=== PATIENT | male | born 1960 | race Caucasian/White ===

== ENCOUNTER 2016-10-22 14:15 | Observation (INO) | payer MEDICARE, MEDICAID ==
--- NOTE | 2016-10-22 14:48 | ER Document Report ---
ED Medical Screen (RME) - General Stated Complaint: CHEST PAIN Notes: 56 yo male, c/o acute onset left sided chest pain while on dialysis. pt dialyzed 1 1/2 h today. + shortness of breath, + nausea. + hx/o CHF, stents x 3. TRAVEL OUTSIDE OF THE [place] IN LAST 30 DAYS: No - Related Data Allergies/Adverse Reactions: cayenne pepper fruits Allergy (Intermediate, Verified 02/13/16 00:11) Past Medical History - Past Medical History Cardiac Medical History: Reports: Hx Atrial Fibrillation, Hx Congestive Heart Failure, Hx Coronary Artery Disease, Hx Hypertension Denies: Hx Heart Attack Pulmonary Medical History: Reports: Hx Pneumonia Denies: Hx Asthma, Hx Bronchitis, Hx COPD Neurological Medical History: Denies: Hx Cerebrovascular Accident, Hx Seizures Endocrine Medical History: Reports: Hx Diabetes Mellitus Type 2 Renal/ Medical History: Reports: Hx End Stage Renal Disease Musculoskeltal Medical History: Denies Hx Arthritis Past Surgical History: Reports: Hx Cardiac Surgery - stent x3, Hx Vascular Surgery - fistula left arm - Immunizations Hx Diphtheria, Pertussis, Tetanus Vaccination: Yes
[2016-10-22 15:17] LABS: ABSOLUTE BASOPHILS # (AUTO) 0.1 10^3/uL (0.0-0.2); ABSOLUTE EOSINOPHILS # (AUTO) 0.1 10^3/uL (0.0-0.6); ABSOLUTE LYMPHOCYTES (AUTO) 1.9 10^3/uL (0.5-4.7); ABSOLUTE MONOCYTES (AUTO) 0.6 10^3/uL (0.1-1.4); ABSOLUTE NEUT (AUTO) 6.3 10^3/uL (1.7-8.2); BASOPHILS % (AUTO) 0.7 % (0-2); HEMATOCRIT 34.2 % (37.9-51.0); HEMOGLOBIN 11.9 g/dL (13.5-17.0); HGB HCT DIFFERENCE 1.5; LYMPHOCYTES % (AUTO) 20.8 % (13-45); MEAN CORPUSCULAR HEMOGLOBIN 31.6 pg (27.0-33.4); MEAN CORPUSCULAR HGB CONC 34.8 g/dL (32.0-36.0); MEAN CORPUSCULAR VOLUME 91 fl (80-97); MONOCYTES % (AUTO) 7.1 % (3-13); RED BLOOD COUNT 3.76 10^6/uL (4.35-5.55); SEGMENTED NEUTROPHILS % (AUTO) 70.4 % (42-78)
[2016-10-22 15:38] LABS: ALANINE AMINOTRANSFERASE 21 U/L (21-72); ALKALINE PHOSPHATASE 89 U/L (38-126); ANION GAP 12 (5-19); ASPARTATE AMINO TRANSFERASE 15 U/L (17-59); BILIRUBIN,TOTAL 0.8 mg/dL (0.2-1.3); BLOOD UREA NITROGEN 33 mg/dL (7-20); CALCIUM 8.5 mg/dL (8.4-10.2); CARBON DIOXIDE 28 mmol/L (22-30); CHLORIDE 96 mmol/L (98-107); CREATINE KINASE 58 U/L (55-170); CREATININE RESULT 3.58 mg/dL (0.52-1.25); GLUCOSE 301 mg/dL (75-110); POTASSIUM 4.3 mmol/L (3.6-5.0); SODIUM 135.5 mmol/L (137-145); TOTAL PROTEIN 6.7 g/dL (6.3-8.2)
[2016-10-22 15:47] LABS: CREATINE KINASE MB 1.47 ng/mL (<4.55); TROPONIN I 0.02 ng/mL
[2016-10-22] MEDS ORDERED: METOCLOPRAMIDE HCL ORAL SOLN 10 MG/10 ML UDCUP PO ONE (17:05)
[2016-10-22] MEDS ORDERED: LIDOCAINE 2% VISCOUS SOLN 20 ML UDCUP PO ONE (17:05)
[2016-10-22] MEDS ORDERED: MAG HYDROX/AL HYDROX/SIMETH SUSP 30 ML UDCUP PO ONE (17:05)
[2016-10-22] MEDS ORDERED: ONDANSETRON HCL INJ/PF 4 MG/2 ML SDV IV PRN (17:49)
[2016-10-22] MEDS ORDERED: IPRATROPIUM/ALBUTEROL 0.5-2.5 MG/3 ML AMPUL NEB PRN (17:49)
[2016-10-22] MEDS ORDERED: ACETAMINOPHEN 325 MG TABLET PO PRN (17:49)
--- NOTE | 2016-10-22 18:23 | ER Document Report ---
ED General - General Chief Complaint: Chest Pain > 30 Stated Complaint: CHEST PAIN TRAVEL OUTSIDE OF THE [place] IN LAST 30 DAYS: No - HPI Patient complains to provider of: chest pain Notes: Patient coming in for evaluation of chest pain. Patient has history coronary artery disease states he has 6 stents placed in. Patient also has end-stage renal disease. Patient states while in dialysis he was sleeping woke up having central chest pain radiating to his back. Patient denies any nausea vomiting diarrhea. Patient was transported to the ER further evaluation. Patient denies any recent fevers chills antibiotics recent travel. Patient denies history of PE. Upon evaluation patient is resting comfortably easily arousable has he was sleeping upon my initial evaluation states he still having chest pain 6 out of 10. Patient states chest pain is worse when he moves around and when the chest is touched. Patient states he is concerned is that this is similar to when he had his heart attack in the past. - Related Data Allergies/Adverse Reactions: cayenne pepper fruits Allergy (Intermediate, Verified 10/22/16 14:45) Past Medical History - Social History Smoking Status: Never Smoker Chew tobacco use (# tins/day): No Frequency of alcohol use: None Drug Abuse: None Family History: Reviewed & Not Pertinent Patient has suicidal ideation: No Patient has homicidal ideation: No - Past Medical History Cardiac Medical History: Reports: Hx Atrial Fibrillation, Hx Congestive Heart Failure, Hx Coronary Artery Disease, Hx Hypertension Denies: Hx Heart Attack Pulmonary Medical History: Reports: Hx Pneumonia Denies: Hx Asthma, Hx Bronchitis, Hx COPD Neurological Medical History: Denies: Hx Cerebrovascular Accident, Hx Seizures Endocrine Medical History: Reports: Hx Diabetes Mellitus Type 2 Renal/ Medical History: Reports: Hx End Stage Renal Disease. Denies: Hx Peritoneal Dialysis Musculoskeltal Medical History: Denies Hx Arthritis Past Surgical History: Reports: Hx Cardiac Catheterization, Hx Cardiac Surgery - stent x3, Hx Vascular Surgery - fistula left arm - Immunizations Hx Diphtheria, Pertussis, Tetanus Vaccination: Yes Hx Pneumococcal Vaccination: 09/14/14 Review of Systems - Review of Systems Constitutional: No symptoms reported EENT: No symptoms reported Cardiovascular: Chest pain Respiratory: No symptoms reported Gastrointestinal: No symptoms reported Genitourinary: No symptoms reported Male Genitourinary: No symptoms reported Musculoskeletal: No symptoms reported Skin: No symptoms reported Hematologic/Lymphatic: No symptoms reported Neurological/Psychological: No symptoms reported -: Yes All other systems reviewed and negative Physical Exam - Vital signs Vitals: Temp Pulse Resp BP Pulse Ox 98.0 F 64 18 101/48 L 98 10/22/16 14:48 10/22/16 14:48 10/22/16 14:48 10/22/16 14:48 10/22/16 14:48 Interpretation: Normal - General General appearance: Appears well, Alert - HEENT Head: Normocephalic, Atraumatic Eyes: Normal Pupils: PERRL - Respiratory Respiratory status: No respiratory distress Chest status: Tender - Reproducible chest wall tenderness Breath sounds: Normal Chest palpation: Normal - Cardiovascular Rhythm: Regular Heart sounds: Normal auscultation Murmur: No - Abdominal Inspection: Normal Distension: No distension Bowel sounds: Normal Tenderness: Nontender Organomegaly: No organomegaly - Back Back: Normal, Nontender - Extremities General upper extremity: Normal inspection, Nontender, Normal color, Normal ROM , Normal temperature General lower extremity: Normal inspection, Nontender, Normal color, Normal ROM , Normal temperature, Normal weight bearing. No: Gabby's sign - Neurological Neuro grossly intact: Yes Cognition: Normal Orientation: AAOx4 [place] Coma Scale Eye Opening: Spontaneous [place] Coma Scale Verbal: Oriented [place] Coma Scale Motor: Obeys Commands [place] Coma Scale Total: 15 Speech: Normal Motor strength normal: LUE, RUE, LLE, RLE Sensory: Normal - Psychological Associated symptoms: Normal affect, Normal mood - Skin Skin Temperature: Warm Skin Moisture: Dry Skin Color: Normal Course - Re-evaluation Re-evalutation: 10/22/16 19:25 Patient is troponin EKG does not show any acute pathology. Discussed with patient's PCP. Initially requesting a CTA be performed to rule out PE however because patient is a dialysis patient after discussing with his internal medicine doctor Dr. Hanley and lucas the patient will have an receiving his next dialysis per internal medicine doctor's recommendation will not undergo CTa scan at this time Requesting second troponin and a VQ scan to be performed. At this time patient otherwise really stable. CT of the chest without contrast does show a mass that has no change from previous images. - Vital Signs Vital signs: Temp Pulse Resp BP Pulse Ox 98.0 F 64 11 L 114/63 99 10/22/16 14:48 10/22/16 14:48 10/22/16 19:00 10/22/16 18:01 10/22/16 19:00 - Laboratory Result Diagrams: 10/22/16 14:55 10/22/16 14:55 Laboratory results interpreted by me: 10/22/16 10/22/16 14:55 14:55 RBC 3.76 L Hgb 11.9 L Hct 34.2 L Sodium 135.5 L Chloride 96 L BUN 33 H Creatinine 3.58 H Est GFR ( Amer) 21 L Est GFR (Non-Af Amer) 18 L Glucose 301 H AST 15 L Discharge - Discharge Clinical Impression: CKD (chronic kidney disease) stage 5, GFR less than 15 ml/min Chest pain Qualifiers: Chest pain type: unspecified Qualified Code(s): R07.9 - Chest pain, unspecified CAD (coronary artery disease) Qualifiers: Coronary Disease-Associated Artery/Lesion type: unspecified vessel or lesion type [place] vs. transplanted heart: unspecified whether [place] or transplanted heart Associated angina: without angina Qualified Code(s): I25.10 - Atherosclerotic heart disease of [place] coronary artery without angina pectoris Condition: Fair Disposition: ADMITTED INPATIENT Admitting Provider: [facility] Admitted: [facility]
[2016-10-22] MEDS: DOCUSATE SODIUM 100 MG CAPSULE PO SCH (19:08)
--- NOTE | 2016-10-22 20:22 | PDOC CONSULTATION ---
Consultation Consult Date: 10/22/16 Attending physician:: PADMINI BOND Consult reason:: Chest pain and shortness of breath History of Present Illness Admission Date/PCP: 10/22/16 17:49 PADMINI BOND MD Patient complains of: Chest pain History of Present Illness: RITA GAFFNEY is a 56 year old male, well-known to me from previous office visits. He presents with chest pain worse the end of dialysis. This is described as sharp, getting worse on taking a deep breath. Patient describes radiation to the left arm and also describes radiation to the left leg. Patient describes the discomfort as rather constant and also gets worse on movement. There is no relation to exertion. There are no significant other associated symptoms. Patient did have a nuclear stress test I believe in May 2016 which was negative. Patient has history of chronic kidney disease on dialysis. Patient denied any recent fever or chills. Patient has history of sleep apnea and has been on CPAP therapy. Past Medical History Cardiac Medical History: Reports: Atrial Fibrillation, Congestive Heart Failure , Coronary Artery Disease, Hypertension Denies: Myocardial Infarction Pulmonary Medical History: Reports: Pneumonia Denies: Asthma, Bronchitis, Chronic Obstructive Pulmonary Disease (COPD) Neurological Medical History: Denies: Seizures Endocrine Medical History: Reports: Diabetes Mellitus Type 2 Renal/ Medical History: Reports: End Stage Renal Disease Musculoskeltal Medical History: Denies: Arthritis Hematology: Reports: Anemia Past Surgical History Past Surgical History: Reports: Cardiac Catheterization, Vascular Surgery - fistula left arm Social History Information Source: Patient Smoking Status: Never Smoker Frequency of Alcohol Use: Rare Hx Recreational Drug Use: No Drugs: None Hx Prescription Drug Abuse: No Family History Family History: Reviewed & Not Pertinent Parental Family History Reviewed: Yes Children Family History Reviewed: Yes Sibling(s) Family History Reviewed.: Yes - Negative for premature coronary artery disease or sudden cardiac in the family amongst first degree relatives. Patient does have family history of CAD but not premature. Medication/Allergy Home Medications: Furosemide [Lasix 80 mg Tablet] 80 mg PO QAM 08/14/15 Insulin Glargine,Hum.rec.anlog [Lantus Insulin 100 Unit/1 ml 10 ml] 55 units SQ BID 10/22/16 Ketoconazole [Nizoral] 1 applic TOP DAILY 10/22/16 Lorazepam [Ativan 0.5 mg Tablet] 0.5 mg PO Q12HP PRN 10/22/16 Pregabalin [Lyrica] 200 mg PO QHS 10/22/16 Tramadol HCl [Ultram 50 mg Tablet] 50 mg PO Q12HP PRN 10/22/16 Allergies/Adverse Reactions: cayenne pepper fruits Allergy (Intermediate, Verified 10/23/16 02:54) Review of Systems Review of Systems: Please see history of present illness and past medical history as wall. Constitutional: No fever or chills reported. Head : No recent chronic headaches, recent head injury. Eyes: No recent eye pain, diplopia, redness, discharge, acute visual changes. Ears: No recent chronic ear pain, acute hearing loss, ear discharge. Oral cavity: No recent ulcerations, bleeding, oral cavity discomfort. Neck: No recent acute neck pain reported. Hematologic: No recent easy bruising or bleeding or hematologic malignancy reported. Lymphatic: No recent lymphatic malignancy, chronic lymphadenopathy reported yet Cardiovascular system review: See history of present illness. Respiratory system review: No recent chronic cough, hemoptysis, blood clots in the lungs reported. Mild Shortness of breath on exertion Gastrointestinal system review: Negative for any recent acute or chronic abdominal pain, hematemesis, melena, recent change in bowel habits. Genitourinary system review: No recent acute or chronic hematuria, flank pain, UTI etc. reported. Patient with end-stage renal disease and on regular dialysis therapy. Skin system review: Negative for any recent abnormal bruising, no rash, no pruritus reported. Neurologic: No prior history of strokes, mini strokes, seizure disorder. Psychologic: No history of major psychosis or depression reported. Musculoskeletal: Minor aches and pains reported. No acute joint swelling reported. Endocrine: No recent polyuria, polydipsia, recent heat or cold intolerance. Physical Exam Vital Signs: Temp Pulse Resp BP Pulse Ox 98.0 F 64 11 L 114/63 99 10/22/16 14:48 10/22/16 14:48 10/22/16 19:00 10/22/16 18:01 10/22/16 19:00 Exam: GENERAL: well-nourished and in no acute distress. Alert and oriented x3 HEAD: Atraumatic, normocephalic. EYES: Pupils equal round and reactive to light, extraocular movements intact, sclera anicteric, conjunctiva are normal. ENT: TMs normal, nares patent, oropharynx clear without exudates. Moist mucous membranes. No oral ulcerations or bleeding gums noted NECK: supple without lymphadenopathy. Trachea is central. No cervical or axillary lymphadenopathy noted. Carotids are 2+, JVD WNL LUNGS: Respiration seems nonlabored, no significant accessory muscle action noted. Breath sounds clear to auscultation bilaterally and equal. No wheezes rales or rhonchi. No significant dullness noted on percussion. CHEST: Palpation of the chest wall shows elicitable chest wall tenderness but no other abnormalities. 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 ABDOMEN: Soft, no significant tenderness appreciated, normoactive bowel sounds. No guarding, no rebound. No rigidity noted . No masses appreciated. EXTREMITIES: Pedal pulses are 1-2+, no calf tenderness noted. No clubbing or cyanosis.trace to 1+ pedal edema noted NEUROLOGICAL: Focused neurological exam showed no significant neurologic deficit. Normal speech, no focal weakness appreciated. PSYCH: Normal mood, normal affect. Judgment and insight within normal limits. SKIN: No significant ecchymosis, rash, ulcerations or signs of pruritus noted. MUSCULOSKELETAL EXAM: No significant joint swelling noted. Results Laboratory Results: 10/22/16 18:40 Troponin I 0.021 EKG Comments: Sinus rhythm with nonspecific T-wave inversion inferior lead and V6. Impressions: Chest CT 10/22/16 00:00 IMPRESSION: The left lower lobe posterior mass and atelectasis appear unchanged compared with the January 2016 examination. Persistent basilar pleural thickening is present, also stable appearing. Minimal chronic appearing subsegmental atelectasis is present in the medial basilar segment of the right lower lobe. No acute consolidation or pleural effusion. Chest X-Ray 10/22/16 14:49 IMPRESSION: No significant interval change. No acute changes. Other findings as noted above Assessment & Plan - Diagnosis (1) CAD (coronary artery disease) Qualifiers: Coronary Disease-Associated Artery/Lesion type: unspecified vessel or lesion type [place] vs. transplanted heart: unspecified whether [place] or transplanted heart Associated angina: angina presence unspecified Qualified Code(s): I25.10 - Atherosclerotic heart disease of [place] coronary artery without angina pectoris Is this a current diagnosis for this admission?: YesPlan: Patient has known history of CAD. Currently patient presents with atypical chest pain which is felt to be noncardiac by exam. Patient does have some nonspecific T-wave changes which are probably related to LVH. Recent stress test results were reviewed. Will review previous heart catheterization result. At this point will continue with medical management and risk factor modification. Agree with obtaining VQ scan since patient at risk for pulmonary embolism and since patient has obesity. (2) CKD (chronic kidney disease) stage 5, GFR less than 15 ml/min Is this a current diagnosis for this admission?: YesPlan: Patient being followed by program director group work. Currently on dialysis on a regular basis. (3) Chest pain Qualifiers: Chest pain type: unspecified Qualified Code(s): R07.9 - Chest pain, unspecified Is this a current diagnosis for this admission?: Yes (4) Diabetes mellitus Qualifiers: Diabetes mellitus type: type 2 Chronic kidney disease stage: on chronic dialysis Is this a current diagnosis for this admission?: YesPlan: Recommend good control of blood sugar. However should avoid any hypoglycemia. Patient being expertly managed by primary care MSravanthi. (5) Obesity Qualifiers: Obesity severity: unspecified obesity severity Is this a current diagnosis for this admission?: YesPlan: Discussed obesity management with the patient. He was encouraged to try to lose weight. (6) Sleep apnea syndrome Qualifiers: Sleep apnea type: unspecified type Qualified Code(s): G47.30 - Sleep apnea, unspecified Is this a current diagnosis for this admission?: YesPlan: Patient has known history of sleep apnea syndrome. Patient will benefit from compliance with CPAP therapy. (7) Dyspnea Qualifiers: Dyspnea type: unspecified Qualified Code(s): R06.00 - Dyspnea, unspecified Is this a current diagnosis for this admission?: YesPlan: This is multifactorial. Could be related to obesity, diastolic dysfunction, ischemia equivalent etc. Have ordered a 2-D echo to evaluate for any pericardial effusion especially since patient has advanced renal failure and is on dialysis. - Notes Notes: CODE STATUS was discussed, patient remains full code. Surrogate decision-maker patient's . Multiple medical problems were addressed. - Time Time Spent: 30 to 50 Minutes - More than 50% of the time spent coordinating care , discussing management plans with involved caregivers. Management plans discussed with involved personnels. Medical decision making was of moderate complexity.
[2016-10-22] MEDS: OXYCODONE-ACETAMINOPHEN 5-325 MG TABLET PO PRN (20:38)
[2016-10-22 21:44] LABS: CREATINE KINASE MB 1.16 ng/mL (<4.55); TROPONIN I 0.018 ng/mL
[2016-10-23] MEDS ORDERED: INSULIN REG, HUMAN 100 UNIT/ML 3 ML VIAL (PYX) ONE (01:46)
[2016-10-23] MEDS ORDERED: DEXTROSE 40% GEL 15 GM TUBE X 2 PO PRN (02:02)
[2016-10-23] MEDS ORDERED: GLUCAGON,HUMAN RECOMB 1 MG INJ IM PRN ×2 (02:02→08:14)
[2016-10-23] MEDS ORDERED: DEXTROSE 50%-WATER SYRINGE 25 GM/50 ML DOSE IV PRN (02:02)
[2016-10-23] MEDS ORDERED: DEXTROSE 50%-WATER SYRINGE 12.5 GM/25 ML DOSE IV PRN (02:02)
[2016-10-23] MEDS ORDERED: DEXTROSE 40% GEL 15 GM TUBE PO PRN ×3 (02:02→08:14)
[2016-10-23 03:33] LABS: ANION GAP 9 (5-19); BLOOD UREA NITROGEN 42 mg/dL (7-20); CARBON DIOXIDE 30 mmol/L (22-30); CHLORIDE 97 mmol/L (98-107); CREATINE KINASE 39 U/L (55-170); CREATININE RESULT 4.84 mg/dL (0.52-1.25); GLUCOSE 393 mg/dL (75-110); MAGNESIUM 1.8 mg/dL (1.6-2.3); POTASSIUM 4.3 mmol/L (3.6-5.0); SODIUM 135.5 mmol/L (137-145)
[2016-10-23 03:44] LABS: CREATINE KINASE MB 0.91 ng/mL (<4.55); TROPONIN I 0.014 ng/mL
[2016-10-23] MEDS: LANSOPRAZOLE 30 MG TAB.RAP.DR PO SCH ×2 (05:56→17:04)
[2016-10-23] MEDS ORDERED: LANSOPRAZOLE 15 MG TAB.RAP.DR PO SCH (06:00)
[2016-10-23 08:11] LABS: APPEARANCE,URINE CLEAR; BILIRUBIN,URINE NEGATIVE (NEGATIVE); GLUCOSE, URINE >=500 mg/dL (NEGATIVE); KETONES,URINE NEGATIVE (NEGATIVE); LEUKOCYTE ESTERASE,URINE NEGATIVE (NEGATIVE); NITRITE,URINE NEGATIVE (NEGATIVE); PROTEIN,URINE 100 mg/dL (NEGATIVE); URINE SPECIFIC GRAVITY 1.017; UROBILINOGEN,URINE NEGATIVE mg/dL (<2.0)
[2016-10-23] MEDS ORDERED: LORAZEPAM 0.5 MG TABLET PO PRN (08:13)
[2016-10-23] MEDS ORDERED: TRAMADOL HCL 50 MG TABLET PO PRN ×2 (08:13→09:35)
--- NOTE | 2016-10-23 08:13 | PDOC PROGRESS REPORT ---
Subjective Progress Note for:: 10/23/16 Subjective:: Patient is doing fair denied any chest pain and no shortness of the breath recent CT chest is stable VQ scan is negative seen by the Dr. luna and suggest noncardiac atypical chest pain. Patient is also under a lot of stress due to his family situations. Physical Exam Vital Signs: Temp Pulse Resp BP Pulse Ox 97.4 F 56 L 16 109/57 L 100 10/23/16 07:22 10/23/16 07:22 10/23/16 07:22 10/23/16 07:22 10/23/16 07:22 Intake & Output 10/22/16 10/23/16 10/24/16 06:59 06:59 06:59 Intake Total 232 Output Total 0 Balance 232 Weight 142.3 kg General appearance: PRESENT: no acute distress, well-developed, well-nourished Head exam: PRESENT: atraumatic, normocephalic Eye exam: PRESENT: conjunctiva pink, EOMI, PERRLA. ABSENT: scleral icterus Ear exam: PRESENT: normal external ear exam Mouth exam: PRESENT: moist, tongue midline Neck exam: PRESENT: full ROM. ABSENT: carotid bruit, JVD, lymphadenopathy, thyromegaly Cardiovascular exam: PRESENT: RRR. ABSENT: diastolic murmur, rubs, systolic murmur Pulses: PRESENT: normal dorsalis pedis pul, +2 pedal pulses bilateral Vascular exam: PRESENT: normal capillary refill GI/Abdominal exam: PRESENT: normal bowel sounds, soft. ABSENT: distended, guarding, mass, organolmegaly, rebound, tenderness Rectal exam: PRESENT: deferred Neurological exam: PRESENT: alert, awake, oriented to person, oriented to place , oriented to time, oriented to situation, CN II-XII grossly intact. ABSENT: motor sensory deficit Psychiatric exam: PRESENT: appropriate affect, normal mood. ABSENT: homicidal ideation, suicidal ideation Skin exam: PRESENT: dry, intact, warm. ABSENT: cyanosis, rash Results Laboratory Results: 10/23/16 03:11 10/23/16 03:11 Sodium 135.5 L Potassium 4.3 Chloride 97 L Carbon Dioxide 30 Anion Gap 9 BUN 42 H Creatinine 4.84 H Est GFR ( Amer) 15 L Est GFR (Non-Af Amer) 12 L Glucose 393 H Calcium 8.0 L Magnesium 1.8 10/22/16 10/22/16 10/22/16 18:40 21:00 21:00 Creatine Kinase 45 L CK-MB (CK-2) 1.16 Troponin I 0.021 0.018 10/23/16 10/23/16 03:11 03:11 Creatine Kinase 39 L CK-MB (CK-2) 0.91 Troponin I 0.014 Impressions: Chest CT 10/22/16 00:00 IMPRESSION: The left lower lobe posterior mass and atelectasis appear unchanged compared with the January 2016 examination. Persistent basilar pleural thickening is present, also stable appearing. Minimal chronic appearing subsegmental atelectasis is present in the medial basilar segment of the right lower lobe. No acute consolidation or pleural effusion. Chest X-Ray 10/22/16 14:49 IMPRESSION: No significant interval change. No acute changes. Other findings as noted above Lung Scan-VQ NM 10/22/16 17:38 IMPRESSION: No ventilation-perfusion mismatches. Assessment & Plan - Diagnosis (1) Chest pain Qualifiers: Chest pain type: unspecified Qualified Code(s): R07.9 - Chest pain, unspecified Is this a current diagnosis for this admission?: YesPlan: So far all workup is negative and patient's denied any chest pain any more possibly may be acid reflux versus underlying stress and the chest wall pain (2) COPD (chronic obstructive pulmonary disease) Qualifiers: COPD type: unspecified COPD Qualified Code(s): J44.9 - Chronic obstructive pulmonary disease, unspecified Is this a current diagnosis for this admission?: YesPlan: order ct chest neb rx (3) Diabetes mellitus Qualifiers: Diabetes mellitus type: type 2 Chronic kidney disease stage: on chronic dialysis Is this a current diagnosis for this admission?: YesPlan: cont ss cont curr med (4) ESRD (end stage renal disease) on dialysis Is this a current diagnosis for this admission?: YesPlan: consult nephrology on hd (5) History of atrial fibrillation Is this a current diagnosis for this admission?: YesPlan: f/u with cardilogy (6) CAD (coronary artery disease) Qualifiers: Coronary Disease-Associated Artery/Lesion type: unspecified vessel or lesion type [place] vs. transplanted heart: unspecified whether [place] or transplanted heart Associated angina: angina presence unspecified Qualified Code(s): I25.10 - Atherosclerotic heart disease of [place] coronary artery without angina pectoris Is this a current diagnosis for this admission?: YesPlan: Recent stress test per cardiology is stable - Time Time Spent with patient: 15-24 minutes Medications reviewed and adjusted accordingly: Yes Anticipated discharge: Home Within: within 24 hours - Inpatient Certification Medical Necessity: Need Close Monitoring Due to Risk of Patient Decompensation Post Hospital Care: D/C [facility] Documentation - Plan Summary Plan Summary: Get the physical therapy evaluations and continues the current medications and if remained stable without any chest pain denied discharged next 24 hours
[2016-10-23] MEDS ORDERED: DEXTROSE 50%-WATER 25 GM/50 ML DISP.SYRIN IV PRN ×2 (08:14)
--- NOTE | 2016-10-23 08:31 | EKG REPORT ---
SEVERITY:- ABNORMAL ECG - SINUS RHYTHM LEFT VENTRICULAR HYPERTROPHY ABNORMAL T, CONSIDER ISCHEMIA, INFERIOR LEADS : Confirmed by: Adolfo Morse MD 23-Oct-2016 08:30:50
[2016-10-23] MEDS: ENOXAPARIN SODIUM INJ 30 MG/0.3 ML DISP.SYRIN SUBCUT SCH (08:35)
[2016-10-23] MEDS: INSULIN REG, HUMAN 100 UNIT/ML 3 ML VIAL (PYX) SUBCUT PRN ×4 (08:46→22:11)
[2016-10-23] MEDS ORDERED: ACETAMINOPHEN 325 MG TABLET PO PRN (09:36)
[2016-10-23 09:45] LABS: ABSOLUTE EOSINOPHILS # (AUTO) 0.1 10^3/uL (0.0-0.6); ABSOLUTE LYMPHOCYTES (AUTO) 2.2 10^3/uL (0.5-4.7); ABSOLUTE MONOCYTES (AUTO) 0.7 10^3/uL (0.1-1.4); ABSOLUTE NEUT (AUTO) 6.5 10^3/uL (1.7-8.2); BASOPHILS % (AUTO) 0.4 % (0-2); EOSINOPHILS % (AUTO) 1.3 % (0-6); HEMATOCRIT 33.1 % (37.9-51.0); HEMOGLOBIN 11.5 g/dL (13.5-17.0); HGB HCT DIFFERENCE 1.4; LYMPHOCYTES % (AUTO) 22.8 % (13-45); MEAN CORPUSCULAR HGB CONC 34.8 g/dL (32.0-36.0); MEAN CORPUSCULAR VOLUME 92 fl (80-97); RED BLOOD COUNT 3.61 10^6/uL (4.35-5.55); RED CELL DISTRIBUTION WIDTH 14.1 % (11.5-14.0); SEGMENTED NEUTROPHILS % (AUTO) 68.5 % (42-78); WHITE BLOOD COUNT 9.4 10^3/uL (4.0-10.5)
[2016-10-23] MEDS ORDERED: INSULIN GLARGINE,HUM.REC.ANLOG 1,000 UNIT/10 ML UNIT SUBCUT SCH (10:00)
[2016-10-23 10:14] LABS: CREATINE KINASE MB 1.04 ng/mL (<4.55); TROPONIN I 0.012 ng/mL
[2016-10-23] MEDS: DOCUSATE SODIUM 100 MG CAPSULE PO SCH ×2 (11:23→17:04)
--- NOTE | 2016-10-23 18:57 | XCELERA REPORT ---
[address] [address] Transthoracic Echocardiogram Report Name: RITA GAFFNEY Age: 56 yrs Gender: Male : 1960 Patient Status: Inpatient Patient Location: [id number]\S\328\S\A Study Date: 10/23/2016 09:41 AM Height: 71 in Weight: 305 lb BSA: 2.5 m2 Procedure: A complete two-dimensional transthoracic echocardiogram was performed (2D, M-mode, spectral and color flow Doppler). The study was technically difficult with many images being suboptimal in quality. Reason For Study: chest pain Ordering Physician: ELIZABETH JOSEPH Performed By: Marilu Guzman Interpretation Summary The Ejection Fraction estimate is 50-55% Left ventricular systolic function is borderline reduced. There is mild concentric left ventricular hypertrophy. The left ventricle is grossly normal size. Doppler measurements suggest pseudonormalized left ventricular relaxation, which is associated with grade II/IV or mild to moderate diastolic dysfunction Wall motion cannot be accurately commented on, but no definite regional wall motion abnormalities noted. The right ventricle is mildly dilated. The right ventricular systolic function is normal. The left atrium is moderately dilated. The right atrium is borderline dilated. There is a trace amount of mitral regurgitation There is no mitral valve stenosis. There is no aortic valve stenosis No aortic regurgitation is present. There is a trace to mild amount of tricuspid regurgitation There is mild pulmonary hypertension by echo Right ventricular systolic pressure is estimated to be elevated at 30- 40mmHg. There is no pericardial effusion. MMode/2D Measurements \T\ Calculations RVDd: 3.9 cm LVIDd: 5.6 cm FS: 25.4 % Ao root diam: 3.4 cm IVSd: 0.96 cm LVIDs: 4.2 cm EDV(Teich): 154.2 ml LVPWd: 0.98 cm ESV(Teich): 77.9 ml Ao root area: 8.9 cm2 EF(Teich): 49.5 % LA dimension: 4.9 cm Doppler Measurements \T\ Calculations MV E max esther: MV P1/2t max esther: Ao V2 max: LV V1 max P.4 cm/sec 104.4 cm/sec 154.4 cm/sec 5.1 mmHg MV A max esther: MV P1/2t: 74.1 msec Ao max PG: LV V1 max: 116.0 cm/sec 9.5 mmHg 113.0 cm/sec MV E/A: 0.90 MVA(P1/2t): 3.0 cm2 MV dec slope: 412.2 cm/sec2 MV dec time: 0.26 sec PA V2 max: TR max esther: 106.1 cm/sec 282.3 cm/sec PA max PG: TR max P.9 mmHg 4.5 mmHg Left Ventricle The left ventricle is grossly normal size. There is mild concentric left ventricular hypertrophy. Left ventricular systolic function is borderline reduced. The Ejection Fraction estimate is 50-55%. Doppler measurements suggest pseudonormalized left ventricular relaxation, which is associated with grade II/IV or mild to moderate diastolic dysfunction. Wall motion cannot be accurately commented on, but no definite regional wall motion abnormalities noted. Right Ventricle The right ventricle is mildly dilated. There is normal right ventricular wall thickness. The right ventricular systolic function is normal. Atria The right atrium is borderline dilated. The left atrium is moderately dilated. Interarterial septum not well visualized and not well dopplered. Cannot comment on ASD/PFO presence. Mitral Valve There is mild mitral annular calcification. There is no mitral valve stenosis. There is a trace amount of mitral regurgitation. Aortic Valve The aortic valve is grossly normal. There is no aortic valve stenosis. No aortic regurgitation is present. Tricuspid Valve The tricuspid valve is not well visualized, but is grossly normal. There is no tricuspid stenosis. There is a trace to mild amount of tricuspid regurgitation. There is mild pulmonary hypertension by echo. Right ventricular systolic pressure is estimated to be elevated at 30-40mmHg. Pulmonic Valve The pulmonic valve is not well visualized. Great Vessels The aortic root is not well visualized but is probably normal size. The inferior vena cava was not well visualized. Effusions There is no pericardial effusion. : ELIZABETH JOSEPH > Elizabeth Joseph
--- NOTE | 2016-10-23 20:39 | PDOC PROGRESS REPORT ---
Subjective Progress Note for:: 10/23/16 Subjective:: Patient seems to be doing better with significant improvement. Pt is denying any chest arm or neck discomfort. Patient denying any PND, orthopnea. Patient denied any sustained palpitations, dizziness, syncope, near syncope. Patient denying any fever chills. Patient denying any other significant discomfort. Patient is maintaining sinus rhythm. Review of systems: Rest review of systems negative. Medications: Medications have been reviewed. Physical Exam Vital Signs: Temp Pulse Resp BP Pulse Ox 98.3 F 73 18 96/41 L 95 10/23/16 15:52 10/23/16 19:00 10/23/16 15:52 10/23/16 15:52 10/23/16 15:52 Intake & Output 10/22/16 10/23/16 10/24/16 06:59 06:59 06:59 Intake Total 232 1098 Output Total 0 Balance 232 1098 Weight 142.3 kg Exam: GENERAL: well-nourished and in no acute distress. Alert and oriented x3 HEAD: Atraumatic, normocephalic. EYES: Pupils equal round and reactive to light, extraocular movements intact, sclera anicteric, conjunctiva are normal. ENT: TMs normal, nares patent, oropharynx clear without exudates. Moist mucous membranes. No oral ulcerations or bleeding gums noted NECK: supple without lymphadenopathy. Trachea is central. No cervical or axillary lymphadenopathy noted. Carotids are 2+, JVD WNL LUNGS: Respiration seems nonlabored, no significant accessory muscle action noted. Breath sounds clear to auscultation bilaterally and equal. No wheezes rales or rhonchi. No significant dullness noted on percussion. CHEST: Palpation of the chest wall shows no significant chest wall tenderness or abnormalities. HEART: [place] [employer]ELOPMENT, No PSH, 1/6 FRANKIE aortic area, 1/6 harris systolic murmur mitral area, no rubs, no gallops. ABDOMEN: Soft, no significant tenderness appreciated, normoactive bowel sounds. No guarding, no rebound. No rigidity noted . No masses appreciated. EXTREMITIES: Pedal pulses are 1-2+, no calf tenderness noted. No clubbing or cyanosis.trace to 1+ pedal edema noted NEUROLOGICAL: Focused neurological exam showed no significant neurologic deficit. Normal speech, no focal weakness appreciated. PSYCH: Normal mood, normal affect. Judgment and insight within normal limits. SKIN: No significant ecchymosis, rash, ulcerations or signs of pruritus noted. MUSCULOSKELETAL EXAM: No significant joint swelling noted. Results Laboratory Results: 10/23/16 09:14 10/23/16 03:11 10/23/16 10/23/16 10/23/16 03:11 07:32 09:14 WBC 9.4 RBC 3.61 L Hgb 11.5 L Hct 33.1 L MCV 92 MCH 32.0 MCHC 34.8 RDW 14.1 H Plt Count 191 Seg Neutrophils % 68.5 Lymphocytes % 22.8 Monocytes % 7.0 Eosinophils % 1.3 Basophils % 0.4 Absolute Neutrophils 6.5 Absolute Lymphocytes 2.2 Absolute Monocytes 0.7 Absolute Eosinophils 0.1 Absolute Basophils 0.0 Sodium 135.5 L Potassium 4.3 Chloride 97 L Carbon Dioxide 30 Anion Gap 9 BUN 42 H Creatinine 4.84 H Est GFR ( Amer) 15 L Est GFR (Non-Af Amer) 12 L Glucose 393 H Calcium 8.0 L Magnesium 1.8 Urine Color YELLOW Urine Appearance CLEAR Urine pH 6.0 Ur Specific [place] 1.017 Urine Protein 100 H Urine Glucose (UA) >=500 H Urine Ketones NEGATIVE Urine Blood NEGATIVE Urine Nitrite NEGATIVE Ur Leukocyte Esterase NEGATIVE Urine WBC (Auto) 1 Urine RBC (Auto) 0 10/22/16 10/22/16 10/22/16 18:40 21:00 21:00 Creatine Kinase 45 L CK-MB (CK-2) 1.16 Troponin I 0.021 0.018 NT-Pro-B Natriuret Pep 10/23/16 10/23/16 10/23/16 03:11 03:11 09:14 Creatine Kinase 39 L CK-MB (CK-2) 0.91 1.04 Troponin I 0.014 0.012 NT-Pro-B Natriuret Pep 2480 H Impressions: Chest CT 10/22/16 00:00 IMPRESSION: The left lower lobe posterior mass and atelectasis appear unchanged compared with the January 2016 examination. Persistent basilar pleural thickening is present, also stable appearing. Minimal chronic appearing subsegmental atelectasis is present in the medial basilar segment of the right lower lobe. No acute consolidation or pleural effusion. Chest X-Ray 10/22/16 14:49 IMPRESSION: No significant interval change. No acute changes. Other findings as noted above Lung Scan-VQ NM 10/22/16 17:38 IMPRESSION: No ventilation-perfusion mismatches. Assessment & Plan - Diagnosis (1) CAD (coronary artery disease) Qualifiers: Coronary Disease-Associated Artery/Lesion type: unspecified vessel or lesion type [place] vs. transplanted heart: unspecified whether [place] or transplanted heart Associated angina: angina presence unspecified Qualified Code(s): I25.10 - Atherosclerotic heart disease of [place] coronary artery without angina pectoris Is this a current diagnosis for this admission?: Yes (2) CKD (chronic kidney disease) stage 5, GFR less than 15 ml/min Is this a current diagnosis for this admission?: Yes (3) Chest pain Qualifiers: Chest pain type: unspecified Qualified Code(s): R07.9 - Chest pain, unspecified Is this a current diagnosis for this admission?: Yes (4) Diabetes mellitus Qualifiers: Diabetes mellitus type: type 2 Chronic kidney disease stage: on chronic dialysis Is this a current diagnosis for this admission?: Yes (5) Obesity Qualifiers: Obesity severity: unspecified obesity severity Is this a current diagnosis for this admission?: Yes (6) Sleep apnea syndrome Qualifiers: Sleep apnea type: unspecified type Qualified Code(s): G47.30 - Sleep apnea, unspecified Is this a current diagnosis for this admission?: Yes (7) Dyspnea Qualifiers: Dyspnea type: unspecified Qualified Code(s): R06.00 - Dyspnea, unspecified Is this a current diagnosis for this admission?: Yes - Notes Notes: CAD: Patient has history of stent placement many years ago. Recent stress test within the last 1 year was negative. So far cardiac enzymes are negative. Chest pain is felt to be atypical. Feel that patient stable from cardiac standpoint. Chronic kidney disease: Currently stable. Chest pain: Much improved resolved. Diabetes: Stable. Patient may have element of neuropathic pain. Obesity: Elevation to advised to lose weight. Sleep apnea syndrome: Patient claims compliance with CPAP therapy. Dyspnea: Stable. 2-D echocardiogram results showed no evidence of pericardial effusion or pericarditis. No other significant abnormalities were noted. - Time Time with patient: 15-25 minutes - CODE STATUS was discussed, patient remains full code. Surrogate decision-maker unchanged. Multiple medical problems were addressed.More than 50% of the time spent coordinating care, discussing management plans with involved caregivers. Management plans discussed with involved personnels. Medical decision making was of moderate complexity.
[2016-10-23] MEDS ORDERED: PREGABALIN 100 MG CAPSULE PO SCH (22:00)
[2016-10-23] MEDS ORDERED: (PENDING PHARMACY ID) (Pregabalin [Lyrica] 200 MG) PO SCH (22:00)
[2016-10-23] MEDS: INSULIN GLARGINE,HUM.REC.ANLOG 1,000 UNIT/10 ML UNIT SUBCUT SCH (22:11)
[2016-10-23] MEDS: OXYCODONE-ACETAMINOPHEN 5-325 MG TABLET PO PRN (22:19)
[2016-10-24] MEDS: LANSOPRAZOLE 30 MG TAB.RAP.DR PO SCH (05:09)
[2016-10-24 05:49] LABS: ABSOLUTE EOSINOPHILS # (AUTO) 0.1 10^3/uL (0.0-0.6); ABSOLUTE LYMPHOCYTES (AUTO) 2.5 10^3/uL (0.5-4.7); ABSOLUTE MONOCYTES (AUTO) 0.6 10^3/uL (0.1-1.4); ABSOLUTE NEUT (AUTO) 4.8 10^3/uL (1.7-8.2); BASOPHILS % (AUTO) 0.5 % (0-2); EOSINOPHILS % (AUTO) 1.2 % (0-6); HEMATOCRIT 30.7 % (37.9-51.0); HEMOGLOBIN 10.6 g/dL (13.5-17.0); HGB HCT DIFFERENCE 1.1; LYMPHOCYTES % (AUTO) 31.1 % (13-45); MEAN CORPUSCULAR HEMOGLOBIN 31.4 pg (27.0-33.4); MEAN CORPUSCULAR HGB CONC 34.4 g/dL (32.0-36.0); MEAN CORPUSCULAR VOLUME 91 fl (80-97); MONOCYTES % (AUTO) 7.4 % (3-13); RED BLOOD COUNT 3.37 10^6/uL (4.35-5.55); RED CELL DISTRIBUTION WIDTH 13.9 % (11.5-14.0); SEGMENTED NEUTROPHILS % (AUTO) 59.8 % (42-78)
[2016-10-24 06:07] LABS: ANION GAP 12 (5-19); BLOOD UREA NITROGEN 56 mg/dL (7-20); CALCIUM 8.2 mg/dL (8.4-10.2); CARBON DIOXIDE 26 mmol/L (22-30); CHLORIDE 97 mmol/L (98-107); CREATININE RESULT 6.13 mg/dL (0.52-1.25); GLUCOSE 181 mg/dL (75-110); POTASSIUM 4.1 mmol/L (3.6-5.0); SODIUM 135.1 mmol/L (137-145)
[2016-10-24] MEDS ORDERED: HEPARIN SOD (PORCINE) 1,000 UNIT/ML 10 ML VIAL IV PRN (10:19)
--- NOTE | 2016-10-24 11:33 | PDOC CONSULTATION ---
Consultation Consult Date: 10/24/16 Consult reason:: For hemodialysis. History of Present Illness Admission Date/PCP: 10/22/16 17:49 PADMINI BOND MD History of Present Illness: RITA GAFFNEY is a 56 year old male, with history of complicated diabetes mellitus, hypertension and ESRD on dialysis comes to the ER with history of chest pain which got worse at the end of dialysis. This is described as sharp, getting worse on taking a deep breath. Patient describes radiation to the left arm and also describes radiation to the left leg. Patient describes the discomfort as rather constant and also gets worse on movement. There is no relation to exertion. There are no significant other associated symptoms. Patient did have a nuclear stress test ? in May 2016 which was negative. Patient denied any recent fever or chills. Patient has history of sleep apnea and has been on CPAP therapy. Currently he is being seen on hemodialysis and undergoing dialysis without any issues. He is chest pain-free. Breathing is normal Past Medical History Cardiac Medical History: Reports: Atrial Fibrillation, Coronary Artery Disease, Hypertension-primary Denies: Myocardial Infarction Pulmonary Medical History: Reports: Pneumonia Denies: Asthma, Bronchitis, Chronic Obstructive Pulmonary Disease (COPD) Neurological Medical History: Denies: Seizures Endocrine Medical History: Reports: Diabetes Mellitus Type 2 Renal/ Medical History: Reports: End Stage Renal Disease Musculoskeltal Medical History: Denies: Arthritis Past Surgical History Past Surgical History: Reports: Cardiac Catheterization, Vascular Surgery - fistula left arm Social History Smoking Status: Never Smoker Frequency of Alcohol Use: Rare Hx Recreational Drug Use: No Drugs: None Hx Prescription Drug Abuse: No - Advance Directive Resuscitation Status: Full Code Family History Parental Family History Reviewed: Yes - Negative for ESRD Children Family History Reviewed: No Sibling(s) Family History Reviewed.: No Medication/Allergy Home Medications: Furosemide [Lasix 80 mg Tablet] 80 mg PO QAM 08/14/15 Insulin Glargine,Hum.rec.anlog [Lantus Insulin 100 Unit/1 ml 10 ml] 55 units SQ BID 10/22/16 Ketoconazole [Nizoral] 1 applic TOP DAILY 10/22/16 Lorazepam [Ativan 0.5 mg Tablet] 0.5 mg PO Q12HP PRN 10/22/16 Pregabalin [Lyrica] 200 mg PO QHS 10/22/16 Tramadol HCl [Ultram 50 mg Tablet] 50 mg PO Q12HP PRN 10/22/16 Oxycodone HCl 5 mg PO DAILY PRN #30 tablet 10/24/16 Allergies/Adverse Reactions: cayenne pepper fruits Allergy (Intermediate, Verified 10/23/16 02:54) Review of Systems Review of Systems: Constitutional: PRESENT: as per HPI. ABSENT: chills, fever(s), headache(s), weight gain, weight loss Eyes: ABSENT: visual disturbances Ears: ABSENT: hearing changes Cardiovascular: ABSENT: edema, orthropnea, palpitations Respiratory: ABSENT: cough, hemoptysis Gastrointestinal: ABSENT: abdominal pain, constipation, diarrhea, hematemesis, hematochezia, nausea, vomiting Genitourinary: ABSENT: dysuria, hematuria Musculoskeletal: ABSENT: joint swelling Integumentary: ABSENT: rash, wounds Neurological: ABSENT: abnormal gait, abnormal speech, confusion, dizziness, focal weakness, syncope Psychiatric: ABSENT: anxiety, depression, homicidal ideation, suicidal ideation Endocrine: ABSENT: cold intolerance, heat intolerance, menstrual abnormalities, polydipsia, polyuria Hematologic/Lymphatic: ABSENT: easy bleeding, easy bruising, lymphadenopathy Physical Exam Vital Signs: Temp Pulse Resp BP Pulse Ox 98.4 F 75 16 128/59 H 96 10/24/16 03:52 10/24/16 08:00 10/24/16 08:00 10/24/16 03:52 10/24/16 08:00 Intake & Output 10/23/16 10/24/16 10/25/16 06:59 06:59 06:59 Intake Total 232 1940 Output Total 0 Balance 232 1940 Weight 142.3 kg 143 kg General appearance: PRESENT: no acute distress Eye exam: PRESENT: EOMI, PERRLA. ABSENT: nystagmus, periorbital swelling Mouth exam: PRESENT: moist, neck supple Neck exam: ABSENT: lymphadenopathy, meningismus, tenderness, thyromegaly, tracheal deviation Respiratory exam: PRESENT: clear to auscultation nelson. ABSENT: crackles, rhonchi Cardiovascular exam: PRESENT: +S1, +S2 GI/Abdominal exam: PRESENT: normal bowel sounds, soft. ABSENT: ascites, firm, tenderness Extremities exam: PRESENT: +1 edema Neurological exam: PRESENT: alert, awake, oriented to person, oriented to place , oriented to time Skin exam: PRESENT: normal color, warm. ABSENT: cyanosis, dry, erythema, mottled, rash Results Laboratory Results: 10/24/16 05:08 10/24/16 05:08 10/24/16 10/24/16 05:08 05:08 WBC 8.0 RBC 3.37 L Hgb 10.6 L Hct 30.7 L MCV 91 MCH 31.4 MCHC 34.4 RDW 13.9 Plt Count 175 Seg Neutrophils % 59.8 Lymphocytes % 31.1 Monocytes % 7.4 Eosinophils % 1.2 Basophils % 0.5 Absolute Neutrophils 4.8 Absolute Lymphocytes 2.5 Absolute Monocytes 0.6 Absolute Eosinophils 0.1 Absolute Basophils 0.0 Sodium 135.1 L Potassium 4.1 Chloride 97 L Carbon Dioxide 26 Anion Gap 12 BUN 56 H Creatinine 6.13 H Est GFR ( Amer) 11 L Est GFR (Non-Af Amer) 10 L Glucose 181 H Calcium 8.2 L 10/22/16 10/22/16 10/22/16 18:40 21:00 21:00 Creatine Kinase 45 L CK-MB (CK-2) 1.16 Troponin I 0.021 0.018 NT-Pro-B Natriuret Pep 10/23/16 10/23/16 10/23/16 03:11 03:11 09:14 Creatine Kinase 39 L CK-MB (CK-2) 0.91 1.04 Troponin I 0.014 0.012 NT-Pro-B Natriuret Pep 2480 H Impressions: Chest CT 10/22/16 00:00 IMPRESSION: The left lower lobe posterior mass and atelectasis appear unchanged compared with the January 2016 examination. Persistent basilar pleural thickening is present, also stable appearing. Minimal chronic appearing subsegmental atelectasis is present in the medial basilar segment of the right lower lobe. No acute consolidation or pleural effusion. Chest X-Ray 10/22/16 14:49 IMPRESSION: No significant interval change. No acute changes. Other findings as noted above Lung Scan-VQ NM 10/22/16 17:38 IMPRESSION: No ventilation-perfusion mismatches. Assessment & Plan - Diagnosis (1) Chest pain Qualifiers: Chest pain type: unspecified Qualified Code(s): R07.9 - Chest pain, unspecified Is this a current diagnosis for this admission?: YesPlan: Currently chest pain-free. Evaluation and management as per Dr. Bond and Dr. Dial. (2) Obesity Qualifiers: Obesity severity: unspecified obesity severity Is this a current diagnosis for this admission?: YesPlan: Discussed weight losing measures. (3) Sleep apnea syndrome Qualifiers: Sleep apnea type: unspecified type Qualified Code(s): G47.30 - Sleep apnea, unspecified Is this a current diagnosis for this admission?: Yes (4) Diabetes mellitus Qualifiers: Diabetes mellitus type: type 2 Chronic kidney disease stage: on chronic dialysis Is this a current diagnosis for this admission?: YesPlan: Advised tight blood sugar control (5) ESRD (end stage renal disease) on dialysis Is this a current diagnosis for this admission?: YesPlan: Patient on dialysis now. He is undergoing dialysis without issues. Orders discussed with treating nurse. Is on a 2K bath and will extract between 2 and 3 L of fluid. Advised compliance with diet medications and dialysis.
[2016-10-24] MEDS: ENOXAPARIN SODIUM INJ 30 MG/0.3 ML DISP.SYRIN SUBCUT SCH (12:31)
[2016-10-24] MEDS: INSULIN GLARGINE,HUM.REC.ANLOG 1,000 UNIT/10 ML UNIT SUBCUT SCH (12:31)
[2016-10-24] MEDS: DOCUSATE SODIUM 100 MG CAPSULE PO SCH (12:32)
--- NOTE | 2016-10-24 12:40 | PDOC PROGRESS REPORT ---
Subjective Progress Note for:: 10/24/16 Subjective:: Patient seems to be doing better with significant improvement. Pt is denying any chest arm or neck discomfort. Patient denying any PND, orthopnea. Patient denied any sustained palpitations, dizziness, syncope, near syncope. Patient denying any fever chills. Patient denying any other significant discomfort. Patient is maintaining sinus rhythm. Review of systems: Rest review of systems negative. Medications: Medications have been reviewed. Physical Exam Vital Signs: Temp Pulse Resp BP Pulse Ox 98.4 F 75 16 128/59 H 96 10/24/16 03:52 10/24/16 08:00 10/24/16 08:00 10/24/16 03:52 10/24/16 08:00 Intake & Output 10/23/16 10/24/16 10/25/16 06:59 06:59 06:59 Intake Total 232 1940 Output Total 0 Balance 232 1940 Weight 142.3 kg 143 kg Exam: GENERAL: well-nourished and in no acute distress. Alert and oriented x3 HEAD: Atraumatic, normocephalic. EYES: Pupils equal round and reactive to light, extraocular movements intact, sclera anicteric, conjunctiva are normal. ENT: TMs normal, nares patent, oropharynx clear without exudates. Moist mucous membranes. No oral ulcerations or bleeding gums noted NECK: supple without lymphadenopathy. Trachea is central. No cervical or axillary lymphadenopathy noted. Carotids are 2+, JVD WNL LUNGS: Respiration seems nonlabored, no significant accessory muscle action noted. Breath sounds clear to auscultation bilaterally and equal. No wheezes rales or rhonchi. No significant dullness noted on percussion. CHEST: Palpation of the chest wall shows no significant chest wall tenderness or abnormalities. HEART: [place] [employer], No PSH, 1/6 FRANKIE aortic area, 1/6 harris systolic murmur mitral area, no rubs, no gallops. ABDOMEN: Soft, no significant tenderness appreciated, normoactive bowel sounds. No guarding, no rebound. No rigidity noted . No masses appreciated. EXTREMITIES: Pedal pulses are 1-2+, no calf tenderness noted. No clubbing or cyanosis.trace to 1+ pedal edema noted NEUROLOGICAL: Focused neurological exam showed no significant neurologic deficit. Normal speech, no focal weakness appreciated. PSYCH: Normal mood, normal affect. Judgment and insight within normal limits. SKIN: No significant ecchymosis, rash, ulcerations or signs of pruritus noted. MUSCULOSKELETAL EXAM: No significant joint swelling noted. Results Laboratory Results: 10/24/16 05:08 10/24/16 05:08 10/24/16 10/24/16 05:08 05:08 WBC 8.0 RBC 3.37 L Hgb 10.6 L Hct 30.7 L MCV 91 MCH 31.4 MCHC 34.4 RDW 13.9 Plt Count 175 Seg Neutrophils % 59.8 Lymphocytes % 31.1 Monocytes % 7.4 Eosinophils % 1.2 Basophils % 0.5 Absolute Neutrophils 4.8 Absolute Lymphocytes 2.5 Absolute Monocytes 0.6 Absolute Eosinophils 0.1 Absolute Basophils 0.0 Sodium 135.1 L Potassium 4.1 Chloride 97 L Carbon Dioxide 26 Anion Gap 12 BUN 56 H Creatinine 6.13 H Est GFR ( Amer) 11 L Est GFR (Non-Af Amer) 10 L Glucose 181 H Calcium 8.2 L 10/22/16 10/22/16 10/22/16 18:40 21:00 21:00 Creatine Kinase 45 L CK-MB (CK-2) 1.16 Troponin I 0.021 0.018 NT-Pro-B Natriuret Pep 10/23/16 10/23/16 10/23/16 03:11 03:11 09:14 Creatine Kinase 39 L CK-MB (CK-2) 0.91 1.04 Troponin I 0.014 0.012 NT-Pro-B Natriuret Pep 2480 H Impressions: Chest CT 10/22/16 00:00 IMPRESSION: The left lower lobe posterior mass and atelectasis appear unchanged compared with the January 2016 examination. Persistent basilar pleural thickening is present, also stable appearing. Minimal chronic appearing subsegmental atelectasis is present in the medial basilar segment of the right lower lobe. No acute consolidation or pleural effusion. Chest X-Ray 10/22/16 14:49 IMPRESSION: No significant interval change. No acute changes. Other findings as noted above Lung Scan-VQ NM 10/22/16 17:38 IMPRESSION: No ventilation-perfusion mismatches. Assessment & Plan - Diagnosis (1) CAD (coronary artery disease) Qualifiers: Coronary Disease-Associated Artery/Lesion type: unspecified vessel or lesion type [place] vs. transplanted heart: unspecified whether [place] or transplanted heart Associated angina: angina presence unspecified Qualified Code(s): I25.10 - Atherosclerotic heart disease of [place] coronary artery without angina pectoris Is this a current diagnosis for this admission?: Yes (2) CKD (chronic kidney disease) stage 5, GFR less than 15 ml/min Is this a current diagnosis for this admission?: Yes (3) Chest pain Qualifiers: Chest pain type: unspecified Qualified Code(s): R07.9 - Chest pain, unspecified Is this a current diagnosis for this admission?: Yes (4) Diabetes mellitus Qualifiers: Diabetes mellitus type: type 2 Chronic kidney disease stage: on chronic dialysis Is this a current diagnosis for this admission?: Yes (5) Obesity Qualifiers: Obesity severity: unspecified obesity severity Is this a current diagnosis for this admission?: Yes (6) Sleep apnea syndrome Qualifiers: Sleep apnea type: unspecified type Qualified Code(s): G47.30 - Sleep apnea, unspecified Is this a current diagnosis for this admission?: Yes (7) Dyspnea Qualifiers: Dyspnea type: unspecified Qualified Code(s): R06.00 - Dyspnea, unspecified Is this a current diagnosis for this admission?: Yes - Notes Notes: CAD: Patient has history of stent placement many years ago. Recent stress test within the last 1 year was negative. So far cardiac enzymes are negative. Chest pain is felt to be atypical. Feel that patient stable from cardiac standpoint. Chronic kidney disease: Currently stable. Patient had dialysis today in was seen on dialysis and tolerating dialysis well. Chest pain: resolved. Most likely musculoskeletal in etiology. Diabetes: Stable. Patient may have element of neuropathic pain. Obesity: Elevation to advised to lose weight. Sleep apnea syndrome: Patient claims compliance with CPAP therapy. Dyspnea: Stable. Patient encouraged in regular walking program and also in weight loss 2-D echocardiogram results showed no evidence of pericardial effusion or pericarditis. No other significant abnormalities were noted. - Time Time with patient: 15-25 minutes - CODE STATUS was discussed, patient remains full code. Surrogate decision-maker unchanged. Multiple medical problems were addressed.More than 50% of the time spent coordinating care, discussing management plans with involved caregivers. Management plans discussed with involved personnels. Medical decision making was of moderate complexity.
[2016-10-24 12:44] VITALS: BP 133/56
--- NOTE | 2016-10-24 13:22 | PDOC DISCHARGE SUMMARY ---
General - Admit/Disc Date/PCP Admission Date/Primary Care Provider: 10/22/16 17:49 PADMINI BOND MD Discharge Date: 10/24/16 - Discharge Diagnosis (1) Chest pain Is this a current diagnosis for this admission?: YesSummary: All cardiac workup is most likely atypical chest wall pain is relieved with the pain medications (2) COPD (chronic obstructive pulmonary disease) Is this a current diagnosis for this admission?: YesSummary: All stable (3) Diabetes mellitus Is this a current diagnosis for this admission?: YesSummary: Continues the current medications (4) ESRD (end stage renal disease) on dialysis Is this a current diagnosis for this admission?: YesSummary: Stable follow-up with Dr. Hanley on hemodialysis (5) History of atrial fibrillation Is this a current diagnosis for this admission?: YesSummary: Stable (6) CAD (coronary artery disease) Is this a current diagnosis for this admission?: YesSummary: Follow with the cardiology - Additional Information Resuscitation Status: Full Code Discharge Diet: As Tolerated Discharge Activity: Activity As Tolerated Home Medications: Furosemide [Lasix 80 mg Tablet] 80 mg PO QAM 08/14/15 Insulin Glargine,Hum.rec.anlog [Lantus Insulin 100 Unit/1 ml 10 ml] 55 units SQ BID 10/22/16 Ketoconazole [Nizoral] 1 applic TOP DAILY 10/22/16 Lorazepam [Ativan 0.5 mg Tablet] 0.5 mg PO Q12HP PRN 10/22/16 Pregabalin [Lyrica] 200 mg PO QHS 10/22/16 Tramadol HCl [Ultram 50 mg Tablet] 50 mg PO Q12HP PRN 10/22/16 Oxycodone HCl 5 mg PO DAILY PRN #30 tablet 10/24/16 History of Present Illness History of Present Illness: RITA GAFFNEY is a 56 year old male pt came to er with c/o chest pain end of hd today and brought in er and all ekg/ ce is neg pt still have chest pain and reproducable pain no sob no nausea/no vomiting no cough no fever when i saw pt doing fair and resting comfortable on bed and his is on bed site d/w er physical and order another set of ce and v/q scan and if neg admit in formerly [facility] Hospital Course Hospital Course: This is a 56-year-old male came from the dialysis with the complaining of chest pain and hypotension's. Patient initial workup was all negative in the ER. In the EKG and a cardiac and also the CT of the chest and a VQ scan. Patient also seen by cardiology and echocardiogram was also done and also stable to. And was given some Percocet and which relieved the pain is all reproducible chest wall pain. Also under a lot of stress from his family situations as per discussed with the patient and his . Otherwise doing very well without any chest pain no shortness of the breath patients walk on the hallway and patient' s p.o. intake is fair. Discussed with the patient and the all the test results and all coordinate care with other physicians and the patient is discharged home with the stable condition follow-up outpatient in 1 week Physical Exam Vital Signs: Temp Pulse Resp BP Pulse Ox 98.2 F 63 16 133/56 H 96 10/24/16 12:43 10/24/16 12:43 10/24/16 12:43 10/24/16 12:43 10/24/16 12:43 Intake & Output 10/23/16 10/24/16 10/25/16 06:59 06:59 06:59 Intake Total 232 1940 Output Total 0 Balance 232 1940 Weight 142.3 kg 143 kg General appearance: PRESENT: no acute distress Head exam: PRESENT: normocephalic Neck exam: ABSENT: carotid bruit, full ROM, JVD, lymphadenopathy, meningismus, tenderness, thyromegaly, tracheal deviation, tracheostomy, other Respiratory exam: ABSENT: accessory muscle use, chest wall tenderness, clear to auscultation nelson, crackles, decreased breath sounds, prolonged expiratory phas, rales, retraction, rhonchi, stridor, symmetrical, tachypnea, unlabored, wheezes , other Cardiovascular exam: PRESENT: RRR, +S1, +S2 GI/Abdominal exam: PRESENT: normal bowel sounds, soft. ABSENT: tenderness Extremities exam: PRESENT: pedal edema Musculoskeletal exam: PRESENT: ambulatory Neurological exam: PRESENT: alert, awake, oriented to person, oriented to place , oriented to time, oriented to situation Psychiatric exam: PRESENT: anxious Results Laboratory Results: 10/24/16 05:08 10/24/16 05:08 10/24/16 10/24/16 05:08 05:08 WBC 8.0 RBC 3.37 L Hgb 10.6 L Hct 30.7 L MCV 91 MCH 31.4 MCHC 34.4 RDW 13.9 Plt Count 175 Seg Neutrophils % 59.8 Lymphocytes % 31.1 Monocytes % 7.4 Eosinophils % 1.2 Basophils % 0.5 Absolute Neutrophils 4.8 Absolute Lymphocytes 2.5 Absolute Monocytes 0.6 Absolute Eosinophils 0.1 Absolute Basophils 0.0 Sodium 135.1 L Potassium 4.1 Chloride 97 L Carbon Dioxide 26 Anion Gap 12 BUN 56 H Creatinine 6.13 H Est GFR ( Amer) 11 L Est GFR (Non-Af Amer) 10 L Glucose 181 H Calcium 8.2 L 10/22/16 10/22/16 10/22/16 18:40 21:00 21:00 Creatine Kinase 45 L CK-MB (CK-2) 1.16 Troponin I 0.021 0.018 NT-Pro-B Natriuret Pep 10/23/16 10/23/16 10/23/16 03:11 03:11 09:14 Creatine Kinase 39 L CK-MB (CK-2) 0.91 1.04 Troponin I 0.014 0.012 NT-Pro-B Natriuret Pep 2480 H Impressions: Chest CT 10/22/16 00:00 IMPRESSION: The left lower lobe posterior mass and atelectasis appear unchanged compared with the January 2016 examination. Persistent basilar pleural thickening is present, also stable appearing. Minimal chronic appearing subsegmental atelectasis is present in the medial basilar segment of the right lower lobe. No acute consolidation or pleural effusion. Chest X-Ray 10/22/16 14:49 IMPRESSION: No significant interval change. No acute changes. Other findings as noted above Lung Scan-VQ NM 10/22/16 17:38 IMPRESSION: No ventilation-perfusion mismatches. Plan Time Spent: Greater than 30 Minutes - Discussed with the patient and the and follow outpatients in 1 week and follow with the cardiology and follow with the nephrology patient was also given some pain medication and use only as needed
== END 2016-10-24 13:00 | disposition home or self-care (01) ==
LOC: ER 14:15 → EH 17:49 → INTOOBSV 17:49 → 3S 10-23 02:21
PROVIDERS: ADMIT Family Medicine; ATTEND Family Medicine
DX: R07.9 Chest pain, unspecified (principal); R06.02 Shortness of breath; J44.9 Chronic obstructive pulmonary disease, unspecified; I13.2 Hypertensive heart and chronic kidney disease with heart failure and with stage 5 chronic kidney disease, or end stage renal disease; E11.22 Type 2 diabetes mellitus with diabetic chronic kidney disease; N18.6 End stage renal disease; I50.9 Heart failure, unspecified; D63.1 Anemia in chronic kidney disease; Z99.2 Dependence on renal dialysis; N25.81 Secondary hyperparathyroidism of renal origin; I48.91 Unspecified atrial fibrillation; I25.10 Atherosclerotic heart disease of native coronary artery without angina pectoris; G47.30 Sleep apnea, unspecified; E66.9 Obesity, unspecified; Z68.41 Body mass index [BMI] 40.0-44.9, adult; Z79.4 Long term (current) use of insulin; Z79.899 Other long term (current) drug therapy; Z88.8 Allergy status to other drugs, medicaments and biological substances
CPT/HCPCS: 93005; 99285; 36415 ×3; 87040; 87086; 82553 ×2; 82962 ×2; 82550 ×2; 83735; 85025 ×3; 80048 ×2; 80053; 81001; 84484 ×2; 83880; 93306; 71020; 78582; 71250; 93010; 97162; G0378 ×2; A9540; A9567; A9270 ×14; J1644; J3490; J1650 ×2; Q9969; G8978; G8979; G8980; J1815

== ENCOUNTER 2016-11-18 13:12 | Emergency (ER) | payer MEDICARE, MEDICAID ==
[2016-11-18 13:50] LABS: ABSOLUTE LYMPHOCYTES (AUTO) 1.3 10^3/uL (0.5-4.7); ABSOLUTE MONOCYTES (AUTO) 0.4 10^3/uL (0.1-1.4); ABSOLUTE NEUT (AUTO) 3.5 10^3/uL (1.7-8.2); BASOPHILS % (AUTO) 0.8 % (0-2); EOSINOPHILS % (AUTO) 0.8 % (0-6); HEMATOCRIT 30.6 % (37.9-51.0); HEMOGLOBIN 10.6 g/dL (13.5-17.0); HGB HCT DIFFERENCE 1.2; LYMPHOCYTES % (AUTO) 24.7 % (13-45); MEAN CORPUSCULAR HEMOGLOBIN 31.9 pg (27.0-33.4); MEAN CORPUSCULAR HGB CONC 34.6 g/dL (32.0-36.0); MEAN CORPUSCULAR VOLUME 92 fl (80-97); MONOCYTES % (AUTO) 7.9 % (3-13); RED BLOOD COUNT 3.33 10^6/uL (4.35-5.55); RED CELL DISTRIBUTION WIDTH 13.9 % (11.5-14.0); SEGMENTED NEUTROPHILS % (AUTO) 65.8 % (42-78); WHITE BLOOD COUNT 5.3 10^3/uL (4.0-10.5)
[2016-11-18] MEDS ORDERED: INSULIN REG, HUMAN 100 UNIT/ML 3 ML VIAL (PYX) IV ONE ×2 (14:21→15:37)
--- NOTE | 2016-11-18 14:21 | ER Document Report ---
ED General - General Chief Complaint: High Blood Sugar Stated Complaint: WEAKNESS Mode of Arrival: Medic Information source: Patient Notes: 56-year-old male dialysis patient history of A. fib diabetic who takes NovoLog and Lantus presents with complaints of high blood sugar. Patient notes this home health nurse checked his blood pressure noted to be 80s over 40s cold EMS. When EMS arrived the patient's blood pressure was actually fine but the blood sugar was elevated. Patient notes he did not take his insulin TRAVEL OUTSIDE OF THE [place] IN LAST 30 DAYS: No - HPI Onset: Just prior to arrival Onset/Duration: Sudden Quality of pain: No pain Severity: None Pain Level: Denies Associated symptoms: None Exacerbated by: Denies Relieved by: Denies Similar symptoms previously: Yes Recently seen / treated by doctor: Yes - Related Data Allergies/Adverse Reactions: cayenne pepper fruits Allergy (Intermediate, Verified 10/23/16 02:54) Past Medical History - Social History Smoking Status: Never Smoker Cigarette use (# per day): No Chew tobacco use (# tins/day): No Smoking Education Provided: No Family History: Reviewed & Not Pertinent - Past Medical History Cardiac Medical History: Reports: Hx Atrial Fibrillation, Hx Congestive Heart Failure, Hx Coronary Artery Disease, Hx Hypercholesterolemia, Hx Hypertension Denies: Hx Heart Attack Pulmonary Medical History: Reports: Hx Pneumonia Denies: Hx Asthma, Hx Bronchitis, Hx COPD Neurological Medical History: Denies: Hx Cerebrovascular Accident, Hx Seizures Endocrine Medical History: Reports: Hx Diabetes Mellitus Type 2 Renal/ Medical History: Reports: Hx End Stage Renal Disease. Denies: Hx Peritoneal Dialysis - HEMODIALYSIS Musculoskeltal Medical History: Denies Hx Arthritis Psychiatric Medical History: Reports: Hx Depression Past Surgical History: Reports: Hx Cardiac Catheterization, Hx Cardiac Surgery - STENTS, Hx Orthopedic Surgery - FEET, SHOULDER, Hx Vascular Surgery - fistula left arm - Immunizations Hx Diphtheria, Pertussis, Tetanus Vaccination: Yes Hx Pneumococcal Vaccination: 09/14/14 Review of Systems - Review of Systems Notes: REVIEW OF SYSTEMS: CONSTITUTIONAL : Denies fever, chills, or sweats. Denies recent illness. EENT: Denies eye, ear, throat, or mouth pain or symptoms. Denies nasal or sinus congestion or discharge. Denies throat, tongue, or mouth swelling or difficulty swallowing. CARDIOVASCULAR: Denies chest pain. Denies palpitations or racing or irregular heart beat. Denies ankle edema. RESPIRATORY: Denies cough, cold, or chest congestion. Denies shortness of breath, difficulty breathing, or wheezing. GASTROINTESTINAL: Denies abdominal pain or distention. Denies nausea, vomiting , or diarrhea. Denies blood in vomitus, stools, or per rectum. Denies black, tarry stools. Denies constipation. GENITOURINARY: Denies difficulty urinating, painful urination, burning, frequency, blood in urine, or discharge. MUSCULOSKELETAL: Denies back or neck pain or stiffness. Denies joint pain or swelling. SKIN: Denies rash, lesions or sores. HEMATOLOGIC : Denies easy bruising or bleeding. LYMPHATIC: Denies swollen, enlarged glands. NEUROLOGICAL: Denies confusion or altered mental status. Denies passing out or loss of consciousness. Denies dizziness or lightheadedness. Denies headache. Denies weakness or paralysis or loss of use of either side. Denies problems with gait or speech. Denies sensory loss, numbness, or tingling. Denies seizures. PSYCHIATRIC: Denies anxiety or stress. Denies depression, suicidal ideation, or homicidal ideation. ALL OTHER SYSTEMS REVIEWED AND NEGATIVE. Dictation was performed using [employer] voice recognition software PHYSICAL EXAMINATION: GENERAL: Well-appearing, well-nourished and in no acute distress. HEAD: Atraumatic, normocephalic. EYES: Pupils equal round and reactive to light, extraocular movements intact, sclera anicteric, conjunctiva are normal. ENT: Nares patent, oropharynx clear without exudates. Moist mucous membranes. NECK: Normal range of motion, supple without lymphadenopathy LUNGS: Breath sounds clear to auscultation bilaterally and equal. No wheezes rales or rhonchi. HEART: Regular rate and rhythm without murmurs ABDOMEN: Soft, nontender, nondistended abdomen. No guarding, no rebound. No masses appreciated. Musculoskeletal: Normal range of motion, no pitting or edema. No cyanosis. NEUROLOGICAL: Cranial nerves grossly intact. Normal speech, normal gait. Normal sensory, motor exams PSYCH: Normal mood, normal affect. SKIN: Analysis access noted Warm, Dry, normal turgor, no rashes or lesions noted. Physical Exam - Vital signs Vitals: Pulse Ox 96 11/18/16 13:29 Course - Re-evaluation Re-evalutation: 11/18/16 14:29 Patient is in no distress, he is noted to be hyperglycemic however I do not expect any diabetic ketoacidosis given how well he looks. He was already given 1 L of fluid total, I will not over hydrate him. Patient ordered insulin 11/18/16 16:50 Patient is alert oriented, his blood sugar is now to the mid 300s, he wishes to be discharged. At his request I will discharge the patient with understanding to return immediately if there are any other concerns After performing a Medical Screening Examination, I estimate there is LOW risk for ACUTE CORONARY SYNDROME, RESPIRATORY FAILURE, SEPSIS OR MENINGITIS, thus I consider the discharge disposition reasonable. The patient and I have discussed the diagnosis and risks, and we agree with discharging home with close follow- up. We also discussed returning to the Emergency Department immediately if new or worsening symptoms occur. We have discussed the symptoms which are most concerning (e.g., changing or worsening pain, trouble swallowing or breathing, neck stiffness, fever) that necessitate immediate return. - Vital Signs Vital signs: Temp Pulse Resp BP Pulse Ox 98.3 F 70 16 150/70 H 97 11/18/16 13:44 11/18/16 13:44 11/18/16 13:44 11/18/16 13:44 11/18/16 15:00 - Laboratory Result Diagrams: 11/18/16 13:32 11/18/16 14:30 Laboratory results interpreted by me: 11/18/16 11/18/16 11/18/16 13:32 14:30 15:36 RBC 3.33 L Hgb 10.6 L Hct 30.6 L Plt Count 139 L Sodium 133.0 L Chloride 97 L BUN 39 H Creatinine 4.09 H Est GFR ( Amer) 18 L Est GFR (Non-Af Amer) 15 L Glucose 570 H* POC Glucose 479 H* AST 15 L ALT 20 L Total Protein 5.9 L Albumin 3.4 L Critical Care Note - Critical Care Note Total time excluding time spent on procedures (mins): 31 Comments: 31 minutes of critical care time spent in direct contact evaluating and reevaluating the patient, treating symptoms, reviewing labs and studies and speaking with family and consultants excluding any procedures Discharge - Discharge Clinical Impression: Hyperglycemia Condition: Stable Disposition: HOME, SELF-CARE Instructions: Hyperglycemia ([facility]) Referrals: BOND,SWETANG, MD [Primary Care Provider] - Follow up tomorrow
[2016-11-18 14:43] LABS: VENOUS BLOOD BASE EXCESS -3.4 mmol/L; VENOUS BLOOD HCO3 22.1 mmol/L (20-32); VENOUS BLOOD PCO2 41.7 mmHg (35-63); VENOUS BLOOD PH 7.34 (7.30-7.42)
[2016-11-18 15:03] LABS: ALANINE AMINOTRANSFERASE 20 U/L (21-72); ALBUMIN 3.4 g/dL (3.5-5.0); ALKALINE PHOSPHATASE 88 U/L (38-126); ANION GAP 12 (5-19); ASPARTATE AMINO TRANSFERASE 15 U/L (17-59); BILIRUBIN,TOTAL 0.8 mg/dL (0.2-1.3); BLOOD UREA NITROGEN 39 mg/dL (7-20); CALCIUM 8.4 mg/dL (8.4-10.2); CARBON DIOXIDE 24 mmol/L (22-30); CHLORIDE 97 mmol/L (98-107); CREATININE RESULT 4.09 mg/dL (0.52-1.25); TOTAL PROTEIN 5.9 g/dL (6.3-8.2)
[2016-11-18 15:12] LABS: GLUCOSE 570 mg/dL (75-110)
[2016-11-18 18:09] VITALS: BP 134/57
== END 2016-11-18 17:36 | disposition home or self-care (01) ==
LOC: ER 13:12
DX: E11.65 Type 2 diabetes mellitus with hyperglycemia (principal); R73.9 Hyperglycemia, unspecified; I48.91 Unspecified atrial fibrillation; Z79.4 Long term (current) use of insulin
CPT/HCPCS: 99285; 36415; 82962; 85025; 80053; 82803; A9270; J1815

== ENCOUNTER → 2017-02-19 | Outpatient (CLI) | payer MEDICARE, MEDICAID ==
--- NOTE | 2017-02-19 18:28 | RADIOLOGY REPORT (SQ) ---
EXAM DESCRIPTION: CERV SP 4 OR 5 VIEWS COMPLETED DATE/TIME: 02/19/2017 6:11 pm REASON FOR STUDY: Cervicalgia, Headache M54.2 CERVICALGIA R51 HEADACHE COMPARISON: None. NUMBER OF VIEWS: Five views. TECHNIQUE: AP, lateral, obliques and odontoid radiographic images acquired of the cervical spine. LIMITATIONS: None. FINDINGS: MINERALIZATION: Normal. ALIGNMENT: Anatomic. VERTEBRAE: Vertebral bodies of normal height. DISCS: No significant osteophytes or sclerosis. Disc height maintained. FORAMINA: No osteophytes or foraminal narrowing. LATERAL AND POSTERIOR ELEMENTS: Facets, lateral masses and spinous processes without significant find ings. HARDWARE: None in the spine. SOFT TISSUES: No masses or calcifications. Lung apices clear. OTHER: No other significant finding. IMPRESSION: NO SIGNIFICANT RADIOGRAPHIC FINDING IN THE CERVICAL SPINE. TECHNICAL DOCUMENTATION: JOB ID: [id number] [employer]- All Rights Reserved
--- NOTE | 2017-02-19 18:30 | RADIOLOGY REPORT (SQ) ---
EXAM DESCRIPTION: CT HEAD WITHOUT COMPLETED DATE/TIME: 02/19/2017 6:15 pm REASON FOR STUDY: Cervicalgia, Headache M54.2 CERVICALGIA R51 HEADACHE COMPARISON: None. TECHNIQUE: Axial images acquired through the brain without intravenous contrast. Images reviewed wi th bone, brain and subdural windows. Images stored on PACS. All CT scanners at this facility use dose modulation, iterative reconstruction, and/or weight based d osing when appropriate to reduce radiation dose to as low as reasonably achievable (ALARA). [facility]: Dose Right [facility]: CareDose [facility]: Dose Right [facility]: Teradose 4D [facility]: Chat Sports RADIATION DOSE: 64.61 mGy. LIMITATIONS: None. FINDINGS: VENTRICLES: Normal size and contour. CEREBRUM: No masses. No hemorrhage. No midline shift. Normal chavez/white matter differentiation. N o evidence for acute infarction. CEREBELLUM: No masses. No hemorrhage. No alteration of density. No evidence for acute infarction. EXTRAAXIAL SPACES: No fluid collections. No masses. ORBITS AND GLOBE: The left optic globe is dense and smaller than the right. CALVARIUM: No fracture. PARANASAL SINUSES: No fluid or mucosal thickening. SOFT TISSUES: No mass or hematoma. OTHER: No other significant finding. IMPRESSION: Prior injury or procedure to the left optic globe with no acute intracranial pathology. TECHNICAL DOCUMENTATION: JOB ID: [id number] Quality ID # [id number]: Final reports with documentation of one or more dose reduction techniques (e.g., Au tomated exposure control, adjustment of the mA and/or kV according to patient size, use of iterative reconstruction technique) 2010 [employer]- All Rights Reserved
== END ==
LOC: RAD 17:25
PROVIDERS: ATTEND Family Medicine
DX: M54.2 Cervicalgia (principal); R51 Headache
CPT/HCPCS: 70450; 72050

== ENCOUNTER 2017-02-23 16:48 | Emergency (ER) | payer MEDICARE, MEDICAID ==
--- NOTE | 2017-02-23 17:39 | ER Document Report ---
ED Neck/Back Problem - General Chief Complaint: Low Back Pain Stated Complaint: BACK PAIN Time Seen by Provider: 02/23/17 17:21 Mode of Arrival: Wheelchair Information source: Patient Notes: 56-year-old male presents to ED for neck pain radiating to low back. He states he was at dialysis on Thursday when he tried to sit on the toilet and the toilet moved it was not attached properly and he fell on the floor. States he had pain at that time he was seen by his primary doctor Dr. Feldman the next day and had a CT of the head and x-ray of the neck and Dr. Feldman gave him a prescription for muscle relaxers. He states he has not stopped having pain since he fell on Thursday and today when he tried to get up he was not able to transfer from the chair to his bed without assistance. He states today when he went to dialysis she put the chair up fast and he just about when off the chair from the pain. He denies any previous history of back problems. 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 TRAVEL OUTSIDE OF THE [place] IN LAST 30 DAYS: No - HPI Patient complains to provider of: Neck - States it radiates all the way down to his tailbone Onset: Other - Thursday Where: Public place - Dialysis Onset: Sudden Quality of pain: Sharp, Throbbing Severity: Moderate Pain Level: 4 Context: Fall/near-fall Recent injury: Yes Associated symptoms: Other - Radiating to lower back, difficulty to move due to pain Exacerbated by: Movement of neck, Movement of trunk Relieved by: Nothing Similar symptoms previously: Yes Recently seen / treated by doctor: Yes - Related Data Allergies/Adverse Reactions: cayenne pepper fruits Allergy (Intermediate, Verified 10/23/16 02:54) Past Medical History - General Information source: Patient - Social History Smoking Status: Never Smoker Cigarette use (# per day): No Chew tobacco use (# tins/day): No Smoking Education Provided: No Frequency of alcohol use: None Drug Abuse: None Lives with: Family Family History: Arthritis, CAD, COPD, CVA, DM, Hyperlipidemia, Hypertension, Malignancy, Thyroid Disfunction - Past Medical History Cardiac Medical History: Reports: Hx Atrial Fibrillation, Hx Congestive Heart Failure, Hx Coronary Artery Disease, Hx Hypercholesterolemia, Hx Hypertension Pulmonary Medical History: Reports: Hx Pneumonia EENT Medical History: Reports: None Neurological Medical History: Reports: Hx Cerebrovascular Accident - TIA Endocrine Medical History: Reports: Hx Diabetes Mellitus Type 2, Hx Hypothyroidism Renal/ Medical History: Reports: Hx End Stage Renal Disease, Hx Hemodialysis Malignancy Medical History: Reports None GI Medical History: Reports: Hx Gastroesophageal Reflux Disease, Hx Colonoscopy , Hx Endoscopy Musculoskeltal Medical History: Reports Hx Arthritis, Reports Hx Musculoskeletal Trauma Psychiatric Medical History: Reports: Hx Anxiety, Hx Depression Traumatic Medical History: Reports: Hx Fractures - Feet Infectious Medical History: Reports: None Past Surgical History: Reports: Hx Cardiac Catheterization, Hx Cardiac Surgery - STENTS, Hx Orthopedic Surgery - FEET, SHOULDER, Hx Vascular Surgery - fistula left arm, Other - Many eye surgeries - Immunizations Immunizations up to date: Yes Hx Diphtheria, Pertussis, Tetanus Vaccination: Yes Hx Pneumococcal Vaccination: 09/14/14 Review of Systems - Review of Systems Constitutional: No symptoms reported EENT: No symptoms reported Cardiovascular: No symptoms reported Respiratory: No symptoms reported Gastrointestinal: No symptoms reported Genitourinary: No symptoms reported Male Genitourinary: No symptoms reported Musculoskeletal: Muscle pain, Neck pain - Radiating down to his lower back Skin: No symptoms reported Hematologic/Lymphatic: No symptoms reported Neurological/Psychological: No symptoms reported -: Yes All other systems reviewed and negative Physical Exam - Vital signs Vitals: Temp Pulse Resp BP Pulse Ox 98.5 F 72 22 H 101/47 L 96 02/23/17 16:56 02/23/17 16:56 02/23/17 16:56 02/23/17 16:56 02/23/17 16:56 Interpretation: Normal - General General appearance: Appears well, Alert - HEENT Head: Normocephalic, Atraumatic Eyes: Normal Pupils: PERRL - Respiratory Respiratory status: No respiratory distress Chest status: Nontender Breath sounds: Normal Chest palpation: Normal - Cardiovascular Rhythm: Regular Heart sounds: Normal auscultation Murmur: No - Abdominal Inspection: Normal Distension: No distension Bowel sounds: Normal Tenderness: Nontender Organomegaly: No organomegaly - Back Back: Normal, Tender - Muscle pain from neck down to buttocks no bruises no swelling. No signs of cauda equina. No loss of control of bowel, on dialysis, Vertebra tenderness - Neck. No: Deformity/step-off, CVA tenderness, Scars, Scoliosis, Wounds - Extremities General upper extremity: Normal inspection, Nontender, Normal color, Normal ROM , Normal temperature General lower extremity: Normal inspection, Nontender, Normal color, Normal ROM , Normal temperature, Normal weight bearing. No: Gabby's sign - Neurological Neuro grossly intact: Yes Cognition: Normal Orientation: AAOx4 [place] Coma Scale Eye Opening: Spontaneous [place] Coma Scale Verbal: Oriented [place] Coma Scale Motor: Obeys Commands [place] Coma Scale Total: 15 Speech: Normal Motor strength normal: LUE, RUE, LLE, RLE Sensory: Normal - Psychological Associated symptoms: Normal affect, Normal mood - Skin Skin Temperature: Warm Skin Moisture: Dry Skin Color: Normal Course - Re-evaluation Re-evalutation: 02/23/17 19:[address] Bautista and he recommended CT of the neck for his continued neck pain is radiating down his back. CT was negative discussed the CT results with patient and instructed him to follow-up with Dr. Feldman for his pain. says he takes Ultram for his chronic foot pain. Instructed patient to take the Ultram as prescribed for his back pain also and use the muscle relaxers Dr. Feldman recently gave him. - Vital Signs Vital signs: Temp Pulse Resp BP Pulse Ox 98.5 F 72 22 H 101/47 L 96 02/23/17 16:56 02/23/17 16:56 02/23/17 16:56 02/23/17 16:56 02/23/17 16:56 - Diagnostic Test Radiology reviewed: Image reviewed, Reports reviewed Discharge - Discharge Clinical Impression: Neck pain radiating to lower back Fall Qualifiers: Encounter type: initial encounter Qualified Code(s): W19.XXXA - Unspecified fall, initial encounter Condition: Stable Disposition: HOME, SELF-CARE Additional Instructions: NECK INJURY (CERVICAL STRAIN): You have a neck strain. This is an injury to the muscles and ligaments in the neck. There is no evidence of a fracture of the neck bones. Also, no injury to the spinal cord or nerve roots was detected. Usually, stiffness and pain INCREASE for the first 24-48 hours after the injury. The pain will gradually resolve and the neck will become more mobile. Most patients are back at work or school within a few days. Typically, complete healing takes about two or three weeks. The usual initial treatment is rest and cold packs. A neck collar may be placed to keep the muscles of the neck at rest. Antiinflammatory and muscle relaxing medication are often used to reduce the spasm and irritation. You should call the doctor, or go to the hospital, if you develop numbness or weakness in any extremity, problems with your bladder or bowel, or pain radiating down the arms. MUSCLE STRAIN: You have strained a muscle -- torn the fibers within the muscle. This often occurs with strenuous exertion, or during an injury that suddenly stretches the muscle. The seriousness of a strain varies. Some strains heal within days, others cause problems for months. X-rays cannot show a muscle strain. X-rays are taken only if symptoms suggest that a fracture could be present. The usual treatment of a muscle strain is rest and ice packs. Sometimes, a sling, splint, or crutches may be necessary to rest the muscle. The muscle can be used again once pain subsides. Severe strains require a special exercise and stretching program to prevent permanent stiffness and disability. Your doctor will advise you if this will be necessary. Call the doctor immediately if pain or swelling becomes severe, or if numbness or discoloration develop. USE OF TYLENOL (ACETAMINOPHEN): Acetaminophen may be taken for pain relief or fever control. It's much safer than aspirin, offering a wider range of "safe" dosages. It is safe during . Some brand names are Tylenol, Panadol, Datril, Anacin 3, Tempra, and Liquiprin. Acetaminophen can be repeated every four hours. The following are maximum recommended dosages: WEIGHT Dose Drops Elixir Chewable( 80mg) (LBS.) drprs=droppers tsp=teaspoon 6 40 mg 0.4 ml (1/2) 6-11 80 mg 0.8 ml (full) tsp 1 tab 12-16 120 mg 1 1/2 drprs 3/4 tsp 1 1/2 tabs 17-23 160 mg 2 drprs 1 tsp 2 tabs 24-30 240 mg 3 drprs 1 1/2 tsp 3 tabs 30-35 320 mg 2 tsp 4 tabs 36-41 360 mg 2 1/4 tsp 4 1/2 tabs 42-47 400 mg 2 1/2 tsp 5 tabs 48-53 480 mg 3 tsp 6 tabs 54-59 520 mg 3 1/4 tsp 6 1/2 tabs 60-64 560 mg 3 1/2 tsp 7 tabs 65-70 600 mg 3 3/4 tsp 7 1/2 tabs 71-76 640 mg 4 tsp 8 tabs 77-82 720 mg 4 1/2 tsp 9 tabs 83-88 800 mg 5 tsp 10 tabs >89 pounds or adults 650 mg to 900 mg Acetaminophen can be repeated every four hours. Maximum dose not to exceed 4000 mg a day. These maximum recommended dosages are slightly higher than the dosages written on the product container, but these dosages are very safe and below the toxic dosage for acetaminophen. ICE PACKS: Apply ice packs frequently against the painful area. Many different schedules are recommended, such as "20 minutes on, 20 minutes off" or "one hour ice, two hours rest." If you need to work, you may need to go longer between ice treatments. You should plan to have the area ice packed AT LEAST one fourth of the time. The ice should be applied over the wrap, tape, or splint, or over a layer of cloth -- not directly against the skin. Some ice bags have a built-in cloth and can be put directly on the skin. WARM PACKS: After approximately two days, apply gentle heat (such as a heating pad or hot water bottle) for about 20 to 30 minutes about every two hours -- at least four times daily. Warmth and elevation will help you make a more rapid recovery , and will ease the pain considerably. Do not use HOT heat, and never apply heat for longer than 30 minutes. The continuous heat can invisibly damage skin and muscles -- even when no burn is seen on the surface. Damaged muscles can make you MORE sore. FOLLOW-UP CARE: If you have been referred to a physician for follow-up care, call the physician s office for an appointment as you were instructed or within the next two days. If you experience worsening or a significant change in your symptoms, notify the physician immediately or return to the Emergency Department at any time for re-evaluation.
--- NOTE | 2017-02-23 19:01 | RADIOLOGY REPORT (SQ) ---
EXAM DESCRIPTION: CT CERVICAL SPINE WITHOUT COMPLETED DATE/TIME: 02/23/2017 6:44 pm REASON FOR STUDY: pain and injury COMPARISON: None. TECHNIQUE: Axial images acquired through the cervical spine without intravenous contrast. Images re viewed with lung, soft tissue and bone windows. Reconstructed coronal and sagittal MPR images review ed. Images stored on PACS. All CT scanners at this facility use dose modulation, iterative reconstruction, and/or weight based d osing when appropriate to reduce radiation dose to as low as reasonably achievable (ALARA). [facility]: Dose Right [facility]: CareDose [facility]: Dose Right [facility]: Teradose 4D [facility]: [employer] (previously [employer]) RADIATION DOSE: 35.28 mGy. LIMITATIONS: None. FINDINGS: ALIGNMENT: Anatomic. MINERALIZATION: Normal. VERTEBRAL BODIES: No fractures or dislocation. DISCS: No significant disc disease. FACETS, LATERAL MASSES, POSTERIOR ELEMENTS: No fractures. No dislocation. No acute findings. HARDWARE: None in the spine. VISUALIZED RIBS: No fractures. LUNG APICES AND SOFT TISSUES: No significant or acute findings. OTHER: No other significant finding. IMPRESSION: NO ACUTE FINDINGS IN THE CERVICAL SPINE. TECHNICAL DOCUMENTATION: JOB ID: [id number] Quality ID # [id number]: Final reports with documentation of one or more dose reduction techniques (e.g., Au tomated exposure control, adjustment of the mA and/or kV according to patient size, use of iterative reconstruction technique) 2010 [employer]- All Rights Reserved
[2017-02-23 20:19] VITALS: BP 128/59
== END 2017-02-23 20:21 | disposition home or self-care (01) ==
LOC: ER 16:48
DX: M54.2 Cervicalgia (principal); M54.5 Low back pain; W18.11XA Fall from or off toilet without subsequent striking against object, initial encounter; Y93.89 Activity, other specified; Y92.538 Other ambulatory health services establishments as the place of occurrence of the external cause; I12.0 Hypertensive chronic kidney disease with stage 5 chronic kidney disease or end stage renal disease; E11.22 Type 2 diabetes mellitus with diabetic chronic kidney disease; N18.6 End stage renal disease; Z99.2 Dependence on renal dialysis; I25.10 Atherosclerotic heart disease of native coronary artery without angina pectoris; M08.20 Juvenile rheumatoid arthritis with systemic onset, unspecified site; M79.673 Pain in unspecified foot; G89.29 Other chronic pain; Z79.891 Long term (current) use of opiate analgesic; Z91.018 Allergy to other foods; Z98.61 Coronary angioplasty status; Z86.73 Personal history of transient ischemic attack (TIA), and cerebral infarction without residual deficits
CPT/HCPCS: 72125; 99283

== ENCOUNTER 2017-04-22 11:51 | Inpatient (IN) | payer MEDICARE, MEDICAID ==
[2017-04-22] MEDS ORDERED: ASPIRIN 81 MG TABLET, CHEWABLE PO ONE (12:19)
--- NOTE | 2017-04-22 12:19 | ER Document Report ---
ED Respiratory Problem - General Mode of Arrival: Medic Information source: Patient TRAVEL OUTSIDE OF THE [place] IN LAST 30 DAYS: No <ABISAI VELÁSQUEZ - Last Filed: 04/22/17 14:57> <JAZ DUARTE - Last Filed: 04/22/17 17:19> - General Stated Complaint: RESPIRATORY DISTRESS Time Seen by Provider: 04/22/17 12:03 Notes: Patient is a 57 year old male who presents to the ED with complaints of chest pain, dypsnea, back pain, dizziness, and feeling weak. Patient states he was unable to walk due to being dizzy and weak. Patients reports a decreased appetite x3 days. Patient is a dialysis patient and receives his dialysis Thursday, Thursday and Thursday. Patient adds that he has a cough with some sputum production. Patient has a healing abscess on his right thigh that he had incised and drained at [facility], he finished his antibiotics and changes his dressing 2x per day. Patient is on 2.5L at home. Director Music: Dr. Hanley (ABISAI VELÁSQUEZ) - Related Data Allergies/Adverse Reactions: cayenne pepper fruits Allergy (Intermediate, Verified 10/23/16 02:54) Home Medications: Current Home Medications Cyclobenzaprine HCl [Flexeril 5 mg Tablet] 5 mg PO BIDP PRN 04/22/17 [History] Insulin Glargine,Hum.rec.anlog [Lantus Solostar] 50 units SUBCUT QHS 04/22/17 [ History] Pregabalin [Lyrica] 200 mg PO BID 04/22/17 [History] Tramadol HCl [Ultram 50 mg Tablet] 50 mg PO Q12HP PRN 04/22/17 [History] Past Medical History - General Information source: Patient - Social History Smoking Status: Never Smoker Chew tobacco use (# tins/day): No Smoking Education Provided: No Frequency of alcohol use: None Family History: Arthritis, CAD, COPD, CVA, DM, Hyperlipidemia, Hypertension, Malignancy, Thyroid Disfunction - Past Medical History Cardiac Medical History: Reports: Hx Atrial Fibrillation, Hx Congestive Heart Failure, Hx Coronary Artery Disease, Hx Hypercholesterolemia, Hx Hypertension Denies: Hx Heart Attack Pulmonary Medical History: Reports: Hx COPD, Hx Pneumonia Denies: Hx Asthma, Hx Bronchitis EENT Medical History: Reports: 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 Denies: Hx Seizures Endocrine Medical History: Reports: Hx Diabetes Mellitus Type 2, Hx Hypothyroidism Renal/ Medical History: Reports: Hx End Stage Renal Disease, Hx Hemodialysis. Denies: Hx Peritoneal Dialysis GI Medical History: Reports: Hx Gastroesophageal Reflux Disease, Hx Colonoscopy , Hx Endoscopy Musculoskeltal Medical History: Reports Hx Arthritis, Reports Hx Musculoskeletal Trauma Psychiatric Medical History: Reports: Hx Anxiety, Hx Depression Traumatic Medical History: Reports: Hx Fractures - Feet Past Surgical History: Reports: Hx Cardiac Catheterization, Hx Cardiac Surgery - STENTS, Hx Orthopedic Surgery - FEET, SHOULDER, Hx Vascular Surgery - fistula left arm, Other - Many eye surgeries - Immunizations Immunizations up to date: Yes Hx Diphtheria, Pertussis, Tetanus Vaccination: Yes Hx Pneumococcal Vaccination: 09/14/14 <ABISAI VELÁSQUEZ - Last Filed: 04/22/17 14:57> Review of Systems - Review of Systems Constitutional: See HPI, Weakness EENT: No symptoms reported Cardiovascular: See HPI, Chest pain, Dizziness Respiratory: See HPI, Cough, Short of breath, Sputum Gastrointestinal: See HPI, Poor appetite Genitourinary: No symptoms reported Male Genitourinary: No symptoms reported Musculoskeletal: See HPI, Back pain Skin: No symptoms reported Hematologic/Lymphatic: No symptoms reported Neurological/Psychological: No symptoms reported <ABISAI VELÁSQUEZ - Last Filed: 04/22/17 14:57> Physical Exam <ABISAI VELÁSQUEZ - Last Filed: 04/22/17 14:57> <JAZ DUARTE - Last Filed: 04/22/17 17:19> - Vital signs Vitals: Pulse Ox 100 04/22/17 12:00 - Notes Notes: GENERAL: Alert, interacts well. No acute distress. Obese HEAD: Normocephalic, atraumatic. EYES: Pupils equal, round, and reactive to light. Extraocular movements intact. ENT: Oral mucosa moist, tongue midline. NECK: Full range of motion. Supple. Trachea midline. LUNGS: Clear to auscultation bilaterally, no wheezes, rales, or rhonchi. No respiratory distress. HEART: Regular rate and rhythm. No murmurs, gallops, or rubs. ABDOMEN: Soft, non-tender. Obese. Bowel sounds present in all 4 quadrants. EXTREMITIES: Moves all 4 extremities spontaneously. No edema, radial pulses 2/4 bilaterally. No cyanosis. NEUROLOGICAL: Alert and oriented x3. Normal speech. PSYCH: Normal affect, normal mood. SKIN: Warm, dry, normal turgor. Previously incised and drained abscess in right upper inner thigh, packing in place that is somewhat crusted, minimal mild surrounding erythema that appears to be from dressing that was pulled back, does appear to track upwards, no lymphangitic streaking (ABISAI VELÁSQUEZ) Course - Laboratory Result Diagrams: 04/22/17 12:10 04/22/17 12:10 - Consults Dr. Feldman Time consulted: 14:04 Consulted provider: will see as inpatient Dr. Hanley Time consulted: 14:28 <ABISAI VELÁSQUEZ - Last Filed: 04/22/17 14:57> - Laboratory Result Diagrams: 04/22/17 12:10 04/22/17 12:10 <JAZ DUARTE - Last Filed: 04/22/17 17:19> - Re-evaluation Re-evalutation: 04/22/17 17:18 CBC shows leukocytosis of 12.5, hemoglobin low at 8.2 likely related to his chronic renal failure but uncertain, CMP shows end-stage renal disease on dialysis and other chronic changes, troponin is negative but detectable likely related to end-stage renal disease having missed dialysis, proBNP somewhat elevated at 2890 again likely related to renal disease having missed dialysis, chest x-ray shows limited left lower lobe pneumonia but no vascular congestion. Antibiotics started in the form of cefepime and Levaquin. Discussed with Dr. Feldman who agrees to admit the patient, request that Dr. Hanley be consulted, discussed with Dr. Hanley who agrees to dialyze the patient this afternoon. (JAZ DUARTE) - Vital Signs Vital signs: Temp Pulse Resp BP Pulse Ox 99.6 F 18 129/56 H 100 04/22/17 12:09 04/22/17 15:01 04/22/17 15:01 04/22/17 15:01 - Laboratory Laboratory results interpreted by me: 04/22/17 04/22/17 04/22/17 12:10 12:10 12:10 WBC 12.5 H RBC 2.62 L Hgb 8.2 L Hct 24.0 L Lymphocytes % 12.3 L Absolute Neutrophils 9.7 H Sodium 133.4 L Chloride 92 L BUN 48 H Creatinine 6.15 H Est GFR ( Amer) 11 L Est GFR (Non-Af Amer) 9 L Glucose 359 H Calcium 7.7 L Direct Bilirubin 0.6 H AST 12 L ALT 17 L Alkaline Phosphatase 143 H NT-Pro-B Natriuret Pep 2890 H Albumin 3.3 L - Consults Dr. Feldman Reason for consultation: 04/22/17 14:04 Discussed patient. Patient is accepted for admission. He said to make sure to talk to Dr. Hanley in hopes of getting the patient his dialysis today. (ABISAI VELÁSQUEZ) Dr. Hanley Reason for consultation: 04/22/17 14:28 Discussed patient. He is going to contact his nurse to see if patient can be dialyzed today. If he cannot today, he iwll be done first thing tomorrow morning. 04/22/17 14:57 Discussed patient. Patient will be dialyzed on the 4th floor dialyzed today if he can be there in the next 30 minutes. 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 (JAZ DUARTE) Scribe Documentation - Scribe Written by Scribe:: kiko Saleem, 04/22/2017, 1230 acting as scribe for :: Jayjay <ABISAI VELÁSQUEZ - Last Filed: 04/22/17 14:57>
[2017-04-22 12:28] LABS: ABSOLUTE LYMPHOCYTES (AUTO) 1.5 10^3/uL (0.5-4.7); ABSOLUTE MONOCYTES (AUTO) 1.2 10^3/uL (0.1-1.4); ABSOLUTE NEUT (AUTO) 9.7 10^3/uL (1.7-8.2); BASOPHILS % (AUTO) 0.3 % (0-2); HEMOGLOBIN 8.2 g/dL (13.5-17.0); HGB HCT DIFFERENCE 0.6; LYMPHOCYTES % (AUTO) 12.3 % (13-45); MEAN CORPUSCULAR HEMOGLOBIN 31.1 pg (27.0-33.4); MEAN CORPUSCULAR VOLUME 92 fl (80-97); MONOCYTES % (AUTO) 9.5 % (3-13); RED BLOOD COUNT 2.62 10^6/uL (4.35-5.55); RED CELL DISTRIBUTION WIDTH 13.7 % (11.5-14.0); SEGMENTED NEUTROPHILS % (AUTO) 77.9 % (42-78); WHITE BLOOD COUNT 12.5 10^3/uL (4.0-10.5)
[2017-04-22 12:46] LABS: ALANINE AMINOTRANSFERASE 17 U/L (21-72); ALBUMIN 3.3 g/dL (3.5-5.0); ALKALINE PHOSPHATASE 143 U/L (38-126); ANION GAP 14 (5-19); ASPARTATE AMINO TRANSFERASE 12 U/L (17-59); BILIRUBIN,DIRECT 0.6 mg/dL (0.0-0.4); BILIRUBIN,TOTAL 0.9 mg/dL (0.2-1.3); BLOOD UREA NITROGEN 48 mg/dL (7-20); CALCIUM 7.7 mg/dL (8.4-10.2); CARBON DIOXIDE 27 mmol/L (22-30); CHLORIDE 92 mmol/L (98-107); CREATINE KINASE 56 U/L (55-170); CREATININE RESULT 6.15 mg/dL (0.52-1.25); GLUCOSE 359 mg/dL (75-110); POTASSIUM 4.9 mmol/L (3.6-5.0); SODIUM 133.4 mmol/L (137-145); TOTAL PROTEIN 6.6 g/dL (6.3-8.2)
--- NOTE | 2017-04-22 12:50 | RADIOLOGY REPORT (SQ) ---
EXAM DESCRIPTION: CHEST SINGLE VIEW COMPLETED DATE/TIME: 04/22/2017 12:38 pm REASON FOR STUDY: SOB COMPARISON: 10/22/2016 EXAM PARAMETERS: NUMBER OF VIEWS: One view. TECHNIQUE: Single frontal radiographic view of the chest acquired. RADIATION DOSE: NA LIMITATIONS: None. FINDINGS: LUNGS AND PLEURA: No definite infiltrates are seen, but the left hemidiaphragm is indistin ct and there is some ill-defined retrocardiac opacity. MEDIASTINUM AND HILAR STRUCTURES: No masses. Contour normal. HEART AND VASCULAR STRUCTURES: Heart size is borderline. There is no evidence of failure. BONES: No acute findings. HARDWARE: None in the chest. OTHER: No other significant finding. IMPRESSION: 1. Borderline cardiomegaly without CHF. 2. A limited left lower lobe pneumonia cannot be excluded. TECHNICAL DOCUMENTATION: JOB ID: [id number]
[2017-04-22 12:58] LABS: CREATINE KINASE MB 0.7 ng/mL (<4.55); TROPONIN I 0.03 ng/mL
[2017-04-22] MEDS ORDERED: CEFEPIME 1 GM/D5W RTU 50 ML IV ONE (13:50)
[2017-04-22] MEDS ORDERED: LEVOFLOXACIN 750 MG/D5W RTU 150 ML IV ONE (13:50)
[2017-04-22] MEDS ORDERED: HEPARIN SOD (PORCINE) 1,000 UNIT/ML 1 ML VIAL IV PRN (16:40)
[2017-04-22] MEDS ORDERED: EPOETIN ALFA INJ 20000 UNIT/1 ML VIAL (RENAL) IV ONE (16:45)
[2017-04-22] MEDS ORDERED: HEPARIN SOD (PORCINE) 1,000 UNIT/ML 10 ML VIAL IV PRN (16:58)
[2017-04-22] MEDS ORDERED: TRAMADOL HCL 50 MG TABLET PO PRN (17:14)
[2017-04-22] MEDS ORDERED: (PENDING PHARMACY ID) (Cyclobenzaprine Hcl [Flexeril 5 Mg Tablet] 5 MG) PO PRN (17:14)
[2017-04-22] MEDS ORDERED: GLUCAGON,HUMAN RECOMB 1 MG INJ IM PRN (17:15)
[2017-04-22] MEDS ORDERED: DEXTROSE 40% GEL 15 GM TUBE PO PRN ×2 (17:15)
[2017-04-22] MEDS ORDERED: DEXTROSE 50%-WATER 25 GM/50 ML DISP.SYRIN IV PRN ×2 (17:15)
--- NOTE | 2017-04-22 17:45 | PDOC H&P ---
History of Present Illness Admission Date/PCP: 04/22/17 14:33 PADMINI BOND MD Patient complains of: Shortness of the breath History of Present Illness: RITA GAFFNEY is a 57 year old male This is a 57-year-old male with a history of the end-stage renal disease on hemodialysis and history of the hypertensions hyperlipidemia and a chronic neuropathy came to the emergency department with the complaining of shortness of the breath and cough and congestions with the green sputum with the low- grade fever. For the last 3 days and getting more worse. Patient's initial workup in the emergency department suggest most likely a left lower lobe pneumonia and patient was admitting in the hospital for IV antibiotic and further evaluations when I saw the patient in dialysis Patients denied any chest pain denied any shortness of the breath. Patient is recently have a incision and drainage done on the right upper thigh for the abscess to the [facility] and currently the wound looks pretty stable patient also see a Dr. 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 Neurological Medical History: Denies: Seizures Endocrine Medical History: Reports: Diabetes Mellitus Type 2, Hypothyroidism Renal/ Medical History: Reports: End Stage Renal Disease GI Medical History: Reports: Gastroesophageal Reflux Disease Musculoskeltal Medical History: Reports: Arthritis Psychiatric Medical History: Reports: Depression Hematology: Reports: Anemia Past Surgical History Past Surgical History: Reports: Cardiac Catheterization, Orthopedic Surgery - FEET, SHOULDER, Vascular Surgery - fistula left arm, Other - Many eye surgeries Social History Smoking Status: Never Smoker Frequency of Alcohol Use: Rare Hx Recreational Drug Use: No Drugs: None Hx Prescription Drug Abuse: No - Advance Directive Resuscitation Status: Full Code Family History Family History: Arthritis, CAD, COPD, CVA, DM, Hyperlipidemia, Hypertension, Malignancy, Thyroid Disfunction Parental Family History Reviewed: Yes Children Family History Reviewed: Yes Sibling(s) Family History Reviewed.: Yes Medication/Allergy Home Medications: Furosemide [Lasix 80 mg Tablet] 80 mg PO QAM 08/14/15 Cyclobenzaprine HCl [Flexeril 5 mg Tablet] 5 mg PO BIDP PRN 04/22/17 Insulin Glargine,Hum.rec.anlog [Lantus Solostar] 50 units SUBCUT QHS 04/22/17 Pregabalin [Lyrica] 200 mg PO BID 04/22/17 Tramadol HCl [Ultram 50 mg Tablet] 50 mg PO Q12HP PRN 04/22/17 Allergies/Adverse Reactions: cayenne pepper fruits Allergy (Intermediate, Verified 10/23/16 02:54) Review of Systems Constitutional: ABSENT: chills, fever(s), headache(s), weight gain, weight loss Eyes: ABSENT: visual disturbances Ears: ABSENT: hearing changes Cardiovascular: PRESENT: dyspnea on exertion. ABSENT: chest pain, edema, orthropnea, palpitations Respiratory: PRESENT: cough. ABSENT: hemoptysis Gastrointestinal: ABSENT: abdominal pain, constipation, diarrhea, hematemesis, hematochezia, nausea, vomiting Genitourinary: ABSENT: dysuria, hematuria Musculoskeletal: ABSENT: joint swelling Integumentary: ABSENT: rash, wounds Neurological: ABSENT: abnormal gait, abnormal speech, confusion, dizziness, focal weakness, syncope Psychiatric: ABSENT: anxiety, depression, homidical ideation, suicidal ideation Endocrine: ABSENT: cold intolerance, heat intolerance, menstrual abnormalities, polydipsia, polyuria Hematologic/Lymphatic: ABSENT: easy bleeding, easy bruising, lymphadenopathy Physical Exam Vital Signs: Temp Pulse Resp BP Pulse Ox 99.6 F 18 129/56 H 100 04/22/17 12:09 04/22/17 15:01 04/22/17 15:01 04/22/17 15:01 General appearance: PRESENT: no acute distress, well-developed, well-nourished Head exam: PRESENT: atraumatic, normocephalic Eye exam: PRESENT: conjunctiva pink, EOMI, PERRLA. ABSENT: scleral icterus Ear exam: PRESENT: normal external ear exam Mouth exam: PRESENT: moist, tongue midline Neck exam: PRESENT: full ROM. ABSENT: carotid bruit, JVD, lymphadenopathy, thyromegaly Respiratory exam: PRESENT: decreased breath sounds Cardiovascular exam: PRESENT: RRR. ABSENT: diastolic murmur, rubs, systolic murmur Pulses: PRESENT: normal dorsalis pedis pul, +2 pedal pulses bilateral Vascular exam: PRESENT: normal capillary refill GI/Abdominal exam: PRESENT: normal bowel sounds, soft. ABSENT: distended, guarding, mass, organolmegaly, rebound, tenderness Rectal exam: PRESENT: deferred Extremities exam: ABSENT: pedal edema Additional comments: On the right upper thigh the surgical wound looks clean and the packing is intact Neurological exam: PRESENT: alert, awake, oriented to person, oriented to place , oriented to time, oriented to situation, CN II-XII grossly intact. ABSENT: motor sensory deficit Psychiatric exam: PRESENT: appropriate affect, normal mood. ABSENT: homicidal ideation, suicidal ideation Skin exam: PRESENT: dry, intact, warm. ABSENT: cyanosis, rash Results Impressions: Chest X-Ray 04/22/17 12:19 IMPRESSION: 1. Borderline cardiomegaly without CHF. 2. A limited left lower lobe pneumonia cannot be excluded. 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 insulin use: with halfway use Is this a current diagnosis for this admission?: YesPlan: Continues a sliding scale and the regular medications (4) ESRD (end stage renal disease) on dialysis Is this a current diagnosis for this admission?: YesPlan: Consult the nephrology for further evaluation (5) COPD (chronic obstructive pulmonary disease) Qualifiers: COPD type: unspecified COPD Qualified Code(s): J44.9 - Chronic obstructive pulmonary disease, unspecified Is this a current diagnosis for this admission?: YesPlan: Put the patient on nebulizer treatment (6) Sleep apnea syndrome Qualifiers: Sleep apnea type: unspecified type Qualified Code(s): G47.30 - Sleep apnea, unspecified Is this a current diagnosis for this admission?: YesPlan: Using the CPAP at night patient is a noncompliance with the CPAP machine at night - Time Time Spent: 30 to 50 Minutes Medications reviewed and adjusted accordingly: Yes Anticipated discharge: Home Within: Other - Inpatient Certification Medical Necessity: Need for IV Antibiotics Post Hospital Care: D/C Desk Officer Documentation - Plan Summary Plan Summary: Admit the patient in IMCU consult the nephrology and start the antibiotic discussed with the patient and the about the patient's current conditions
[2017-04-22] MEDS ORDERED: CYCLOBENZAPRINE HCL 10 MG TABLET PO PRN (17:55)
[2017-04-22] MEDS ORDERED: (PENDING PHARMACY ID) (Pregabalin [Lyrica] 200 MG) PO SCH (18:00)
[2017-04-22] MEDS ORDERED: EPOETIN ALFA 10,000 UNIT in SYRINGE, DISPOSABLE, 1 EACH IV ONE (18:00)
[2017-04-22] MEDS: PREGABALIN 100 MG CAPSULE PO SCH (21:37)
[2017-04-22] MEDS: INSULIN GLARGINE,HUM.REC.ANLOG 300 UNIT/3 ML INSULN.PEN SUBCUT SCH (21:37)
[2017-04-22] MEDS: INSULIN LISPRO 100 UNIT/ML 3 ML VIAL SUBCUT PRN (21:37)
[2017-04-22] MEDS ORDERED: INSULIN GLARGINE,HUM.REC.ANLOG 1,000 UNIT/10 ML UNIT SUBCUT ONE (21:40)
[2017-04-22 22:00] LABS: CREATINE KINASE MB 1.3 ng/mL (<4.55); TROPONIN I 0.034 ng/mL
[2017-04-23] MEDS: DOCUSATE SODIUM 100 MG CAPSULE PO SCH ×3 (00:27→18:05)
[2017-04-23 03:51] LABS: ABSOLUTE BASOPHILS # (AUTO) 0.1 10^3/uL (0.0-0.2); ABSOLUTE LYMPHOCYTES (AUTO) 1.2 10^3/uL (0.5-4.7); ABSOLUTE MONOCYTES (AUTO) 0.8 10^3/uL (0.1-1.4); ABSOLUTE NEUT (AUTO) 5.9 10^3/uL (1.7-8.2); BASOPHILS % (AUTO) 0.7 % (0-2); EOSINOPHILS % (AUTO) 0.5 % (0-6); HEMATOCRIT 23.7 % (37.9-51.0); HGB HCT DIFFERENCE 0.3; LYMPHOCYTES % (AUTO) 15.1 % (13-45); MEAN CORPUSCULAR HGB CONC 33.8 g/dL (32.0-36.0); MEAN CORPUSCULAR VOLUME 92 fl (80-97); MONOCYTES % (AUTO) 9.9 % (3-13); RED BLOOD COUNT 2.58 10^6/uL (4.35-5.55); RED CELL DISTRIBUTION WIDTH 13.6 % (11.5-14.0); SEGMENTED NEUTROPHILS % (AUTO) 73.8 % (42-78)
[2017-04-23 04:16] LABS: ANION GAP 10 (5-19); BLOOD UREA NITROGEN 30 mg/dL (7-20); CARBON DIOXIDE 29 mmol/L (22-30); CHLORIDE 96 mmol/L (98-107); CREATINE KINASE 55 U/L (55-170); CREATININE RESULT 3.98 mg/dL (0.52-1.25); GLUCOSE 258 mg/dL (75-110); POTASSIUM 4.2 mmol/L (3.6-5.0); SODIUM 134.8 mmol/L (137-145)
[2017-04-23 04:27] LABS: CREATINE KINASE MB 1.14 ng/mL (<4.55); TROPONIN I 0.03 ng/mL
[2017-04-23] MEDS: ACETAMINOPHEN 325 MG TABLET PO PRN (08:03)
[2017-04-23] MEDS ORDERED: VANCOMYCIN HCL 0 MG in DEXTROSE 5%-WATER 250 ML IV NR (08:30)
--- NOTE | 2017-04-23 08:59 | PDOC PROGRESS REPORT ---
Subjective Progress Note for:: 04/23/17 Subjective:: Patient is currently doing fair patient still complains of some cough and patient was complaining of a heart with a take a deep breath.Patient also running the fever. No chest pain no shortness of the breath Dialysis done yesterday Physical Exam Vital Signs: Temp Pulse Resp BP Pulse Ox 100.4 F 65 20 113/46 L 92 04/23/17 08:00 04/23/17 08:00 04/23/17 08:00 04/23/17 08:00 04/23/17 08:00 Intake & Output 04/22/17 04/23/17 04/24/17 06:59 06:59 06:59 Intake Total 247 Output Total 1900 Balance -1653 Weight 140.3 kg General appearance: PRESENT: no acute distress, well-developed, well-nourished Head exam: PRESENT: atraumatic, normocephalic Eye exam: PRESENT: conjunctiva pink, EOMI, PERRLA. ABSENT: scleral icterus Ear exam: PRESENT: normal external ear exam Mouth exam: PRESENT: moist, tongue midline Neck exam: PRESENT: full ROM. ABSENT: carotid bruit, JVD, lymphadenopathy, thyromegaly Respiratory exam: PRESENT: decreased breath sounds Cardiovascular exam: PRESENT: RRR. ABSENT: diastolic murmur, rubs, systolic murmur Pulses: PRESENT: normal dorsalis pedis pul, +2 pedal pulses bilateral Vascular exam: PRESENT: normal capillary refill GI/Abdominal exam: PRESENT: normal bowel sounds, soft. ABSENT: distended, guarding, mass, organolmegaly, rebound, tenderness Rectal exam: PRESENT: deferred Neurological exam: PRESENT: alert, awake, oriented to person, oriented to place , oriented to time, oriented to situation. ABSENT: motor sensory deficit Psychiatric exam: PRESENT: appropriate affect, normal mood. ABSENT: homicidal ideation, suicidal ideation Skin exam: PRESENT: dry, intact, warm. ABSENT: cyanosis, rash Results Laboratory Results: 04/23/17 03:23 04/23/17 03:23 04/23/17 04/23/17 03:23 03:23 WBC 8.0 RBC 2.58 L Hgb 8.0 L Hct 23.7 L MCV 92 MCH 31.0 MCHC 33.8 RDW 13.6 Plt Count 218 Seg Neutrophils % 73.8 Lymphocytes % 15.1 Monocytes % 9.9 Eosinophils % 0.5 Basophils % 0.7 Absolute Neutrophils 5.9 Absolute Lymphocytes 1.2 Absolute Monocytes 0.8 Absolute Eosinophils 0.0 Absolute Basophils 0.1 Sodium 134.8 L Potassium 4.2 Chloride 96 L Carbon Dioxide 29 Anion Gap 10 BUN 30 H Creatinine 3.98 H Est GFR ( Amer) 19 L Est GFR (Non-Af Amer) 16 L Glucose 258 H Calcium 8.0 L 04/22/17 04/22/17 04/23/17 21:08 21:08 03:23 Creatine Kinase 62 55 CK-MB (CK-2) 1.30 Troponin I 0.034 NT-Pro-B Natriuret Pep 04/23/17 03:23 Creatine Kinase CK-MB (CK-2) 1.14 Troponin I 0.030 NT-Pro-B Natriuret Pep 2910 H Impressions: Chest X-Ray 04/22/17 12:19 IMPRESSION: 1. Borderline cardiomegaly without CHF. 2. A limited left lower lobe pneumonia cannot be excluded. Assessment & Plan - Diagnosis (1) Left lower lobe pneumonia Qualifiers: Pneumonia type: due to unspecified organism Qualified Code(s): J18.1 - Lobar pneumonia, unspecified organism Is this a current diagnosis for this admission?: YesPlan: Continues to current IV antibiotic we added the vancomycin with the patient have recent hospitalizations and get a CT of the chest to further evaluate (2) Acute and chronic respiratory failure with hypoxia Plan: Currently stable (3) Diabetes mellitus Qualifiers: Diabetes mellitus type: type 2 Diabetes mellitus complication status: with kidney complications Diabetes mellitus penitentiary insulin use: with penitentiary use Is this a current diagnosis for this admission?: YesPlan: Continues a sliding scale and the regular medications (4) ESRD (end stage renal disease) on dialysis Is this a current diagnosis for this admission?: YesPlan: Consult the nephrology for further evaluation (5) COPD (chronic obstructive pulmonary disease) Qualifiers: COPD type: unspecified COPD Qualified Code(s): J44.9 - Chronic obstructive pulmonary disease, unspecified Is this a current diagnosis for this admission?: YesPlan: Put the patient on nebulizer treatment (6) Sleep apnea syndrome Qualifiers: Sleep apnea type: unspecified type Qualified Code(s): G47.30 - Sleep apnea, unspecified Is this a current diagnosis for this admission?: YesPlan: Using the CPAP at night patient is a noncompliance with the CPAP machine at night - Time Time Spent with patient: 15-24 minutes Medications reviewed and adjusted accordingly: Yes Anticipated discharge: Home Within: Other - Inpatient Certification Medical Necessity: Need Close Monitoring Due to Risk of Patient Decompensation, Need for IV Antibiotics Post Hospital Care: D/C Balloon Seller Documentation - Plan Summary Plan Summary: Discussed with the patient and the about the all the test results and the vancomycin until all cultures grew back
[2017-04-23] MEDS: IPRATROPIUM/ALBUTEROL 0.5-2.5 MG/3 ML AMPUL NEB PRN ×2 (09:20→20:00)
--- NOTE | 2017-04-23 09:54 | RADIOLOGY REPORT (SQ) ---
EXAM DESCRIPTION: CT CHEST WITHOUT COMPLETED DATE/TIME: 04/23/2017 9:10 am REASON FOR STUDY: pnemonia COMPARISON: PET-CT 05/11/2016 CT chest 09/26/2015, 02/11/2016, 05/11/2016, 10/22/2016 TECHNIQUE: CT scan performed of the chest without intravenous contrast. Images reviewed with lung, soft tissue and bone windows. Reconstructed coronal and sagittal MPR images reviewed. All images st ored on PACS. All CT scanners at this facility use dose modulation, iterative reconstruction, and/or weight based d osing when appropriate to reduce radiation dose to as low as reasonably achievable (ALARA). [facility]: Dose Right [facility]: CareDose [facility]: Dose Right [facility]: Teradose 4D [facility]: Smart Technologies RADIATION DOSE: Up-to-date CT equipment and radiation dose reduction techniques were employed. CTDIv ol: 18.6 mGy. DLP: 660 mGy-cm. mGy. LIMITATIONS: No technical limitations. FINDINGS: LUNGS AND PLEURA: Again, rounded atelectasis is present in the left posterior costophrenic sulcus, about 7 by 4 cm size. This has been previously biopsied and evaluated with PET-CT, and is a stable finding compared to chest CT 09/26/2015. On the left side, there is diffuse pleural thickening with mild lung parenchymal volume loss. No oth er areas of consolidation worrisome for acute left-sided pneumonia or worrisome left lung mass. Right lung clear. No right or left pleural effusions or pneumothorax. HILAR AND MEDIASTINAL STRUCTURES: No identified masses or abnormal nodes. No obvious aneurysm. HEART AND VASCULAR STRUCTURES: No aneurysm. Mild pericardial thickening or trace pericardial effusio n is present, new compared to 10/22/2016. Very heavy coronary artery calcifications. UPPER ABDOMEN: Tiny stones in the gallbladder THYROID AND OTHER SOFT TISSUES: No masses. No adenopathy. BONES: No significant finding. HARDWARE: None in the chest. OTHER: No other significant findings. IMPRESSION: Stable round atelectasis in the left posterior costophrenic sulcus New trace pericardial effusion versus thickened pericardium TECHNICAL DOCUMENTATION: JOB ID: [id number] Quality ID # [id number]: Final reports with documentation of one or more dose reduction techniques (e.g., Au tomated exposure control, adjustment of the mA and/or kV according to patient size, use of iterative reconstruction technique) 2010 [employer]- All Rights Reserved
[2017-04-23] MEDS ORDERED: LEVOFLOXACIN 500 MG/D5W RTU 100 ML IV SCH (10:00)
[2017-04-23] MEDS ORDERED: ENOXAPARIN SODIUM INJ 30 MG/0.3 ML DISP.SYRIN SUBCUT SCH (10:00)
[2017-04-23] MEDS ORDERED: CEFEPIME 1 GM/D5W RTU 50 ML IV SCH (10:00)
[2017-04-23] MEDS: PREGABALIN 100 MG CAPSULE PO SCH ×2 (10:05→21:50)
[2017-04-23] MEDS ORDERED: VANCOMYCIN HCL 1,250 MG in DEXTROSE 5%-WATER 250 ML IV SCH (11:00)
[2017-04-23 11:51] LABS: CREATINE KINASE MB 0.89 ng/mL (<4.55); TROPONIN I 0.033 ng/mL
[2017-04-23] MEDS: INSULIN LISPRO 100 UNIT/ML 3 ML VIAL SUBCUT PRN ×3 (11:54→21:50)
--- NOTE | 2017-04-23 13:28 | EKG REPORT ---
SEVERITY:- BORDERLINE ECG - SINUS RHYTHM BORDERLINE T ABNORMALITIES, INFERIOR LEADS : Confirmed by: Elizabeth Dial 23-Apr-2017 13:28:01
--- NOTE | 2017-04-23 16:44 | PDOC CONSULTATION ---
<RACHEALJEDJERAMIE M - Last Filed: 04/23/17 16:40> Consultation Consult Date: 04/22/17 Consult reason:: ESRD History of Present Illness Admission Date/PCP: 04/22/17 17:08 PADMINI BOND MD History of Present Illness: RITA GAFFNEY is a 57 year old male history of the end-stage renal disease on hemodialysis Thursday, Thursday, Thursday. He has other history of diabetes, hypertension, hyperlipidemia and diabetic neuropathy. He comes to the hospital today complaining of green sputum production and decreased appetite for 3 days. He has had low-grade fevers but denies chills. He denies any chest pain or shortness of breath. He was recently seen in [facility] for an abscess on his right thigh caused him to get septic. He also recently just finished a course of p.o. antibiotics. He was unsure what antibiotic it was. Currently he is just packing the abscess twice a day and covering it with gauze. 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 Neurological Medical History: Denies: Seizures Endocrine Medical History: Reports: Diabetes Mellitus Type 2, Hypothyroidism Renal/ Medical History: Reports: End Stage Renal Disease GI Medical History: Reports: Gastroesophageal Reflux Disease Musculoskeltal Medical History: Reports: Arthritis Psychiatric Medical History: Reports: Depression Past Surgical History Past Surgical History: Reports: Cardiac Catheterization, Orthopedic Surgery - FEET, SHOULDER, Vascular Surgery - fistula left arm, Other - Many eye surgeries Social History Smoking Status: Never Smoker Frequency of Alcohol Use: Rare Hx Recreational Drug Use: No Drugs: None Hx Prescription Drug Abuse: No - Advance Directive Resuscitation Status: Full Code Family History Parental Family History Reviewed: No Children Family History Reviewed: No Sibling(s) Family History Reviewed.: No Medication/Allergy Home Medications: Furosemide [Lasix 80 mg Tablet] 80 mg PO QAM 08/14/15 Cyclobenzaprine HCl [Flexeril 5 mg Tablet] 5 mg PO BIDP PRN 04/22/17 Insulin Glargine,Hum.rec.anlog [Lantus Solostar] 50 units SUBCUT QHS 04/22/17 Pregabalin [Lyrica] 200 mg PO BID 04/22/17 Tramadol HCl [Ultram 50 mg Tablet] 50 mg PO Q12HP PRN 04/22/17 Allergies/Adverse Reactions: cayenne pepper fruits Allergy (Intermediate, Verified 10/23/16 02:54) Review of Systems Constitutional: PRESENT: fatigue, fever(s), weakness. ABSENT: chills Nose, Mouth, and Throat: ABSENT: headache(s), sore throat Cardiovascular: PRESENT: edema. ABSENT: chest pain, dyspnea on exertion, orthropnea, palpitations Respiratory: PRESENT: cough, sputum. ABSENT: dyspnea Gastrointestinal: ABSENT: constipation, diarrhea, nausea, vomiting Genitourinary: ABSENT: dysuria, hematuria Musculoskeletal: PRESENT: muscle weakness. ABSENT: joint swelling Neurological: PRESENT: numbness, weakness. ABSENT: confusion, dizziness Psychiatric: ABSENT: anxiety, depression Physical Exam Vital Signs: Temp Pulse Resp BP Pulse Ox 99.6 F 18 129/56 H 100 04/22/17 12:09 04/22/17 15:01 04/22/17 15:01 04/22/17 15:01 General appearance: PRESENT: morbidly obese, well-developed, well-nourished. ABSENT: no acute distress Head exam: PRESENT: atraumatic, normocephalic Mouth exam: PRESENT: moist, neck supple Neck exam: PRESENT: full ROM. ABSENT: JVD, tracheal deviation Respiratory exam: PRESENT: rhonchi - -LLL. ABSENT: accessory muscle use, chest wall tenderness, clear to auscultation nelson, stridor, wheezes Cardiovascular exam: PRESENT: RRR, +S1, +S2 GI/Abdominal exam: PRESENT: normal bowel sounds, soft. ABSENT: diminished bowel sounds, distended, guarding, hyperactive bowel sounds, hypoactive bowel sounds Extremities exam: PRESENT: pedal edema - -trace. ABSENT: joint swelling Musculoskeletal exam: PRESENT: other - -6cm long incison that was packed and covered in guaze. Did not look infected. Neurological exam: PRESENT: alert, awake, oriented to person, oriented to place , oriented to time, oriented to situation Psychiatric exam: PRESENT: appropriate affect, normal mood. ABSENT: anxious Skin exam: PRESENT: dry, warm. ABSENT: cyanosis, rash Results Impressions: Chest X-Ray 04/22/17 12:19 IMPRESSION: 1. Borderline cardiomegaly without CHF. 2. A limited left lower lobe pneumonia cannot be excluded. Assessment & Plan - Diagnosis (1) Diabetes mellitus Qualifiers: Diabetes mellitus type: type 2 Diabetes mellitus complication status: with kidney complications Diabetes mellitus long term care pharmacist insulin use: with long term care pharmacist use Is this a current diagnosis for this admission?: YesPlan: currently being controlled by insulin (2) ESRD (end stage renal disease) on dialysis Is this a current diagnosis for this admission?: YesPlan: Will receive dialysis on MWF as he normally does. Recommend placing him on a low phosphorous and low potassium diet with limited fluid intake to 32oz a day. (3) Pneumonia Qualifiers: Pneumonia type: due to unspecified organism Laterality: left Lung location: upper lobe of lung Qualified Code(s): J18.1 - Lobar pneumonia, unspecified organism Plan: Recommend adjusting levofloxacin at 500 mg initial dose, then decrease down to 250mg every 48 hours. Recommend cefepime to be given at the last 30 minutes of dialysis treatment on dialysis days at 2g loading and 1g after. Also recommend adding vancomycin since he had a recent stay in the hospital last week. Renal dose at 2 g loading initially, then 1 g maintenance. (4) Anemia, chronic renal failure Plan: Giving procrit 10,000 units on dialysis. <Bora WILKINS - Last Filed: 04/24/17 13:18> History of Present Illness Admission Date/PCP: 04/22/17 17:08 PADMINI BOND MD History of Present Illness: RITA GAFFNEY is a 57 year old male Patient well-known to us. History of severe noncompliance with diet and medications and hemodialysis. He has had a history of missing on multiple hemodialysis treatments sometimes continuously. Comes in educating the patient the consequences and complications of missing dialysis treatments as well as noncompliance with diet especially potassium and phosphorus has fallen on deaf ears. Physical Exam Vital Signs: Temp Pulse Resp BP Pulse Ox 101.0 F H 89 16 101/50 L 94 04/24/17 11:33 04/24/17 11:33 04/24/17 11:33 04/24/17 11:33 04/24/17 11:33 Intake & Output 04/23/17 04/24/17 04/25/17 06:59 06:59 06:59 Intake Total 247 1755 360 Output Total 1900 Balance -1653 1755 360 Weight 140.3 kg 142.8 kg Results Laboratory Results: 04/24/17 05:20 04/24/17 05:20 04/24/17 04/24/17 05:20 05:20 WBC 8.3 RBC 2.60 L Hgb 8.0 L Hct 23.8 L MCV 91 MCH 30.7 MCHC 33.6 RDW 14.0 Plt Count 242 Seg Neutrophils % 76.5 Lymphocytes % 12.4 L Monocytes % 8.4 Eosinophils % 2.1 Basophils % 0.6 Absolute Neutrophils 6.4 Absolute Lymphocytes 1.0 Absolute Monocytes 0.7 Absolute Eosinophils 0.2 Absolute Basophils 0.0 Retic Count (auto) 2.20 Absolute Retic 0.057 Sodium 133.0 L Potassium 4.4 Chloride 92 L Carbon Dioxide 27 Anion Gap 14 BUN 41 H Creatinine 5.74 H Est GFR ( Amer) 12 L Est GFR (Non-Af Amer) 10 L Glucose 253 H Calcium 8.0 L Iron < 10.1 L TIBC 176 L % Saturation UNABLE TO CALCULATE Ferritin 1430.00 H Vitamin B12 446.0 Folate 8.09 04/22/17 04/22/17 04/23/17 21:08 21:08 03:23 Creatine Kinase 62 55 CK-MB (CK-2) 1.30 Troponin I 0.034 NT-Pro-B Natriuret Pep 04/23/17 04/23/17 04/23/17 03:23 10:50 10:50 Creatine Kinase 48 L CK-MB (CK-2) 1.14 0.89 Troponin I 0.030 0.033 NT-Pro-B Natriuret Pep 2910 H Impressions: Chest X-Ray 04/22/17 12:19 IMPRESSION: 1. Borderline cardiomegaly without CHF. 2. A limited left lower lobe pneumonia cannot be excluded. Chest CT 04/23/17 00:00 IMPRESSION: Stable round atelectasis in the left posterior costophrenic sulcus New trace pericardial effusion versus thickened pericardium
--- NOTE | 2017-04-23 16:54 | PDOC PROGRESS REPORT ---
Subjective Progress Note for:: 04/23/17 Subjective:: Patient was seen today lying in bed comfortably. He has no complaints of fever shortness of breath. His appetite remains decreased. No complaints of chest pain at this time. Patient states that he is ready to get out of the hospital because he would like to go to [place] for a family event. Physical Exam Vital Signs: Temp Pulse Resp BP Pulse Ox 98.4 F 77 20 90/54 L 97 04/23/17 15:35 04/23/17 16:00 04/23/17 15:35 04/23/17 16:00 04/23/17 15:35 Intake & Output 04/22/17 04/23/17 04/24/17 06:59 06:59 06:59 Intake Total 247 150 Output Total 1900 Balance -1653 150 Weight 140.3 kg General appearance: PRESENT: no acute distress, morbidly obese, well-developed, well-nourished Head exam: PRESENT: atraumatic, normocephalic Mouth exam: PRESENT: moist, neck supple Neck exam: PRESENT: full ROM. ABSENT: JVD, tracheal deviation Respiratory exam: PRESENT: rhonchi - LLL. ABSENT: accessory muscle use, chest wall tenderness, clear to auscultation nelson, wheezes Cardiovascular exam: PRESENT: RRR, +S1, +S2 Vascular exam: PRESENT: normal capillary refill GI/Abdominal exam: PRESENT: soft. ABSENT: distended, guarding Extremities exam: ABSENT: joint swelling, pedal edema, tenderness Musculoskeletal exam: PRESENT: normal inspection. ABSENT: deformity Neurological exam: PRESENT: alert, awake, oriented to person, oriented to place , oriented to time, oriented to situation Psychiatric exam: PRESENT: appropriate affect, normal mood Skin exam: PRESENT: dry, intact, warm Results Laboratory Results: 04/23/17 03:23 04/23/17 03:23 04/23/17 04/23/17 03:23 03:23 WBC 8.0 RBC 2.58 L Hgb 8.0 L Hct 23.7 L MCV 92 MCH 31.0 MCHC 33.8 RDW 13.6 Plt Count 218 Seg Neutrophils % 73.8 Lymphocytes % 15.1 Monocytes % 9.9 Eosinophils % 0.5 Basophils % 0.7 Absolute Neutrophils 5.9 Absolute Lymphocytes 1.2 Absolute Monocytes 0.8 Absolute Eosinophils 0.0 Absolute Basophils 0.1 Sodium 134.8 L Potassium 4.2 Chloride 96 L Carbon Dioxide 29 Anion Gap 10 BUN 30 H Creatinine 3.98 H Est GFR ( Amer) 19 L Est GFR (Non-Af Amer) 16 L Glucose 258 H Calcium 8.0 L 04/22/17 04/22/17 04/23/17 21:08 21:08 03:23 Creatine Kinase 62 55 CK-MB (CK-2) 1.30 Troponin I 0.034 NT-Pro-B Natriuret Pep 04/23/17 04/23/17 04/23/17 03:23 10:50 10:50 Creatine Kinase 48 L CK-MB (CK-2) 1.14 0.89 Troponin I 0.030 0.033 NT-Pro-B Natriuret Pep 2910 H Impressions: Chest X-Ray 04/22/17 12:19 IMPRESSION: 1. Borderline cardiomegaly without CHF. 2. A limited left lower lobe pneumonia cannot be excluded. Chest CT 04/23/17 00:00 IMPRESSION: Stable round atelectasis in the left posterior costophrenic sulcus New trace pericardial effusion versus thickened pericardium Assessment & Plan - Diagnosis (1) Diabetes mellitus Qualifiers: Diabetes mellitus type: type 2 Diabetes mellitus complication status: with kidney complications Diabetes mellitus correction insulin use: with termite helper use Is this a current diagnosis for this admission?: YesPlan: currently being controlled by insulin (2) ESRD (end stage renal disease) on dialysis Is this a current diagnosis for this admission?: YesPlan: Dialysis for tomorrow (3) Pneumonia Qualifiers: Pneumonia type: due to unspecified organism Laterality: left Lung location: upper lobe of lung Qualified Code(s): J18.1 - Lobar pneumonia, unspecified organism Plan: Recommend adjusting levofloxacin at 500 mg initial dose, then decrease down to 250mg every 48 hours. Recommend cefepime to be given at the last 30 minutes of dialysis treatment. Recommend giving vancomycin at the last 30 minutes of dialysis. (4) Anemia, chronic renal failure Plan: Giving procrit 10,000 units on dialysis days. Will check iron studies.
--- NOTE | 2017-04-23 18:19 | XCELERA REPORT ---
[address] [address] Transthoracic Echocardiogram Report Name: RITA GAFFNEY Age: 57 yrs Gender: Male : 1960 Patient Status: Inpatient Patient Location: 3W\S\319\S\A Study Date: 04/23/2017 02:50 PM Height: 71 in Weight: 309 lb BSA: 2.5 m2 Procedure: A two-dimensional transthoracic echocardiogram with color flow and Doppler was performed. The study was technically difficult with many images being suboptimal in quality. Reason For Study: pericardial effusion History: pericardial effusion. Ordering Physician: PADMINI BOND Performed By: Marilu Guzman Interpretation Summary The left ventricle is normal in size. There is normal left ventricular wall thickness. LV EF is 55% Left ventricular systolic function is low normal. Doppler measurements suggest normal left ventricular diastolic function The left ventricular wall motion is normal. The left atrial size is normal. Calcified mitral apparatus causing mitral stenosis. There is no evidence of mitral valve prolapse. There is mild mitral stenosis There is no mitral regurgitation noted. The aortic valve is mildly calcified There is no aortic valve stenosis There is no LVOT obstruction. There is no tricuspid stenosis. There is a mild amount of tricuspid regurgitation There is mild pulmonary hypertension by echo RVSP is 41 mm of Hg , with RA mean of 10. Trace physiologic pericardial fluid. MMode/2D Measurements \T\ Calculations RVDd: 3.4 cm LVIDd: 5.6 cm FS: 32.8 % Ao root diam: 3.4 cm IVSd: 1.0 cm LVIDs: 3.7 cm EDV(Teich): 152.5 ml LVPWd: 1.1 cm ESV(Teich): 60.0 ml Ao root area: 9.1 cm2 EF(Teich): 60.7 % LA dimension: 4.8 cm Doppler Measurements \T\ Calculations MV E max esther: MV P1/2t max esther: Ao V2 max: LV V1 max P.1 cm/sec 108.6 cm/sec 145.2 cm/sec 5.2 mmHg MV A max esther: MV P1/2t: 64.8 msec Ao max PG: LV V1 max: 101.2 cm/sec 8.4 mmHg 113.5 cm/sec MV E/A: 1.1 MVA(P1/2t): 3.4 cm2 MV dec slope: 490.6 cm/sec2 MV dec time: 0.20 sec PA V2 max: TR max esther: 89.8 cm/sec 275.8 cm/sec PA max PG: TR max P.4 mmHg 3.2 mmHg Left Ventricle The left ventricle is normal in size. There is normal left ventricular wall thickness. LV EF is 55%. Left ventricular systolic function is low normal. Doppler measurements suggest normal left ventricular diastolic function. The left ventricular wall motion is normal. There is no thrombus. There is no ventricular septal defect visualized. Right Ventricle The right ventricle is not well visualized secondary to technical limitations. Atria The right atrium is normal. The left atrial size is normal. The interatrial septum is intact with no evidence for an atrial septal defect. Mitral Valve Calcified mitral apparatus causing mitral stenosis. There is no evidence of mitral valve prolapse. There is no vegetation seen on the mitral valve. There is mild mitral stenosis. There is no mitral regurgitation noted. Aortic Valve The aortic valve is mildly calcified. There is no aortic valvular vegetation. There is no aortic valve stenosis. There is no LVOT obstruction. No aortic regurgitation is present. Tricuspid Valve There is no tricuspid stenosis. There is a mild amount of tricuspid regurgitation. There is mild pulmonary hypertension by echo. RVSP is 41 mm of Hg , with RA mean of 10. Pulmonic Valve There is no pulmonic valvular stenosis. There is no pulmonic valvular regurgitation. Great Vessels The aortic root is normal size. Effusions Trace physiologic pericardial fluid. : PADMINI BOND > Hoda Marques
[2017-04-23] MEDS: INSULIN GLARGINE,HUM.REC.ANLOG 300 UNIT/3 ML INSULN.PEN SUBCUT SCH (21:49)
[2017-04-24] MEDS: OXYCODONE-ACETAMINOPHEN 5-325 MG TABLET PO PRN ×2 (04:09→17:22)
[2017-04-24 06:08] LABS: ABSOLUTE EOSINOPHILS # (AUTO) 0.2 10^3/uL (0.0-0.6); ABSOLUTE MONOCYTES (AUTO) 0.7 10^3/uL (0.1-1.4); ABSOLUTE NEUT (AUTO) 6.4 10^3/uL (1.7-8.2); BASOPHILS % (AUTO) 0.6 % (0-2); EOSINOPHILS % (AUTO) 2.1 % (0-6); HEMATOCRIT 23.8 % (37.9-51.0); HGB HCT DIFFERENCE 0.2; LYMPHOCYTES % (AUTO) 12.4 % (13-45); MEAN CORPUSCULAR HEMOGLOBIN 30.7 pg (27.0-33.4); MEAN CORPUSCULAR HGB CONC 33.6 g/dL (32.0-36.0); MEAN CORPUSCULAR VOLUME 91 fl (80-97); MONOCYTES % (AUTO) 8.4 % (3-13); SEGMENTED NEUTROPHILS % (AUTO) 76.5 % (42-78); WHITE BLOOD COUNT 8.3 10^3/uL (4.0-10.5)
[2017-04-24] MEDS: INSULIN LISPRO 100 UNIT/ML 3 ML VIAL SUBCUT PRN ×4 (06:16→21:50)
[2017-04-24 06:24] LABS: ANION GAP 14 (5-19); BLOOD UREA NITROGEN 41 mg/dL (7-20); CARBON DIOXIDE 27 mmol/L (22-30); CHLORIDE 92 mmol/L (98-107); CREATININE RESULT 5.74 mg/dL (0.52-1.25); GLUCOSE 253 mg/dL (75-110); POTASSIUM 4.4 mmol/L (3.6-5.0)
[2017-04-24] MEDS ORDERED: EPOETIN ALFA INJ 20000 UNIT/1 ML VIAL (RENAL) IV PRN (07:00)
[2017-04-24 07:30] LABS: FOLATE 8.09 ng/mL (>2.76)
[2017-04-24] MEDS: ACETAMINOPHEN 325 MG TABLET PO PRN ×2 (08:39→18:50)
[2017-04-24] MEDS: IPRATROPIUM/ALBUTEROL 0.5-2.5 MG/3 ML AMPUL NEB PRN ×2 (09:48→20:05)
[2017-04-24] MEDS ORDERED: HEPARIN SOD (PORCINE) 5,000 UNIT/ML 1 ML SYRINGE IV SCH (10:00)
[2017-04-24] MEDS ORDERED: LEVOFLOXACIN 500 MG/D5W RTU 500 MG/100 ML RTUPB IV SCH (10:00)
[2017-04-24] MEDS: HEPARIN SOD (PORCINE) 5,000 UNIT/ML 1 ML SYRINGE SUBCUT SCH ×2 (10:20→21:51)
[2017-04-24] MEDS: DOCUSATE SODIUM 100 MG CAPSULE PO SCH ×2 (10:20→17:22)
[2017-04-24] MEDS: LEVOFLOXACIN 250 MG/D5W RTU 250 MG/50 ML RTUPB IV SCH (10:20)
[2017-04-24] MEDS: PREGABALIN 100 MG CAPSULE PO SCH ×2 (10:20→21:49)
[2017-04-24] MEDS: CEFEPIME HCL 1 GM in DEXTROSE 5%-WATER 50 ML IV SCH (12:14)
--- NOTE | 2017-04-24 13:27 | PROGRESS NOTE E ---
Progress Note NAME: RITA GAFFNEY : 1960 AGE: 57Y DATE: 04/24/2017 ROOM: 319 SUBJECTIVE: The patient is apparently doing fair. Denied any chest pain. The patient had an echocardiogram done yesterday with no significant pericardial effusions, no sign of any pericarditis. Patient is still running 101 fever. Other than that, patient has a minimal cough, but nothing else. The patient denied any abdominal pain. No nausea, no vomiting. OBJECTIVE: VITAL SIGNS: Temperature was 101.0, pulse was 89, blood pressure was 101/50, respirations were 16, O2 saturation 94% on room air. GENERAL: The patient is alert, awake, oriented x3, was not in acute distress. HEAD/NECK: Normocephalic. PERRLA. LUNGS: No wheezing, no rales, no rhonchi. HEART: S1 and S2 are present. ABDOMEN: Soft. Bowel sounds present. EXTREMITIES: No edema. BACK: There were some stage 1 sacral decubitus ulcers present on the right upper thigh. Incision and drainage of the wound was all stable. No draining. NEUROLOGIC: The patient moves all extremities. Alert, awake, oriented. No focal weaknesses. LABORATORY: WBC is 8.3, hemoglobin is 8.0, platelet is 242. Sodium is 133, potassium is 4.4, BUN is 41, creatinine is 5.74. The patient's iron is low. TIBC is 176, ferritin is 1430. ASSESSMENT: 1. LEFT-SIDED PNEUMONIA. 2. FEVER. 3. RECENT ABSCESS ON THE RIGHT UPPER THIGH WITH INCISION AND DRAINAGE. 4. HYPERTENSION. 5. HYPERLIPIDEMIA. 6. CHRONIC NEUROPATHY. 7. END-STAGE RENAL DISEASE ON HEMODIALYSIS. PLAN: At this point, continue the IV Levaquin, cefepime, and the vancomycin until the fever subsides. Will wait for all the microbiology. Other than that, will cover the hospital-acquired pneumonia. Will continue to monitor. Follow up with Nephrology. Discussed with the and the patient. The patient is unable to go home today, needs to stay. I hope the patient continues to be improved. The patient is complaining of some constipation. Will give him some stool softener and need to check the urine culture, too. DICTATING PHYSICIAN: PADMINI BOND M.D. [id number] PHY#: [id number] ID: [id number] JOB#: [id number] ACCT: [id number] cc: >
--- NOTE | 2017-04-24 14:07 | RADIOLOGY REPORT (SQ) ---
EXAM DESCRIPTION: CHEST PA/LAT COMPLETED DATE/TIME: 04/24/2017 1:47 pm REASON FOR STUDY: pnemonia COMPARISON: 10/22/2016 EXAM PARAMETERS: NUMBER OF VIEWS: two views TECHNIQUE: Digital Frontal and Lateral radiographic views of the chest acquired. RADIATION DOSE: NA LIMITATIONS: none FINDINGS: LUNGS AND PLEURA: There is left retrocardiac airspace disease consistent with pneumonia. No definite effusion. Right lung field is clear. MEDIASTINUM AND HILAR STRUCTURES: No masses or contour abnormalities. HEART AND VASCULAR STRUCTURES: Heart normal size. No evidence for failure. BONES: No acute findings. HARDWARE: None in the chest. OTHER: No other significant finding. IMPRESSION: Left retrocardiac infiltrate consistent with pneumonia. TECHNICAL DOCUMENTATION: JOB ID: [id number] [employer]- All Rights Reserved
[2017-04-24] MEDS: POLYETHYLENE GLYCOL 3350 POWDER 17 GM/1 PACKET PO SCH (17:23)
[2017-04-24] MEDS ORDERED: VANCOMYCIN HCL 750 MG in DEXTROSE 5%-WATER 250 ML IV SCH (18:00)
[2017-04-24] MEDS: INSULIN GLARGINE,HUM.REC.ANLOG 300 UNIT/3 ML INSULN.PEN SUBCUT SCH (21:48)
[2017-04-25] MEDS: OXYCODONE-ACETAMINOPHEN 5-325 MG TABLET PO PRN (03:18)
[2017-04-25 06:16] LABS: ABSOLUTE BASOPHILS # (AUTO) 0.1 10^3/uL (0.0-0.2); ABSOLUTE EOSINOPHILS # (AUTO) 0.4 10^3/uL (0.0-0.6); ABSOLUTE LYMPHOCYTES (AUTO) 1.3 10^3/uL (0.5-4.7); ABSOLUTE MONOCYTES (AUTO) 0.7 10^3/uL (0.1-1.4); ABSOLUTE NEUT (AUTO) 4.4 10^3/uL (1.7-8.2); BASOPHILS % (AUTO) 0.9 % (0-2); EOSINOPHILS % (AUTO) 5.8 % (0-6); HEMATOCRIT 22.4 % (37.9-51.0); HGB HCT DIFFERENCE -0.2; LYMPHOCYTES % (AUTO) 18.5 % (13-45); MEAN CORPUSCULAR HEMOGLOBIN 30.3 pg (27.0-33.4); MEAN CORPUSCULAR VOLUME 92 fl (80-97); MONOCYTES % (AUTO) 10.2 % (3-13); RED BLOOD COUNT 2.43 10^6/uL (4.35-5.55); SEGMENTED NEUTROPHILS % (AUTO) 64.6 % (42-78); WHITE BLOOD COUNT 6.8 10^3/uL (4.0-10.5)
[2017-04-25 06:20] LABS: HEMOGLOBIN 7.4 g/dL (13.5-17.0)
[2017-04-25 06:42] LABS: ANION GAP 10 (5-19); BLOOD UREA NITROGEN 39 mg/dL (7-20); CALCIUM 8.1 mg/dL (8.4-10.2); CARBON DIOXIDE 27 mmol/L (22-30); CHLORIDE 92 mmol/L (98-107); CREATININE RESULT 5.94 mg/dL (0.52-1.25); GLUCOSE 311 mg/dL (75-110); POTASSIUM 4.2 mmol/L (3.6-5.0); SODIUM 129.4 mmol/L (137-145)
[2017-04-25] MEDS: INSULIN LISPRO 100 UNIT/ML 3 ML VIAL SUBCUT PRN ×4 (07:35→21:36)
[2017-04-25 09:09] LABS: APPEARANCE,URINE CLOUDY; BILIRUBIN,URINE NEGATIVE (NEGATIVE); GLUCOSE, URINE >=500 mg/dL (NEGATIVE); KETONES,URINE NEGATIVE (NEGATIVE); LEUKOCYTE ESTERASE,URINE NEGATIVE (NEGATIVE); NITRITE,URINE NEGATIVE (NEGATIVE); PROTEIN,URINE >=500 mg/dL (NEGATIVE); URINE SPECIFIC GRAVITY 1.017; UROBILINOGEN,URINE NEGATIVE mg/dL (<2.0)
[2017-04-25] MEDS: DOCUSATE SODIUM 100 MG CAPSULE PO SCH ×2 (09:58→18:13)
[2017-04-25] MEDS: PREGABALIN 100 MG CAPSULE PO SCH ×2 (09:58→21:27)
[2017-04-25] MEDS: HEPARIN SOD (PORCINE) 5,000 UNIT/ML 1 ML SYRINGE SUBCUT SCH ×2 (09:59→21:40)
[2017-04-25] MEDS: CEFEPIME HCL 1 GM in DEXTROSE 5%-WATER 50 ML IV SCH (09:59)
--- NOTE | 2017-04-25 16:08 | PDOC PROGRESS REPORT ---
Subjective Progress Note for:: 04/25/17 Subjective:: Patient was seen by the bedside, he is admitted for pneumonia, history of end- stage renal disease, the hemogram showed hemoglobin 7, sodium is in the 120 range he had minimal hemodialysis yesterday. Physical Exam Vital Signs: Temp Pulse Resp BP Pulse Ox 98.5 F 78 18 100/47 L 95 04/25/17 11:44 04/25/17 14:00 04/25/17 11:44 04/25/17 11:44 04/25/17 11:44 Intake & Output 04/24/17 04/25/17 04/26/17 06:59 06:59 06:59 Intake Total 1755 1925 459 Output Total 0 450 Balance 1755 1925 9 Weight 142.8 kg 143.2 kg General appearance: PRESENT: no acute distress Eye exam: PRESENT: PERRLA Respiratory exam: PRESENT: clear to auscultation nelson Cardiovascular exam: PRESENT: +S1, +S2 GI/Abdominal exam: PRESENT: soft Neurological exam: PRESENT: alert Results Laboratory Results: 04/25/17 05:55 04/25/17 05:55 04/24/17 04/25/17 04/25/17 05:20 05:55 05:55 WBC 6.8 RBC 2.43 L Hgb 7.4 L Hct 22.4 L MCV 92 MCH 30.3 MCHC 33.0 RDW 14.0 Plt Count 236 Seg Neutrophils % 64.6 Lymphocytes % 18.5 Monocytes % 10.2 Eosinophils % 5.8 Basophils % 0.9 Absolute Neutrophils 4.4 Absolute Lymphocytes 1.3 Absolute Monocytes 0.7 Absolute Eosinophils 0.4 Absolute Basophils 0.1 Sodium 129.4 L Potassium 4.2 Chloride 92 L Carbon Dioxide 27 Anion Gap 10 BUN 39 H Creatinine 5.94 H Est GFR ( Amer) 12 L Est GFR (Non-Af Amer) 10 L Glucose 311 H Calcium 8.1 L Transferrin 120 L Urine Color Urine Appearance Urine pH Ur Specific [place] Urine Protein Urine Glucose (UA) Urine Ketones Urine Blood Urine Nitrite Ur Leukocyte Esterase Urine WBC (Auto) Urine RBC (Auto) 04/25/17 08:35 WBC RBC Hgb Hct MCV MCH MCHC RDW Plt Count Seg Neutrophils % Lymphocytes % Monocytes % Eosinophils % Basophils % Absolute Neutrophils Absolute Lymphocytes Absolute Monocytes Absolute Eosinophils Absolute Basophils Sodium Potassium Chloride Carbon Dioxide Anion Gap BUN Creatinine Est GFR ( Amer) Est GFR (Non-Af Amer) Glucose Calcium Transferrin Urine Color DARK YELLOW Urine Appearance CLOUDY Urine pH 5.0 Ur Specific [place] 1.017 Urine Protein >=500 H Urine Glucose (UA) >=500 H Urine Ketones NEGATIVE Urine Blood NEGATIVE Urine Nitrite NEGATIVE Ur Leukocyte Esterase NEGATIVE Urine WBC (Auto) 3 Urine RBC (Auto) 1 04/22/17 04/22/17 04/23/17 21:08 21:08 03:23 Creatine Kinase 62 55 CK-MB (CK-2) 1.30 Troponin I 0.034 NT-Pro-B Natriuret Pep 04/23/17 04/23/17 04/23/17 03:23 10:50 10:50 Creatine Kinase 48 L CK-MB (CK-2) 1.14 0.89 Troponin I 0.030 0.033 NT-Pro-B Natriuret Pep 2910 H Impressions: Chest CT 04/23/17 00:00 IMPRESSION: Stable round atelectasis in the left posterior costophrenic sulcus New trace pericardial effusion versus thickened pericardium Chest X-Ray 04/24/17 00:00 IMPRESSION: Left retrocardiac infiltrate consistent with pneumonia. Assessment & Plan - Diagnosis (1) Pneumonia Qualifiers: Pneumonia type: due to unspecified organism Laterality: unspecified laterality Lung location: unspecified part of lung Qualified Code(s) : J18.9 - Pneumonia, unspecified organism Is this a current diagnosis for this admission?: Yes (2) ESRD (end stage renal disease) on dialysis Is this a current diagnosis for this admission?: Yes (3) CAD (coronary artery disease) Qualifiers: Coronary Disease-Associated Artery/Lesion type: unspecified vessel or lesion type [place] vs. transplanted heart: unspecified whether [place] or transplanted heart Associated angina: angina presence unspecified Qualified Code(s): I25.10 - Atherosclerotic heart disease of [place] coronary artery without angina pectoris Is this a current diagnosis for this admission?: Yes (4) History of atrial fibrillation Is this a current diagnosis for this admission?: Yes (5) Hypothyroidism Qualifiers: Hypothyroidism type: acquired Qualified Code(s): E03.9 - Hypothyroidism, unspecified Is this a current diagnosis for this admission?: Yes - Plan Summary Plan Summary: Continue IV antibiotic
[2017-04-25] MEDS: IPRATROPIUM/ALBUTEROL 0.5-2.5 MG/3 ML AMPUL NEB PRN (16:29)
[2017-04-25] MEDS ORDERED: BISACODYL 5 MG TABEC PO ONE (16:45)
[2017-04-25] MEDS: POLYETHYLENE GLYCOL 3350 POWDER 17 GM/1 PACKET PO SCH (18:13)
[2017-04-25] MEDS: INSULIN GLARGINE,HUM.REC.ANLOG 300 UNIT/3 ML INSULN.PEN SUBCUT SCH (21:28)
[2017-04-26 05:36] LABS: ABSOLUTE EOSINOPHILS # (AUTO) 0.5 10^3/uL (0.0-0.6); ABSOLUTE LYMPHOCYTES (AUTO) 1.3 10^3/uL (0.5-4.7); ABSOLUTE MONOCYTES (AUTO) 0.5 10^3/uL (0.1-1.4); ABSOLUTE NEUT (AUTO) 4.5 10^3/uL (1.7-8.2); BASOPHILS % (AUTO) 0.5 % (0-2); EOSINOPHILS % (AUTO) 7.9 % (0-6); HEMATOCRIT 24.7 % (37.9-51.0); HEMOGLOBIN 8.3 g/dL (13.5-17.0); HGB HCT DIFFERENCE 0.2; LYMPHOCYTES % (AUTO) 18.6 % (13-45); MEAN CORPUSCULAR HEMOGLOBIN 30.5 pg (27.0-33.4); MEAN CORPUSCULAR HGB CONC 33.7 g/dL (32.0-36.0); MEAN CORPUSCULAR VOLUME 91 fl (80-97); MONOCYTES % (AUTO) 7.1 % (3-13); RED BLOOD COUNT 2.73 10^6/uL (4.35-5.55); RED CELL DISTRIBUTION WIDTH 14.1 % (11.5-14.0); SEGMENTED NEUTROPHILS % (AUTO) 65.9 % (42-78); WHITE BLOOD COUNT 6.8 10^3/uL (4.0-10.5)
[2017-04-26 05:54] LABS: ALANINE AMINOTRANSFERASE 40 U/L (21-72); ALBUMIN 2.9 g/dL (3.5-5.0); ALKALINE PHOSPHATASE 95 U/L (38-126); ANION GAP 14 (5-19); ASPARTATE AMINO TRANSFERASE 40 U/L (17-59); BILIRUBIN,DIRECT 0.4 mg/dL (0.0-0.4); BILIRUBIN,TOTAL 0.4 mg/dL (0.2-1.3); BLOOD UREA NITROGEN 51 mg/dL (7-20); CALCIUM 8.6 mg/dL (8.4-10.2); CARBON DIOXIDE 27 mmol/L (22-30); CHLORIDE 92 mmol/L (98-107); CREATININE RESULT 6.98 mg/dL (0.52-1.25); GLUCOSE 257 mg/dL (75-110); POTASSIUM 4.6 mmol/L (3.6-5.0); SODIUM 133.2 mmol/L (137-145); TOTAL PROTEIN 5.9 g/dL (6.3-8.2)
[2017-04-26] MEDS: INSULIN LISPRO 100 UNIT/ML 3 ML VIAL SUBCUT PRN ×4 (07:40→22:11)
[2017-04-26] MEDS: PREGABALIN 100 MG CAPSULE PO SCH ×2 (09:51→22:11)
[2017-04-26] MEDS: DOCUSATE SODIUM 100 MG CAPSULE PO SCH ×2 (09:51→17:06)
[2017-04-26] MEDS: CEFEPIME HCL 1 GM in DEXTROSE 5%-WATER 50 ML IV SCH (09:52)
[2017-04-26] MEDS: HEPARIN SOD (PORCINE) 5,000 UNIT/ML 1 ML SYRINGE SUBCUT SCH ×2 (09:52→22:11)
[2017-04-26] MEDS: LEVOFLOXACIN 250 MG/D5W RTU 250 MG/50 ML RTUPB IV SCH (10:40)
[2017-04-26] MEDS: OXYCODONE-ACETAMINOPHEN 5-325 MG TABLET PO PRN (11:28)
--- NOTE | 2017-04-26 11:57 | PDOC PROGRESS REPORT ---
Subjective Progress Note for:: 04/26/17 Subjective:: Patient developed an erythematous rash involving the torso and the extremities, this suggests drug induced rash most likely for cefepime Physical Exam Vital Signs: Temp Pulse Resp BP Pulse Ox 98.4 F 78 18 117/48 L 99 04/26/17 07:45 04/26/17 07:45 04/26/17 07:45 04/26/17 07:45 04/26/17 07:45 Intake & Output 04/25/17 04/26/17 04/27/17 06:59 06:59 06:59 Intake Total 1925 1421 Output Total 0 450 Balance 1925 971 Weight 143.2 kg 143.6 kg General appearance: PRESENT: no acute distress Eye exam: PRESENT: PERRLA Respiratory exam: PRESENT: clear to auscultation nelson Cardiovascular exam: PRESENT: +S1, +S2 GI/Abdominal exam: PRESENT: soft Neurological exam: PRESENT: altered, CN II-XII grossly intact Skin exam: PRESENT: erythema, rash Results Laboratory Results: 04/26/17 04:55 04/26/17 04:55 04/26/17 04/26/17 04:55 04:55 WBC 6.8 RBC 2.73 L Hgb 8.3 L Hct 24.7 L MCV 91 MCH 30.5 MCHC 33.7 RDW 14.1 H Plt Count 283 Seg Neutrophils % 65.9 Lymphocytes % 18.6 Monocytes % 7.1 Eosinophils % 7.9 H Basophils % 0.5 Absolute Neutrophils 4.5 Absolute Lymphocytes 1.3 Absolute Monocytes 0.5 Absolute Eosinophils 0.5 Absolute Basophils 0.0 Sodium 133.2 L Potassium 4.6 Chloride 92 L Carbon Dioxide 27 Anion Gap 14 BUN 51 H Creatinine 6.98 H Est GFR ( Amer) 10 L Est GFR (Non-Af Amer) 8 L Glucose 257 H Calcium 8.6 Total Bilirubin 0.4 AST 40 ALT 40 Alkaline Phosphatase 95 Total Protein 5.9 L Albumin 2.9 L 04/22/17 04/22/17 04/23/17 21:08 21:08 03:23 Creatine Kinase 62 55 CK-MB (CK-2) 1.30 Troponin I 0.034 NT-Pro-B Natriuret Pep 04/23/17 04/23/17 04/23/17 03:23 10:50 10:50 Creatine Kinase 48 L CK-MB (CK-2) 1.14 0.89 Troponin I 0.030 0.033 NT-Pro-B Natriuret Pep 2910 H Impressions: Chest CT 04/23/17 00:00 IMPRESSION: Stable round atelectasis in the left posterior costophrenic sulcus New trace pericardial effusion versus thickened pericardium Chest X-Ray 04/24/17 00:00 IMPRESSION: Left retrocardiac infiltrate consistent with pneumonia. Assessment & Plan - Diagnosis (1) Pneumonia Qualifiers: Pneumonia type: due to unspecified organism Laterality: unspecified laterality Lung location: unspecified part of lung Qualified Code(s) : J18.9 - Pneumonia, unspecified organism Is this a current diagnosis for this admission?: Yes (2) ESRD (end stage renal disease) on dialysis Is this a current diagnosis for this admission?: Yes (3) CAD (coronary artery disease) Qualifiers: Coronary Disease-Associated Artery/Lesion type: unspecified vessel or lesion type [place] vs. transplanted heart: unspecified whether [place] or transplanted heart Associated angina: angina presence unspecified Qualified Code(s): I25.10 - Atherosclerotic heart disease of [place] coronary artery without angina pectoris Is this a current diagnosis for this admission?: Yes (4) History of atrial fibrillation Is this a current diagnosis for this admission?: Yes (5) Hypothyroidism Qualifiers: Hypothyroidism type: acquired Qualified Code(s): E03.9 - Hypothyroidism, unspecified Is this a current diagnosis for this admission?: Yes (6) Urticaria Is this a current diagnosis for this admission?: YesPlan: Stop cefepime
[2017-04-26] MEDS ORDERED: PREDNISONE 20 MG TABLET PO ONE (15:30)
[2017-04-26] MEDS: DIPHENHYDRAMINE HCL 25 MG CAPSULE PO PRN (15:48)
[2017-04-26] MEDS: POLYETHYLENE GLYCOL 3350 POWDER 17 GM/1 PACKET PO SCH (17:07)
[2017-04-26] MEDS: INSULIN GLARGINE,HUM.REC.ANLOG 300 UNIT/3 ML INSULN.PEN SUBCUT SCH (22:11)
[2017-04-27] MEDS: DIPHENHYDRAMINE HCL 25 MG CAPSULE PO PRN (00:36)
[2017-04-27] MEDS: INSULIN LISPRO 100 UNIT/ML 3 ML VIAL SUBCUT PRN ×3 (05:55→22:04)
[2017-04-27 06:10] LABS: ABSOLUTE LYMPHOCYTES (AUTO) 0.7 10^3/uL (0.5-4.7); ABSOLUTE MONOCYTES (AUTO) 0.2 10^3/uL (0.1-1.4); BASOPHILS % (AUTO) 0.2 % (0-2); EOSINOPHILS % (AUTO) 0.2 % (0-6); HEMATOCRIT 27.9 % (37.9-51.0); HEMOGLOBIN 9.2 g/dL (13.5-17.0); HGB HCT DIFFERENCE -0.3; LYMPHOCYTES % (AUTO) 11.8 % (13-45); MEAN CORPUSCULAR HEMOGLOBIN 30.4 pg (27.0-33.4); MEAN CORPUSCULAR HGB CONC 32.9 g/dL (32.0-36.0); MEAN CORPUSCULAR VOLUME 93 fl (80-97); MONOCYTES % (AUTO) 3.8 % (3-13); RED BLOOD COUNT 3.01 10^6/uL (4.35-5.55); RED CELL DISTRIBUTION WIDTH 13.7 % (11.5-14.0); WHITE BLOOD COUNT 5.9 10^3/uL (4.0-10.5)
[2017-04-27 06:26] LABS: ANION GAP 16 (5-19); BLOOD UREA NITROGEN 64 mg/dL (7-20); CALCIUM 8.4 mg/dL (8.4-10.2); CARBON DIOXIDE 23 mmol/L (22-30); CHLORIDE 92 mmol/L (98-107); POTASSIUM 5.9 mmol/L (3.6-5.0); SODIUM 131.3 mmol/L (137-145)
[2017-04-27 06:38] LABS: GLUCOSE 440 mg/dL (75-110)
--- NOTE | 2017-04-27 08:47 | RADIOLOGY REPORT (SQ) ---
EXAM DESCRIPTION: CHEST PA/LAT COMPLETED DATE/TIME: 04/27/2017 8:36 am REASON FOR STUDY: pnemonia COMPARISON: Two-view chest 04/24/2017, 04/22/2017 CT chest 10/22/2016, 04/23/2017 EXAM PARAMETERS: NUMBER OF VIEWS: two views TECHNIQUE: Digital Frontal and Lateral radiographic views of the chest acquired. RADIATION DOSE: NA LIMITATIONS: none FINDINGS: LUNGS AND PLEURA: Stable left round atelectasis in the posterior costophrenic sulcus uncha nged from prior lung biopsy and PET-CT/CT exams. No acute infiltrates. No pleural effusion. No pneumothorax. MEDIASTINUM AND HILAR STRUCTURES: No masses or contour abnormalities. HEART AND VASCULAR STRUCTURES: Stable mild cardiomegaly BONES: No acute findings. HARDWARE: None in the chest. OTHER: No other significant finding. IMPRESSION: Chronic consolidation or round atelectasis in the left posterior lung base unchanged. No new infiltrates. TECHNICAL DOCUMENTATION: JOB ID: [id number] [employer]- All Rights Reserved
[2017-04-27] MEDS: HEPARIN SOD (PORCINE) 5,000 UNIT/ML 1 ML SYRINGE SUBCUT SCH ×2 (09:58→22:15)
[2017-04-27] MEDS: PREGABALIN 100 MG CAPSULE PO SCH ×2 (09:58→22:16)
[2017-04-27] MEDS: DOCUSATE SODIUM 100 MG CAPSULE PO SCH ×2 (09:58→17:56)
--- NOTE | 2017-04-27 12:34 | PDOC PROGRESS REPORT ---
Subjective Progress Note for:: 04/27/17 Subjective:: Patient is currently doing fair. Patient's denied any chest pain denied any shortness of the breath. Patients develop some rash in the upper and lower extremity not sure which antibiotic currently stop the vancomycin and cefepime Physical Exam Vital Signs: Temp Pulse Resp BP Pulse Ox 98.0 F 65 20 110/51 L 95 04/27/17 07:28 04/27/17 07:28 04/27/17 07:28 04/27/17 07:28 04/27/17 07:28 Intake & Output 04/26/17 04/27/17 04/28/17 06:59 06:59 06:59 Intake Total 1421 2910 Output Total 450 0 Balance 971 2910 Weight 143.6 kg 147 kg General appearance: PRESENT: no acute distress, well-developed, well-nourished Head exam: PRESENT: atraumatic, normocephalic Eye exam: PRESENT: conjunctiva pink, EOMI, PERRLA. ABSENT: scleral icterus Ear exam: PRESENT: normal external ear exam Mouth exam: PRESENT: moist, tongue midline Neck exam: PRESENT: full ROM. ABSENT: carotid bruit, JVD, lymphadenopathy, thyromegaly Respiratory exam: PRESENT: clear to auscultation nelson Cardiovascular exam: PRESENT: RRR. ABSENT: diastolic murmur, rubs, systolic murmur Pulses: PRESENT: normal dorsalis pedis pul, +2 pedal pulses bilateral Vascular exam: PRESENT: normal capillary refill GI/Abdominal exam: PRESENT: normal bowel sounds, soft. ABSENT: distended, guarding, mass, organolmegaly, rebound, tenderness Rectal exam: PRESENT: deferred Neurological exam: PRESENT: alert, awake, oriented to person, oriented to place , oriented to time, oriented to situation, CN II-XII grossly intact. ABSENT: motor sensory deficit Psychiatric exam: PRESENT: appropriate affect, normal mood. ABSENT: homicidal ideation, suicidal ideation Skin exam: PRESENT: dry, intact, warm, other. ABSENT: cyanosis, rash Additional comments: Small papular rash on the upper and lower extremities most likely a drug reactions Results Laboratory Results: 04/27/17 05:35 04/27/17 05:35 04/27/17 04/27/17 05:35 05:35 WBC 5.9 RBC 3.01 L Hgb 9.2 L Hct 27.9 L MCV 93 MCH 30.4 MCHC 32.9 RDW 13.7 Plt Count 308 Seg Neutrophils % 84.0 H Lymphocytes % 11.8 L Monocytes % 3.8 Eosinophils % 0.2 Basophils % 0.2 Absolute Neutrophils 5.0 Absolute Lymphocytes 0.7 Absolute Monocytes 0.2 Absolute Eosinophils 0.0 Absolute Basophils 0.0 Sodium 131.3 L Potassium 5.9 H Chloride 92 L Carbon Dioxide 23 Anion Gap 16 BUN 64 H Creatinine 7.30 H Est GFR ( Amer) 9 L Est GFR (Non-Af Amer) 8 L Glucose 440 H* Calcium 8.4 04/25/17 08:35 Catheterized Urine Urine Culture - Final NO GROWTH 2 DAYS 04/22/17 04/22/17 04/23/17 21:08 21:08 03:23 Creatine Kinase 62 55 CK-MB (CK-2) 1.30 Troponin I 0.034 NT-Pro-B Natriuret Pep 04/23/17 04/23/17 04/23/17 03:23 10:50 10:50 Creatine Kinase 48 L CK-MB (CK-2) 1.14 0.89 Troponin I 0.030 0.033 NT-Pro-B Natriuret Pep 2910 H Impressions: Chest CT 04/23/17 00:00 IMPRESSION: Stable round atelectasis in the left posterior costophrenic sulcus New trace pericardial effusion versus thickened pericardium Chest X-Ray 04/27/17 00:00 IMPRESSION: Chronic consolidation or round atelectasis in the left posterior lung base unchanged. No new infiltrates. Assessment & Plan - Diagnosis (1) Left lower lobe pneumonia Qualifiers: Pneumonia type: due to unspecified organism Qualified Code(s): J18.1 - Lobar pneumonia, unspecified organism Is this a current diagnosis for this admission?: YesPlan: At this point will continues to p.oVito Booth's repeat the chest x-ray in a one- week unless patient started running a fever (2) Acute and chronic respiratory failure with hypoxia Plan: Currently stable (3) Diabetes mellitus Qualifiers: Diabetes mellitus type: type 2 Diabetes mellitus complication status: with kidney complications Diabetes mellitus residential insulin use: with predatory animal exterminator use Is this a current diagnosis for this admission?: YesPlan: Continues a sliding scale and the regular medications (4) ESRD (end stage renal disease) on dialysis Is this a current diagnosis for this admission?: YesPlan: Consult the nephrology for further evaluation (5) COPD (chronic obstructive pulmonary disease) Qualifiers: COPD type: unspecified COPD Qualified Code(s): J44.9 - Chronic obstructive pulmonary disease, unspecified Is this a current diagnosis for this admission?: YesPlan: Put the patient on nebulizer treatment (6) Sleep apnea syndrome Qualifiers: Sleep apnea type: unspecified type Qualified Code(s): G47.30 - Sleep apnea, unspecified Is this a current diagnosis for this admission?: YesPlan: Using the CPAP at night patient is a noncompliance with the CPAP machine at night (7) Rash Is this a current diagnosis for this admission?: YesPlan: Most likely a drug-related but not sure which antibioticWe hold the cefepime and vancomycin'sWe will treat the patient with a steroid and Benadryl - Time Time Spent with patient: 15-24 minutes Medications reviewed and adjusted accordingly: Yes Anticipated discharge: Home Within: within 24 hours - Inpatient Certification Medical Necessity: Need Close Monitoring Due to Risk of Patient Decompensation, Need for IV Antibiotics 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 Hanley
--- NOTE | 2017-04-27 14:23 | PDOC PROGRESS REPORT ---
Subjective Progress Note for:: 04/27/17 Subjective:: Patient seen on hemodialysis today. He is undergoing dialysis without any issues. He has developed an allergic maculopapular rash couple of days ago presumed to be an allergic reaction to either cefepime or vancomycin both of which has been discontinued by Dr. Feldman. No complaints of any fever or chills. He is now continuing on the levofloxacin without any issues. Denies any history of chest pain shortness of breath. Vital signs are stable. Orders were discussed with the treating nurse Andria. Physical Exam Vital Signs: Temp Pulse Resp BP Pulse Ox 98.0 F 65 20 110/51 L 95 04/27/17 07:28 04/27/17 07:28 04/27/17 07:28 04/27/17 07:28 04/27/17 07:28 Intake & Output 04/26/17 04/27/17 04/28/17 06:59 06:59 06:59 Intake Total 1421 2910 459 Output Total 450 0 0 Balance 971 2910 459 Weight 143.6 kg 147 kg General appearance: PRESENT: no acute distress Respiratory exam: PRESENT: clear to auscultation nelson, symmetrical. ABSENT: crackles, rhonchi, tachypnea Cardiovascular exam: PRESENT: RRR, +S1, +S2 GI/Abdominal exam: PRESENT: soft. ABSENT: distended, guarding Extremities exam: PRESENT: pedal edema - Trace Neurological exam: PRESENT: alert, awake, oriented to person, oriented to place , oriented to time Results Laboratory Results: 04/27/17 05:35 04/27/17 05:35 04/27/17 04/27/17 05:35 05:35 WBC 5.9 RBC 3.01 L Hgb 9.2 L Hct 27.9 L MCV 93 MCH 30.4 MCHC 32.9 RDW 13.7 Plt Count 308 Seg Neutrophils % 84.0 H Lymphocytes % 11.8 L Monocytes % 3.8 Eosinophils % 0.2 Basophils % 0.2 Absolute Neutrophils 5.0 Absolute Lymphocytes 0.7 Absolute Monocytes 0.2 Absolute Eosinophils 0.0 Absolute Basophils 0.0 Sodium 131.3 L Potassium 5.9 H Chloride 92 L Carbon Dioxide 23 Anion Gap 16 BUN 64 H Creatinine 7.30 H Est GFR ( Amer) 9 L Est GFR (Non-Af Amer) 8 L Glucose 440 H* Calcium 8.4 04/25/17 08:35 Catheterized Urine Urine Culture - Final NO GROWTH 2 DAYS 04/22/17 04/22/17 04/23/17 21:08 21:08 03:23 Creatine Kinase 62 55 CK-MB (CK-2) 1.30 Troponin I 0.034 NT-Pro-B Natriuret Pep 04/23/17 04/23/17 04/23/17 03:23 10:50 10:50 Creatine Kinase 48 L CK-MB (CK-2) 1.14 0.89 Troponin I 0.030 0.033 NT-Pro-B Natriuret Pep 2910 H Impressions: Chest CT 04/23/17 00:00 IMPRESSION: Stable round atelectasis in the left posterior costophrenic sulcus New trace pericardial effusion versus thickened pericardium Chest X-Ray 04/27/17 00:00 IMPRESSION: Chronic consolidation or round atelectasis in the left posterior lung base unchanged. No new infiltrates. Assessment & Plan - Diagnosis (1) Anemia, chronic renal failure Plan: Adjust erythropoietin (2) Diabetes mellitus Qualifiers: Diabetes mellitus type: type 2 Diabetes mellitus complication status: with kidney complications Diabetes mellitus custodial insulin use: with custodial use Is this a current diagnosis for this admission?: YesPlan: Advised the need for tight diabetic control. (3) ESRD (end stage renal disease) on dialysis Is this a current diagnosis for this admission?: YesPlan: Patient is undergoing dialysis without any issues. Vital signs are stable. We will plan to remove approximately 1 L of fluid. Orders were again discussed with Andria (4) Left lower lobe pneumonia Qualifiers: Pneumonia type: due to unspecified organism Qualified Code(s): J18.1 - Lobar pneumonia, unspecified organism Is this a current diagnosis for this admission?: YesPlan: Currently on levofloxacin after discontinuation of cefepime and vancomycin in the face of allergic maculopapular rash. (5) Allergic reaction caused by a drug Plan: As per Dr. Feldman. Most likely either cefepime or vancomycin. (6) Hyperkalemia Plan: Should respond to appropriate dialysis potassium bath. Advised on a low potassium diet and to be compliant with diet
[2017-04-27] MEDS: POLYETHYLENE GLYCOL 3350 POWDER 17 GM/1 PACKET PO SCH (17:57)
[2017-04-27] MEDS: IPRATROPIUM/ALBUTEROL 0.5-2.5 MG/3 ML AMPUL NEB PRN (20:39)
[2017-04-27] MEDS: INSULIN GLARGINE,HUM.REC.ANLOG 300 UNIT/3 ML INSULN.PEN SUBCUT SCH (22:04)
[2017-04-28 05:06] LABS: ANION GAP 15 (5-19); BLOOD UREA NITROGEN 50 mg/dL (7-20); CALCIUM 8.3 mg/dL (8.4-10.2); CARBON DIOXIDE 28 mmol/L (22-30); CHLORIDE 92 mmol/L (98-107); CREATININE RESULT 5.36 mg/dL (0.52-1.25); SODIUM 134.5 mmol/L (137-145)
[2017-04-28 05:29] LABS: GLUCOSE 553 mg/dL (75-110); POTASSIUM 4.1 mmol/L (3.6-5.0)
[2017-04-28] MEDS: INSULIN LISPRO 100 UNIT/ML 3 ML VIAL SUBCUT PRN ×4 (05:35→21:58)
[2017-04-28] MEDS: IPRATROPIUM/ALBUTEROL 0.5-2.5 MG/3 ML AMPUL NEB PRN (08:52)
[2017-04-28] MEDS ORDERED: LEVOFLOXACIN 500 MG TABLET PO SCH (10:00)
[2017-04-28] MEDS: PREGABALIN 100 MG CAPSULE PO SCH ×2 (10:51→21:58)
[2017-04-28] MEDS: DOCUSATE SODIUM 100 MG CAPSULE PO SCH ×2 (10:51→18:04)
[2017-04-28] MEDS: HEPARIN SOD (PORCINE) 5,000 UNIT/ML 1 ML SYRINGE SUBCUT SCH ×2 (10:52→21:58)
[2017-04-28] MEDS: INSULIN GLARGINE,HUM.REC.ANLOG 300 UNIT/3 ML INSULN.PEN SUBCUT SCH ×2 (10:52→20:29)
--- NOTE | 2017-04-28 11:56 | PDOC PROGRESS REPORT ---
Subjective Progress Note for:: 04/28/17 Subjective:: Patient's blood sugars were running high and patient is eating some outside food alsoBut patient supposed to take the Lantus 55 units in the morning and he is not getting insulin in the hospital only getting 50 units at night. Patient' s otherwise denied any chest pain denied any shortness of the breathPatient having no fever Patients desperately wants to go home Patient's address is currently stable Physical Exam Vital Signs: Temp Pulse Resp BP Pulse Ox 97.6 F 72 20 130/50 H 100 04/28/17 11:11 04/28/17 11:11 04/28/17 11:11 04/28/17 11:11 04/28/17 11:11 Intake & Output 04/27/17 04/28/17 04/29/17 06:59 06:59 06:59 Intake Total 2910 1027 Output Total 0 1900 Balance 2910 -873 Weight 147 kg 148 kg General appearance: PRESENT: no acute distress, well-developed, well-nourished Head exam: PRESENT: atraumatic, normocephalic Eye exam: PRESENT: conjunctiva pink, EOMI, PERRLA. ABSENT: scleral icterus Ear exam: PRESENT: normal external ear exam Mouth exam: PRESENT: moist, tongue midline Neck exam: PRESENT: full ROM. ABSENT: carotid bruit, JVD, lymphadenopathy, thyromegaly Respiratory exam: PRESENT: clear to auscultation nelson Cardiovascular exam: PRESENT: RRR. ABSENT: diastolic murmur, rubs, systolic murmur Pulses: PRESENT: normal dorsalis pedis pul, +2 pedal pulses bilateral Vascular exam: PRESENT: normal capillary refill GI/Abdominal exam: PRESENT: normal bowel sounds, soft. ABSENT: distended, guarding, mass, organolmegaly, rebound, tenderness Rectal exam: PRESENT: deferred Neurological exam: PRESENT: alert, awake, oriented to person, oriented to place , oriented to time, oriented to situation, CN II-XII grossly intact. ABSENT: motor sensory deficit Psychiatric exam: PRESENT: appropriate affect, normal mood. ABSENT: homicidal ideation, suicidal ideation Skin exam: PRESENT: dry, intact, warm, other. ABSENT: cyanosis, rash Additional comments: Maculopapular rash in upper and lower extremities and on the back Results Laboratory Results: 04/27/17 05:35 04/28/17 04:14 04/28/17 04:14 Sodium 134.5 L Potassium 4.1 D Chloride 92 L Carbon Dioxide 28 Anion Gap 15 BUN 50 H Creatinine 5.36 H Est GFR ( Amer) 13 L Est GFR (Non-Af Amer) 11 L Glucose 553 H* Calcium 8.3 L 04/26/17 13:17 Sputum Gram Stain - Final 04/26/17 13:17 Sputum Sputum Culture - Final Yeast, Not Fabiola Albicans Greatly Reduced Normal [place] 04/25/17 08:35 Catheterized Urine Urine Culture - Final NO GROWTH 2 DAYS 04/22/17 04/22/17 04/23/17 21:08 21:08 03:23 Creatine Kinase 62 55 CK-MB (CK-2) 1.30 Troponin I 0.034 NT-Pro-B Natriuret Pep 04/23/17 04/23/17 04/23/17 03:23 10:50 10:50 Creatine Kinase 48 L CK-MB (CK-2) 1.14 0.89 Troponin I 0.030 0.033 NT-Pro-B Natriuret Pep 2910 H Impressions: Chest CT 04/23/17 00:00 IMPRESSION: Stable round atelectasis in the left posterior costophrenic sulcus New trace pericardial effusion versus thickened pericardium Chest X-Ray 04/27/17 00:00 IMPRESSION: Chronic consolidation or round atelectasis in the left posterior lung base unchanged. No new infiltrates. Assessment & Plan - Diagnosis (1) Left lower lobe pneumonia Qualifiers: Pneumonia type: due to unspecified organism Qualified Code(s): J18.1 - Lobar pneumonia, unspecified organism Is this a current diagnosis for this admission?: YesPlan: At this point will continues to p.oVito Booth's repeat the chest x-ray in a one- week unless patient started running a fever (2) Acute and chronic respiratory failure with hypoxia Plan: Currently stable (3) Diabetes mellitus Qualifiers: Diabetes mellitus type: type 2 Diabetes mellitus complication status: with kidney complications Diabetes mellitus senior living insulin use: with system administrator use Is this a current diagnosis for this admission?: YesPlan: We will add the Lantus in the morning and continues a sliding scale (4) ESRD (end stage renal disease) on dialysis Is this a current diagnosis for this admission?: YesPlan: Consult the nephrology for further evaluation (5) COPD (chronic obstructive pulmonary disease) Qualifiers: COPD type: unspecified COPD Qualified Code(s): J44.9 - Chronic obstructive pulmonary disease, unspecified Is this a current diagnosis for this admission?: YesPlan: Put the patient on nebulizer treatment (6) Sleep apnea syndrome Qualifiers: Sleep apnea type: unspecified type Qualified Code(s): G47.30 - Sleep apnea, unspecified Is this a current diagnosis for this admission?: YesPlan: Using the CPAP at night patient is a noncompliance with the CPAP machine at night (7) Rash Is this a current diagnosis for this admission?: YesPlan: Most likely a drug-related but not sure which antibioticWe hold the cefepime and vancomycin'sWe will treat the patient with a steroid and Benadryl - Time Time Spent with patient: 15-24 minutes Medications reviewed and adjusted accordingly: Yes Anticipated discharge: Home Within: within 24 hours - Inpatient Certification Medical Necessity: Need Close Monitoring Due to Risk of Patient Decompensation Post Hospital Care: D/C Commercial Sales Specialist Documentation - Plan Summary Plan Summary: Patient still very weak probably need a home health and physical therapy but will get the physical therapy evaluations today we will add the Lantus this morning and continues to monitor the sugar today.Patients wants to go home's patient's otherwise stable if the sugar remained stable throughout today
[2017-04-28] MEDS ORDERED: BISACODYL 10 MG SUPP.RECT PR ONE (17:30)
[2017-04-28] MEDS: POLYETHYLENE GLYCOL 3350 POWDER 17 GM/1 PACKET PO SCH (18:04)
[2017-04-28] MEDS: DIPHENHYDRAMINE HCL 25 MG CAPSULE PO PRN (23:40)
[2017-04-29 07:58] LABS: ANION GAP 15 (5-19); BLOOD UREA NITROGEN 60 mg/dL (7-20); CALCIUM 8.6 mg/dL (8.4-10.2); CARBON DIOXIDE 26 mmol/L (22-30); CHLORIDE 96 mmol/L (98-107); CREATININE RESULT 5.96 mg/dL (0.52-1.25); GLUCOSE 153 mg/dL (75-110); POTASSIUM 4.2 mmol/L (3.6-5.0); SODIUM 136.9 mmol/L (137-145)
[2017-04-29] MEDS ORDERED: INSULIN GLARGINE,HUM.REC.ANLOG 300 UNIT/3 ML INSULN.PEN SUBCUT SCH (08:00)
[2017-04-29] MEDS: IPRATROPIUM/ALBUTEROL 0.5-2.5 MG/3 ML AMPUL NEB PRN (08:35)
--- NOTE | 2017-04-29 09:07 | PDOC DISCHARGE SUMMARY ---
General - Admit/Disc Date/PCP Admission Date/Primary Care Provider: 04/22/17 17:08 PADMINI BOND MD Discharge Date: 04/29/17 - Discharge Diagnosis (1) Left lower lobe pneumonia Is this a current diagnosis for this admission?: Yes Summary: Currently all stable continues to Levaquin for another 5 days every 48 hours.Patients probably needs to see the monitoring again as outpatients for further evaluations of that lung mass which patient already have a evaluations last year with the PET scan and the biopsy and was all stableDiscussed with the patient and the family about all this follow-up plan (2) Acute and chronic respiratory failure with hypoxia Summary: Currently all resolved (3) Diabetes mellitus Is this a current diagnosis for this admission?: Yes Summary: Currently stable (4) ESRD (end stage renal disease) on dialysis Is this a current diagnosis for this admission?: Yes Summary: Follow with the hemodialysis per nephrology (5) COPD (chronic obstructive pulmonary disease) Is this a current diagnosis for this admission?: Yes Summary: Continues as needed nebulizer treatment (6) Sleep apnea syndrome Is this a current diagnosis for this admission?: Yes Summary: Discussed with the patient about compliance of the using the CPAP machine (7) Rash Is this a current diagnosis for this admission?: Yes Summary: Most likely a drug reactions but currently all resolving not sure about which antibiotic while patient was in the multiple antibiotic in the hospital - Additional Information Resuscitation Status: Full Code Discharge Diet: Diabetic Discharge Activity: Activity As Tolerated Home Medications: Cyclobenzaprine HCl [Flexeril 5 mg Tablet] 5 mg PO BIDP PRN 04/22/17 Pregabalin [Lyrica] 200 mg PO BID 04/22/17 Tramadol HCl [Ultram 50 mg Tablet] 50 mg PO Q12HP PRN 04/22/17 Insulin Glargine,Hum.rec.anlog [Lantus Insulin 100 Unit/mL] 50 unit SUBCUT BID # 1 insuln.pen 04/29/17 Levofloxacin [Levaquin 250 mg Tablet] 250 mg PO DAILY #5 tablet 04/29/17 History of Present Illness History of Present Illness: RITA GAFFNEY is a 57 year old male This is a 57-year-old male with a history of the end-stage renal disease on hemodialysis and history of the hypertensions hyperlipidemia and a chronic neuropathy came to the emergency department with the complaining of shortness of the breath and cough and congestions with the green sputum with the low- grade fever. For the last 3 days and getting more worse. Patient's initial workup in the emergency department suggest most likely a left lower lobe pneumonia and patient was admitting in the hospital for IV antibiotic and further evaluations when I saw the patient in dialysis Patients denied any chest pain denied any shortness of the breath. Patient is recently have a incision and drainage done on the right upper thigh for the abscess to the [facility] and currently the wound looks pretty stable patient also see a Dr. Dial Outpatient and recently with stress test done was all negative Hospital Course Hospital Course: This is a 57-year-old male present in the emergency department with a complaint of shortness of the breath cough and congestions and diagnosed with a left lower lobe pneumoniaIV antibiotic including the cefepimeAnd Vancomycin and Levaquin due to the patient recently a hospital admissions in the [facility] for the abscess in the right thigh for possible hospital-acquired pneumonia Patient's response very well and the patient's developed mild rash and to antibiotic was DC Patient's underwent for the hemodialysis Patient was CT of the chest was done which is pretty much stable with a persistent spot in the lung which is evaluated already in the past Patient's remained afebrile all culture is negative and patient's very desperate to go home's at this time's discussed with the patient and the on the bedside about all test result and the follow-up Patient's following office in 1 week Physical Exam Vital Signs: Temp Pulse Resp BP Pulse Ox 98.7 F 78 16 116/54 L 97 04/29/17 08:26 04/29/17 08:35 04/29/17 08:35 04/29/17 08:26 04/29/17 08:35 Intake & Output 04/28/17 04/29/17 04/30/17 06:59 06:59 06:59 Intake Total 1027 1446 Output Total 1900 376 Balance -873 1070 Weight 148 kg 148.7 kg General appearance: PRESENT: no acute distress, well-developed, well-nourished Head exam: PRESENT: atraumatic, normocephalic Eye exam: PRESENT: conjunctiva pink, EOMI, PERRLA. ABSENT: scleral icterus Ear exam: PRESENT: normal external ear exam Mouth exam: PRESENT: moist, tongue midline Neck exam: PRESENT: full ROM. ABSENT: carotid bruit, JVD, lymphadenopathy, thyromegaly Respiratory exam: PRESENT: clear to auscultation nelson Cardiovascular exam: PRESENT: RRR. ABSENT: diastolic murmur, rubs, systolic murmur Pulses: PRESENT: normal dorsalis pedis pul, +2 pedal pulses bilateral Vascular exam: PRESENT: normal capillary refill GI/Abdominal exam: PRESENT: normal bowel sounds, soft. ABSENT: distended, guarding, mass, organolmegaly, rebound, tenderness Rectal exam: PRESENT: deferred Neurological exam: PRESENT: alert, awake, oriented to person, oriented to place , oriented to time, oriented to situation, CN II-XII grossly intact. ABSENT: motor sensory deficit Psychiatric exam: PRESENT: appropriate affect, normal mood. ABSENT: homicidal ideation, suicidal ideation Skin exam: PRESENT: dry, intact, warm. ABSENT: cyanosis, rash Results Laboratory Results: 04/27/17 05:35 04/29/17 04:10 04/29/17 04:10 Sodium 136.9 L Potassium 4.2 Chloride 96 L Carbon Dioxide 26 Anion Gap 15 BUN 60 H Creatinine 5.96 H Est GFR ( Amer) 12 L Est GFR (Non-Af Amer) 10 L Glucose 153 H Calcium 8.6 04/24/17 05:20 Blood Blood Culture - Final NO GROWTH IN 5 DAYS 04/23/17 23:39 Blood Blood Culture - Final NO GROWTH IN 5 DAYS 04/26/17 13:17 Sputum Gram Stain - Final 04/26/17 13:17 Sputum Sputum Culture - Final Yeast, Not Fabiola Albicans Greatly Reduced Normal [place] 04/22/17 04/22/17 04/23/17 21:08 21:08 03:23 Creatine Kinase 62 55 CK-MB (CK-2) 1.30 Troponin I 0.034 NT-Pro-B Natriuret Pep 04/23/17 04/23/17 04/23/17 03:23 10:50 10:50 Creatine Kinase 48 L CK-MB (CK-2) 1.14 0.89 Troponin I 0.030 0.033 NT-Pro-B Natriuret Pep 2910 H Impressions: Chest CT 04/23/17 00:00 IMPRESSION: Stable round atelectasis in the left posterior costophrenic sulcus New trace pericardial effusion versus thickened pericardium Chest X-Ray 04/27/17 00:00 IMPRESSION: Chronic consolidation or round atelectasis in the left posterior lung base unchanged. No new infiltrates. Plan Time Spent: Greater than 30 Minutes - Discharge home with the stable conditions and arrange the home health and physical therapy and following a one-week in office and will make arrangement to see her doctor Curseen as outpatient but other than that patient's other medical problem is stable very extensive discussed with the patient and the
[2017-04-29 09:47] VITALS: BP 108/52
== END 2017-04-29 10:22 | disposition home health service (06) | DRG 193 ==
LOC: ER 11:51 → UNDOADMIN 14:33 → EH 14:33 → 3W 20:52 → 3N 04-26 16:25
PROVIDERS: ADMIT Family Medicine; ATTEND Family Medicine
PROC: 5A1D00Z (ICD-10-PCS; 2017-04-22)
PROC: 5A1D00Z (ICD-10-PCS; 2017-04-24)
PROC: 5A1D00Z (ICD-10-PCS; principal; 2017-04-27)
DX: J18.9 Pneumonia, unspecified organism (principal); J96.21 Acute and chronic respiratory failure with hypoxia; N18.6 End stage renal disease; I12.0 Hypertensive chronic kidney disease with stage 5 chronic kidney disease or end stage renal disease; E11.22 Type 2 diabetes mellitus with diabetic chronic kidney disease; D63.1 Anemia in chronic kidney disease; J44.9 Chronic obstructive pulmonary disease, unspecified; R21 Rash and other nonspecific skin eruption; I25.10 Atherosclerotic heart disease of native coronary artery without angina pectoris; H54.42 Blindness, left eye, normal vision right eye; K21.9 Gastro-esophageal reflux disease without esophagitis; M19.90 Unspecified osteoarthritis, unspecified site; F32.9 Major depressive disorder, single episode, unspecified; G47.30 Sleep apnea, unspecified; E78.5 Hyperlipidemia, unspecified; Z79.4 Long term (current) use of insulin; Z79.899 Other long term (current) drug therapy; Z99.2 Dependence on renal dialysis; Z91.15 Patient's noncompliance with renal dialysis; Z91.14 Patient's other noncompliance with medication regimen
CPT/HCPCS: 36415; 71010; 71020; 71250; 80048; 80053; 81001; 82550; 82553; 82607; 82728; 82746; 82962; 83540; 83550; 83880; 84466; 84484; 85025; 85045; 86850; 86900; 86901; 87040; 87070; 87086; 87205; 93005; 93010; 93306; 94660; 96374; 96375; 99285; G8978-GP; G8979-GP; J0692; J1644; J1650; J1815; J1956; J3370; J3490; J7060; J7512; J7620; Q4081

== ENCOUNTER 2018-05-03 02:33 | Inpatient (IN) | payer MEDICARE, MEDICAID ==
[2018-05-03] MEDS ORDERED: ASPIRIN 81 MG TABLET, CHEWABLE PO ONE (02:52)
[2018-05-03] MEDS ORDERED: FENTANYL CITRATE INJ/PF 100 MCG/2 ML AMPUL IV ONE (03:03)
--- NOTE | 2018-05-03 03:05 | ER Document Report ---
ED General - General Chief Complaint: Chest Pain Stated Complaint: CP RADIATED TO BACK Time Seen by Provider: 05/03/18 02:48 Notes: Patient is a 58-year-old male who comes emergency department for chief complaint of chest pain in the center of his chest that radiates through to his back, he states symptoms awoke him from his sleep tonight, states pain is persistent and has not improved at this time. He comes by EMS, he has already taken 324 mg of aspirin and 2 nitroglycerin. He denies injury, shortness breath. He does admit to mild nausea earlier but no vomiting. He has had 3 stents performed in [place]. He also has type 2 diabetes. He denies smoking , recreational drugs. Last stress test was less than a year ago, he follows with [employer] programmer Dr. Dial. Patient also is on dialysis, does home dialysis 6 days a week. When walking to the ambulance patient was going barefoot down his steps and he caused two skin abrasions on the bottom of his right foot. His tetanus is up-to -date within 5 years. TRAVEL OUTSIDE OF THE [place] IN LAST 30 DAYS: No - Related Data Allergies/Adverse Reactions: cayenne pepper fruits Allergy (Intermediate, Verified 10/23/16 02:54) Past Medical History - General Information source: Patient - Social History Smoking Status: Never Smoker Frequency of alcohol use: None Drug Abuse: None Lives with: Family Family History: Arthritis, CAD, COPD, CVA, DM, Hyperlipidemia, Hypertension, Malignancy, Thyroid Disfunction - Past Medical History Cardiac Medical History: Reports: Hx Atrial Fibrillation, Hx Congestive Heart Failure, Hx Coronary Artery Disease, Hx Hypercholesterolemia, Hx Hypertension Denies: Hx Heart Attack Pulmonary Medical History: Reports: Hx COPD, Hx Pneumonia Denies: Hx Asthma, Hx Bronchitis Neurological Medical History: Reports: Hx Cerebrovascular Accident - TIA. Denies: Hx Seizures Endocrine Medical History: Reports: Hx Diabetes Mellitus Type 2, Hx Hypothyroidism Renal/ Medical History: Reports: Hx End Stage Renal Disease, Hx Hemodialysis. Denies: Hx Peritoneal Dialysis GI Medical History: Reports: Hx Gastroesophageal Reflux Disease, Hx Colonoscopy , Hx Endoscopy Musculoskeletal Medical History: Reports Hx Arthritis, Reports Hx Musculoskeletal Trauma Psychiatric Medical History: Reports: Hx Anxiety, Hx Depression Traumatic Medical History: Reports: Hx Fractures - Feet Past Surgical History: Reports: Hx Cardiac Catheterization, Hx Cardiac Surgery - STENTS, Hx Orthopedic Surgery - FEET, SHOULDER, Hx Vascular Surgery - fistula left arm, Other - Many eye surgeries - Immunizations Immunizations up to date: Yes Hx Diphtheria, Pertussis, Tetanus Vaccination: Yes Hx Pneumococcal Vaccination: 09/14/14 Review of Systems - Review of Systems Constitutional: No symptoms reported EENT: No symptoms reported Cardiovascular: See HPI Respiratory: See HPI Gastrointestinal: See HPI Genitourinary: No symptoms reported Male Genitourinary: No symptoms reported Musculoskeletal: No symptoms reported Skin: See HPI Hematologic/Lymphatic: No symptoms reported Neurological/Psychological: No symptoms reported Physical Exam - Vital signs Vitals: Temp Pulse Resp BP Pulse Ox 97.8 F 70 12 99/51 L 98 05/03/18 02:33 05/03/18 02:33 05/03/18 02:05/03/18 02:05/03/18 02:33 - Notes Notes: GENERAL: Alert, mildly ill-appearing, no distress HEAD: Normocephalic, atraumatic. EYES: Pupils equal, round, and reactive to light. Extraocular movements intact. ENT: Oral mucosa moist, tongue midline. Normal oropharyngeal exam NECK: Full range of motion. Supple. Trachea midline. LUNGS: Clear to auscultation bilaterally, no wheezes, rales, or rhonchi. No respiratory distress. There is some reproducible tenderness around the sternum , otherwise unremarkable chest wall examination. HEART: Regular rate and rhythm. No murmur ABDOMEN: Soft, non-tender. Non-distended. Bowel sounds present in all 4 quadrants. EXTREMITIES: Moves all 4 extremities spontaneously. No edema, normal radial and dorsalis pedis pulses bilaterally. No cyanosis. BACK: no cervical, thoracic, lumbar midline tenderness. No saddle anesthesia, normal distal neurovascular exam. NEUROLOGICAL: Alert and oriented x3. Normal speech. [cranial nerves II through XII grossly intact]. PSYCH: Normal affect, normal mood. SKIN: Warm, dry, normal turgor. No rashes or lesions noted. Course - Re-evaluation Re-evalutation: EKG sinus rhythm with no T-wave inversions or ST segment changes in consecutive leads. Patient does have some chest wall tenderness on exam. He appears to not feel good generally, mildly ill-appearing, no distress, no tachycardia, hypotension, or fever. CBC shows mild normocytic anemia. Chemistry shows borderline bicarbonate, borderline anion gap, expected renal functioning, nonspecific. Mild hyperglycemia. Troponin is indeterminate at 0.02, lower than patient's usual. Chest x-ray consistent with pneumonia. Initially patient not reporting any symptoms of pneumonia but when I asked if he had any sick symptoms on reevaluation patient states that he had a fever up to 102 within the past 2 days and he has generally felt ill for a week. No hypoxia, no hypotension, no tachycardia. Blood culture sent, given Rocephin and doxycycline. Patient is asking to go home, discussed completion of workup, patient states agreement with staying to get his troponin rechecked and then he states he would like to go home. Chemistry hemolyzed, troponin hemolyzed, blood sugar checked, patient given insulin. 05/03/18 07:20 Handoff report given to Dr. Bond pending repeat BMP and troponin. - Vital Signs Vital signs: Temp Pulse Resp BP Pulse Ox 97.8 F 70 12 119/48 L 98 05/03/18 02:33 05/03/18 02:33 05/03/18 06:31 05/03/18 06:31 05/03/18 06:31 - Laboratory Result Diagrams: 05/03/18 03:00 05/03/18 03:00 Laboratory results interpreted by me: 05/03/18 05/03/18 05/03/18 03:00 03:00 06:49 RBC 3.65 L Hgb 11.3 L Hct 33.3 L RDW 15.1 H Chloride 97 L Carbon Dioxide 21 L Anion Gap 20 H BUN 71 H Creatinine 8.58 H Est GFR ( Amer) 8 L Est GFR (Non-Af Amer) 6 L Glucose 251 H POC Glucose 251 H Calcium 7.1 L Direct Bilirubin 0.5 H AST 14 L ALT 19 L Discharge - Discharge Clinical Impression: Chest pain Qualifiers: Chest pain type: unspecified Qualified Code(s): R07.9 - Chest pain, unspecified Pneumonia Qualifiers: Pneumonia type: due to unspecified organism Laterality: left Lung location: lower lobe of lung Qualified Code(s): J18.1 - Lobar pneumonia, unspecified organism Tear of skin of plantar aspect of foot Qualifiers: Encounter type: initial encounter Laterality: right Qualified Code(s): S91.311A - Laceration without foreign body, right foot, initial encounter Condition: Stable Disposition: HOME, SELF-CARE Additional Instructions: Your evaluation is consistent with pneumonia. Take antibiotic as prescribed. Please follow-up with your primary care provider within the next 2 days for additional evaluation and management. Change the dressings on the skin tears, apply topical antibiotic, clean with soap and water. Have this rechecked as well. Return if you worsen in anyway including difficulty breathing, passing out, spiking fever, or any other concerning or worsening symptoms. Prescriptions: Doxycycline Hyclate 100 mg PO BID #14 capsule Referrals: ELIJAH BOND MD [Primary Care Provider] - Follow up as needed
[2018-05-03 03:17] LABS: ABSOLUTE BASOPHILS # (AUTO) 0.1 10^3/uL (0.0-0.2); ABSOLUTE EOSINOPHILS # (AUTO) 0.2 10^3/uL (0.0-0.6); ABSOLUTE LYMPHOCYTES (AUTO) 1.8 10^3/uL (0.5-4.7); ABSOLUTE MONOCYTES (AUTO) 0.6 10^3/uL (0.1-1.4); ABSOLUTE NEUT (AUTO) 6.8 10^3/uL (1.7-8.2); BASOPHILS % (AUTO) 0.6 % (0-2); EOSINOPHILS % (AUTO) 1.8 % (0-6); HEMATOCRIT 33.3 % (37.9-51.0); HEMOGLOBIN 11.3 g/dL (13.5-17.0); LYMPHOCYTES % (AUTO) 18.8 % (13-45); MEAN CORPUSCULAR VOLUME 91 fl (80-97); PLATELET COUNT 260 10^3/uL (150-450); RED BLOOD COUNT 3.65 10^6/uL (4.35-5.55); RED CELL DISTRIBUTION WIDTH 15.1 % (11.5-14.0); SEGMENTED NEUTROPHILS % (AUTO) 72.8 % (42-78); TOTAL CELLS COUNTED % (AUTO) 100 %; WHITE BLOOD COUNT 9.4 10^3/uL (4.0-10.5)
[2018-05-03 03:36] LABS: ALANINE AMINOTRANSFERASE 19 U/L (21-72); ALBUMIN 3.6 g/dL (3.5-5.0); ALKALINE PHOSPHATASE 81 U/L (38-126); ASPARTATE AMINO TRANSFERASE 14 U/L (17-59); BILIRUBIN,DIRECT 0.5 mg/dL (0.0-0.4); BILIRUBIN,TOTAL 0.5 mg/dL (0.2-1.3); BLOOD UREA NITROGEN 71 mg/dL (7-20); CALCIUM 7.1 mg/dL (8.4-10.2); CREATINE KINASE 99 U/L (55-170); GLUCOSE 251 mg/dL (75-110); TOTAL PROTEIN 6.5 g/dL (6.3-8.2)
[2018-05-03 03:41] LABS: CARBON DIOXIDE 21 mmol/L (22-30); CHLORIDE 97 mmol/L (98-107); SODIUM 137.8 mmol/L (137-145)
[2018-05-03 03:48] LABS: CREATINE KINASE MB 2.22 ng/mL (<4.55); TROPONIN I 0.021 ng/mL
[2018-05-03 03:50] LABS: ANION GAP 20 (5-19)
--- NOTE | 2018-05-03 04:02 | RADIOLOGY REPORT (SQ) ---
EXAM DESCRIPTION: XR CHEST 1 VIEW COMPLETED DATE/TME: 05/03/2018 02:53 CLINICAL HISTORY: 58 years Male, chest pain COMPARISON: July 15, 2017. CT, 04/23/2017, report only. NUMBER OF VIEWS/TECHNIQUE: 1/AP FINDINGS: Moderate lung volume, moderate medial left lower lobear consolidate, mildly enlarged cardiac silhouette, metallic anchor of the right humeral head, and intact bony thorax. IMPRESSION: Moderate left lower lobar pneumonia. Recommend CR/CT surveillance including at 7-12 weeks following initiation of clinically warranted therapy.
[2018-05-03] MEDS ORDERED: CEFTRIAXONE INJ 1000 MG VIAL IV ONE (04:08)
[2018-05-03] MEDS ORDERED: DOXYCYCLINE HYCLATE 100 MG TABLET PO ONE (04:08)
[2018-05-03] MEDS ORDERED: OXYCODONE-ACETAMINOPHEN 5-325 MG TABLET PO ONE (06:40)
[2018-05-03] MEDS ORDERED: INSULIN REG, HUMAN 100 UNIT/ML 3 ML VIAL (PYX) SUBCUT ONE (06:50)
[2018-05-03 07:27] LABS: BLOOD UREA NITROGEN 70 mg/dL (7-20); CALCIUM 7.1 mg/dL (8.4-10.2); GLUCOSE 236 mg/dL (75-110); POTASSIUM 3.8 mmol/L (3.6-5.0)
[2018-05-03 07:33] LABS: CARBON DIOXIDE 21 mmol/L (22-30); CHLORIDE 97 mmol/L (98-107)
[2018-05-03 07:36] LABS: ANION GAP 21 (5-19)
--- NOTE | 2018-05-03 07:45 | EKG REPORT ---
SEVERITY:- NORMAL ECG - SINUS RHYTHM : Confirmed by: Elizabeth Dial 03-May-2018 07:44:50
--- NOTE | 2018-05-03 08:16 | ER Document Report ---
Doctor's Note Notes: 05/03/18 08:15 Patient was seen earlier this morning. Has pneumonia diagnosis. Patient has a port score of 89 which warrants either inpatient or outpatient treatment. I am a little bit nervous because patient still has chest pain at this time. His cardiac troponins have actually come down. He is not hypoxic or tachycardic. Will consult with his primary care doctor to see if he will admit him to the hospital Discharge - Discharge Clinical Impression: Chest pain Qualifiers: Chest pain type: unspecified Qualified Code(s): R07.9 - Chest pain, unspecified Pneumonia Qualifiers: Pneumonia type: due to unspecified organism Laterality: left Lung location: lower lobe of lung Qualified Code(s): J18.1 - Lobar pneumonia, unspecified organism Tear of skin of plantar aspect of foot Qualifiers: Encounter type: initial encounter Laterality: right Qualified Code(s): S91.311A - Laceration without foreign body, right foot, initial encounter Condition: Stable Disposition: ADMITTED INPATIENT Admitting Provider: [facility] Admitted: [facility] Additional Instructions: Your evaluation is consistent with pneumonia. Take antibiotic as prescribed. Please follow-up with your primary care provider within the next 2 days for additional evaluation and management. Change the dressings on the skin tears, apply topical antibiotic, clean with soap and water. Have this rechecked as well. Return if you worsen in anyway including difficulty breathing, passing out, spiking fever, or any other concerning or worsening symptoms. Prescriptions: Doxycycline Hyclate 100 mg PO BID #14 capsule Referrals: ELIJAH BOND MD [Primary Care Provider] - Follow up as needed ED General - General Chief Complaint: Chest Pain Stated Complaint: CP RADIATED TO BACK Time Seen by Provider: 05/03/18 02:48 Notes: Patient was seen earlier this morning. Has pneumonia diagnosis. Patient has a port score of 89 which warrants either inpatient or outpatient treatment. I am a little bit nervous because patient still has chest pain at this time. His cardiac troponins have actually come down. He is not hypoxic or tachycardic. Will consult with his primary care doctor to see if he will admit him to the hospital 05/03/18 08:27 Dr. Bond is seen patient. He wants to get a CT of the chest at this time. He is visiting with the patient. Will admit to the hospital for further treatment TRAVEL OUTSIDE OF THE [place] IN LAST 30 DAYS: No - Related Data Allergies/Adverse Reactions: cayenne pepper fruits Allergy (Intermediate, Verified 05/03/18 08:24)
[2018-05-03] MEDS ORDERED: ACETAMINOPHEN 325 MG TABLET PO PRN (08:37)
[2018-05-03] MEDS ORDERED: IPRATROPIUM/ALBUTEROL 0.5-2.5 MG/3 ML AMPUL NEB PRN (08:37)
--- NOTE | 2018-05-03 09:36 | RADIOLOGY REPORT (SQ) ---
EXAM DESCRIPTION: CT CHEST WITHOUT COMPLETED DATE/TIME: 05/03/2018 9:21 am REASON FOR STUDY: chest pain COMPARISON: 04/23/2017 TECHNIQUE: CT scan performed of the chest without intravenous contrast. Images reviewed with lung, soft tissue and bone windows. Reconstructed coronal and sagittal MPR images reviewed. All images st ored on PACS. All CT scanners at this facility use dose modulation, iterative reconstruction, and/or weight based d osing when appropriate to reduce radiation dose to as low as reasonably achievable (ALARA). [facility]: Dose Right [facility]: CareDose [facility]: Dose Right [facility]: Teradose 4D [facility]: [employer] RADIATION DOSE: CT Rad equipment meets quality standard of care and radiation dose reduction techniq ues were employed. CTDIvol: 21.1 mGy. DLP: 823 mGy-cm. mGy. LIMITATIONS: No technical limitations. FINDINGS: LUNGS AND PLEURA: Trace left pleural effusion. Stable dependent round atelectasis left lo wer lobe. No nodules or masses. HILAR AND MEDIASTINAL STRUCTURES: No identified masses or abnormal nodes. No obvious aneurysm. HEART AND VASCULAR STRUCTURES: No aneurysm. No pericardial effusion. UPPER ABDOMEN: No acute findings. Limited exam. THYROID AND OTHER SOFT TISSUES: No masses. No adenopathy. BONES: No significant finding. HARDWARE: None in the chest. OTHER: No other significant findings. IMPRESSION: Stable, chronic small left pleural effusion and rounded atelectasis. TECHNICAL DOCUMENTATION: JOB ID: [id number] Quality ID # [id number]: Final reports with documentation of one or more dose reduction techniques (e.g., Au tomated exposure control, adjustment of the mA and/or kV according to patient size, use of iterative reconstruction technique) 2010 [employer]- All Rights Reserved Reading location - IP/workstation name: [email or web address]
--- NOTE | 2018-05-03 09:52 | PDOC H&P ---
History of Present Illness Admission Date/PCP: 05/03/18 08:34 PADMINI BOND MD Patient complains of: Chest pain History of Present Illness: RITA GAFFNEY is a 58 year old male This is a 58-year-old male with end-stage renal disease on currently on home hemodialysis and a history of coronary artery disease status post stent placement history of sleep apnea history of type 2 diabetes and a chronic neuropathyCame to the emergency department with a complaint for chest pain started last night patients took 1 aspirin and 2 nitroglycerin in patients receiving some pain medications in patients feeling better when I see the emergency department Patient's most complaining of right-sided pain not on the left patient's denied any cough no conditions no fever no chills In the emergency department initial chest x-ray suggest possible pneumonia receiving IV antibiotic patient was admitting in the hospital her back in the last year with a left-sided pneumonia Patient seen by Dr. Dial float remover since couple of months back and according to the patient and patient had a stress test on 6 month back Patient's otherwise denied any other symptoms Discussed with the patient and the to admit in the hospital with the multiple risk factor for further evaluations Discuss with the nephrology for possible dialysis today Past Medical History Cardiac Medical History: Reports: Atrial Fibrillation, Congestive Heart Failure , Coronary Artery Disease, Hyperlipidema, Hypertension Denies: Myocardial Infarction Pulmonary Medical History: Reports: Chronic Obstructive Pulmonary Disease (COPD) , Pneumonia Denies: Asthma, Bronchitis Neurological Medical History: Denies: Seizures Endocrine Medical History: Reports: Diabetes Mellitus Type 2, Hypothyroidism Renal/ Medical History: Reports: End Stage Renal Disease GI Medical History: Reports: Gastroesophageal Reflux Disease Musculoskeltal Medical History: Reports: Arthritis Psychiatric Medical History: Reports: Depression Hematology: Reports: Anemia Past Surgical History Past Surgical History: Reports: Cardiac Catheterization, Orthopedic Surgery - FEET, SHOULDER, Vascular Surgery - fistula left arm, Other - Many eye surgeries Social History Lives with: Family Smoking Status: Never Smoker Frequency of Alcohol Use: Rare Hx Recreational Drug Use: No Drugs: None Hx Prescription Drug Abuse: No Family History Family History: Arthritis, CAD, COPD, CVA, DM, Hyperlipidemia, Hypertension, Malignancy, Thyroid Disfunction Parental Family History Reviewed: Yes Children Family History Reviewed: Yes Sibling(s) Family History Reviewed.: Yes Medication/Allergy Home Medications: Cyclobenzaprine HCl [Flexeril 5 mg Tablet] 5 mg PO BIDP PRN 04/22/17 Pregabalin [Lyrica] 200 mg PO BID 04/22/17 Tramadol HCl [Ultram 50 mg Tablet] 50 mg PO Q12HP PRN 04/22/17 Insulin Glargine,Hum.rec.anlog [Lantus Insulin 100 Unit/mL] 50 unit SUBCUT BID # 1 insuln.pen 04/29/17 Levofloxacin [Levaquin 250 mg Tablet] 250 mg PO DAILY #5 tablet 04/29/17 Albuterol Sulfate [Ventolin 0.083% Neb 2.5 mg/3 ml Ampul] 1 vial NEB Q4 PRN #30 vial 07/15/17 Benzonatate [Tessalon Perle 100 mg Capsule] 100 mg PO Q8HP PRN #20 cap 07/15/17 Doxycycline Hyclate 100 mg PO BID #14 capsule 05/03/18 Allergies/Adverse Reactions: cayenne pepper fruits Allergy (Intermediate, Verified 05/03/18 08:24) Review of Systems Constitutional: ABSENT: chills, fever(s), headache(s), weight gain, weight loss Eyes: ABSENT: visual disturbances Ears: ABSENT: hearing changes Cardiovascular: PRESENT: chest pain. ABSENT: dyspnea on exertion, edema, orthropnea, palpitations Respiratory: ABSENT: cough, hemoptysis Gastrointestinal: ABSENT: abdominal pain, constipation, diarrhea, hematemesis, hematochezia, nausea, vomiting Genitourinary: ABSENT: dysuria, hematuria Musculoskeletal: ABSENT: joint swelling Integumentary: ABSENT: rash, wounds Neurological: ABSENT: abnormal gait, abnormal speech, confusion, dizziness, focal weakness, syncope Psychiatric: ABSENT: anxiety, depression, homidical ideation, suicidal ideation Endocrine: ABSENT: cold intolerance, heat intolerance, menstrual abnormalities, polydipsia, polyuria Hematologic/Lymphatic: ABSENT: easy bleeding, easy bruising, lymphadenopathy Physical Exam Vital Signs: Temp Pulse Resp BP Pulse Ox 97.8 F 66 12 125/69 98 05/03/18 02:33 05/03/18 08:22 05/03/18 08:22 05/03/18 08:22 05/03/18 08:22 General appearance: PRESENT: no acute distress, well-developed, well-nourished Head exam: PRESENT: atraumatic, normocephalic Eye exam: PRESENT: conjunctiva pink, EOMI, PERRLA. ABSENT: scleral icterus Ear exam: PRESENT: normal external ear exam Mouth exam: PRESENT: moist, tongue midline Neck exam: PRESENT: full ROM. ABSENT: carotid bruit, JVD, lymphadenopathy, thyromegaly Respiratory exam: PRESENT: clear to auscultation nelson Cardiovascular exam: PRESENT: RRR. ABSENT: diastolic murmur, rubs, systolic murmur Pulses: PRESENT: normal dorsalis pedis pul, +2 pedal pulses bilateral Vascular exam: PRESENT: normal capillary refill GI/Abdominal exam: PRESENT: normal bowel sounds, soft. ABSENT: distended, guarding, mass, organolmegaly, rebound, tenderness Rectal exam: PRESENT: deferred Extremities exam: ABSENT: pedal edema Neurological exam: PRESENT: alert, awake, oriented to person, oriented to place , oriented to time, oriented to situation, CN II-XII grossly intact. ABSENT: motor sensory deficit Psychiatric exam: PRESENT: appropriate affect, normal mood. ABSENT: homicidal ideation, suicidal ideation Skin exam: PRESENT: dry, intact, warm. ABSENT: cyanosis, rash Results Impressions: Chest X-Ray 05/03/18 02:53 IMPRESSION: Moderate left lower lobar pneumonia. Recommend CR/CT surveillance including at 7-12 weeks following initiation of clinically warranted therapy. Chest CT 05/03/18 08:31 IMPRESSION: Stable, chronic small left pleural effusion and rounded atelectasis. Assessment & Plan - Diagnosis (1) Chest pain Qualifiers: Chest pain type: unspecified Qualified Code(s): R07.9 - Chest pain, unspecified Is this a current diagnosis for this admission?: Yes Plan: Admit the patient in the IMCU rule out the acute coronary syndromes patient's initial EKG and it was set of cardiac enzyme is negative Will get the CT of the chest for further evaluations Consult to cardiology (2) CAD (coronary artery disease) Qualifiers: Coronary Disease-Associated Artery/Lesion type: [place] artery Is this a current diagnosis for this admission?: Yes Plan: Patient had a stent placement in the [place] we will consult cardiology for further evaluations (3) CKD (chronic kidney disease) stage 5, GFR less than 15 ml/min Is this a current diagnosis for this admission?: Yes Plan: Currently on hemodialysis (4) COPD (chronic obstructive pulmonary disease) Qualifiers: COPD type: unspecified COPD Is this a current diagnosis for this admission?: Yes Plan: Continue some nebulizer treatments (5) Diabetes mellitus Qualifiers: Diabetes mellitus type: type 2 Diabetes mellitus complication status: with kidney complications Diabetes mellitus complication detail: with nephropathy Is this a current diagnosis for this admission?: Yes Plan: Continue sliding-scale (6) ESRD (end stage renal disease) on dialysis Is this a current diagnosis for this admission?: Yes (7) Hypothyroidism Qualifiers: Hypothyroidism type: unspecified Qualified Code(s): E03.9 - Hypothyroidism , unspecified Is this a current diagnosis for this admission?: Yes (8) Left lower lobe pneumonia Qualifiers: Pneumonia type: due to unspecified organism Qualified Code(s): J18.1 - Lobar pneumonia, unspecified organism Is this a current diagnosis for this admission?: Yes Plan: Will cover the antibiotic get the nebulizer treatments (9) Secondary hyperparathyroidism Is this a current diagnosis for this admission?: Yes (10) Sleep apnea syndrome Qualifiers: Is this a current diagnosis for this admission?: Yes Plan: Continue use of CPAP (11) Tear of skin of plantar aspect of foot Qualifiers: Encounter type: initial encounter Laterality: right Qualified Code(s): S91.311A - Laceration without foreign body, right foot, initial encounter Is this a current diagnosis for this admission?: Yes - Time Time Spent: 30 to 50 Minutes Medications reviewed and adjusted accordingly: Yes Anticipated discharge: Home Within: Other - Inpatient Certification Medical Necessity: Need Close Monitoring Due to Risk of Patient Decompensation, Need for IV Antibiotics 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
[2018-05-03] MEDS: CEFEPIME 1 GM/D5W RTU 1 GM/50 ML RTUPB IV SCH ×2 (10:09→22:23)
[2018-05-03] MEDS: DOCUSATE SODIUM 100 MG CAPSULE PO SCH ×2 (10:09→19:07)
[2018-05-03] MEDS: OXYCODONE-ACETAMINOPHEN 5-325 MG TABLET PO PRN (10:37)
[2018-05-03] MEDS: LEVOFLOXACIN 250 MG TABLET PO SCH (10:37)
[2018-05-03] MEDS ORDERED: GLUCAGON,HUMAN RECOMB 1 MG INJ IM PRN (13:06)
[2018-05-03] MEDS ORDERED: DEXTROSE 40% GEL 15 GM TUBE X 2 PO PRN (13:06)
[2018-05-03] MEDS ORDERED: DEXTROSE 50%-WATER SYRINGE 12.5 GM/25 ML DOSE IV PRN (13:06)
[2018-05-03] MEDS ORDERED: DEXTROSE 40% GEL 15 GM TUBE PO PRN (13:06)
[2018-05-03] MEDS ORDERED: DEXTROSE 50%-WATER SYRINGE 25 GM/50 ML DOSE IV PRN (13:06)
[2018-05-03] MEDS: HEPARIN SOD (PORCINE) 5,000 UNIT/ML 1 ML SYRINGE SUBCUT SCH ×2 (16:32→22:23)
[2018-05-03 18:34] LABS: CREATINE KINASE MB 1.65 ng/mL (<4.55); TROPONIN I 0.017 ng/mL
--- NOTE | 2018-05-03 21:03 | PDOC CONSULTATION ---
Consultation Consult Date: 05/03/18 Attending physician:: PADMINI BOND Consult reason:: Chest pain History of Present Illness Admission Date/PCP: 05/03/18 08:34 PADMINI BOND MD Patient complains of: Chest pain History of Present Illness: RITA GAFFNEY is a 58 year old male is a 58-year-old male with end-stage renal disease on currently on home hemodialysis and a history of coronary artery disease status post stent placement, history of sleep apnea history of type 2 diabetes and a chronic neuropathy, admitted through the emergency department with a complaint for chest pain started last night patients took 1 aspirin and 2 nitroglycerin in patients receiving some pain medications in patients feeling better when I see the emergency department Patient's most complaining of right-sided pain not on the left patient's denied any cough no conditions no fever no chills In the emergency department initial chest x-ray suggest possible pneumonia receiving IV antibiotic patient was admitting in the hospital her back in the last year with a left-sided pneumonia Patient seen by Dr. Dial air brake adjuster since couple of months back and according to the patient and patient had a stress test on 6 month back. However on review of records, the stress test was more like 2 years ago. Patient's otherwise denied any other symptoms Discussed with the patient and the to admit in the hospital with the multiple risk factor for further evaluations Discuss with the nephrology for possible dialysis today Past Medical History Cardiac Medical History: Reports: Atrial Fibrillation, Congestive Heart Failure , Coronary Artery Disease, Hyperlipidema, Hypertension Denies: Myocardial Infarction Pulmonary Medical History: Reports: Chronic Obstructive Pulmonary Disease (COPD) , Pneumonia Denies: Asthma, Bronchitis Neurological Medical History: Denies: Seizures Endocrine Medical History: Reports: Diabetes Mellitus Type 2, Hypothyroidism Renal/ Medical History: Reports: End Stage Renal Disease GI Medical History: Reports: Gastroesophageal Reflux Disease Musculoskeltal Medical History: Reports: Arthritis Psychiatric Medical History: Reports: Depression Hematology: Reports: Anemia Past Surgical History Past Surgical History: Reports: Cardiac Catheterization, Coronary Stent, Orthopedic Surgery - FEET, SHOULDER, Vascular Surgery - fistula left arm, Other - Many eye surgeries Social History Information Source: Patient Lives with: Family Smoking Status: Never Smoker Frequency of Alcohol Use: Rare Hx Recreational Drug Use: No Drugs: None Hx Prescription Drug Abuse: No - Advance Directive Resuscitation Status: Full Code Surrogate healthcare decision maker:: Patient's is the surrogate decision-maker Family History Family History: Arthritis, CAD, COPD, CVA, DM, Hyperlipidemia, Hypertension, Malignancy, Thyroid Disfunction Parental Family History Reviewed: Yes Children Family History Reviewed: Yes Sibling(s) Family History Reviewed.: Yes Medication/Allergy Home Medications: Pregabalin [Lyrica] 200 mg PO BID 04/22/17 Furosemide [Lasix 20 mg Tablet] 20 mg PO DAILY 05/03/18 Insulin Glargine,Hum.rec.anlog [Lantus Insulin 100 Unit/mL] 40 unit SUBCUT QHS 05/03/18 Ipratropium/Albuterol Sulfate [Iprat-Albut 0.5-3(2.5) Mg/3 Ml] 3 ml IH QID 05/03 Levothyroxine Sodium [Synthroid 0.075 mg Tablet] 0.075 mg PO DAILY 05/03/18 Allergies/Adverse Reactions: cayenne pepper fruits Allergy (Intermediate, Verified 05/03/18 08:24) Review of Systems Review of Systems: Please see history of present illness and past medical history as wall. Constitutional: No fever or chills reported. Head : No recent chronic headaches, recent head injury. Eyes: No recent eye pain, diplopia, redness, discharge, acute visual changes. Ears: No recent chronic ear pain, acute hearing loss, ear discharge. Oral cavity: No recent ulcerations, bleeding, oral cavity discomfort. Neck: No recent acute neck pain reported. Hematologic: No recent easy bruising or bleeding. Lymphatic: No recent lymph node enlargement reported. Cardiovascular system review: See history of present illness. Respiratory system review: No hemoptysis or blood clots in the lungs reported. Mild Shortness of breath on exertion Gastrointestinal system review: Negative for any recent acute hematemesis, melena. Genitourinary system review: No recent acute or chronic hematuria, flank pain, UTI etc. reported. Skin system review: Negative for any recent abnormal bruising, no rash, no pruritus reported. Neurologic: No prior history of strokes, mini strokes, seizure disorder. Psychologic: No history of major psychosis or major depression reported. Musculoskeletal: Minor aches and pains reported. No acute joint swelling reported. Neuropathy left upper extremity. Endocrine: No recent polyuria, polydipsia, recent heat or cold intolerance. Physical Exam Vital Signs: Temp Pulse Resp BP Pulse Ox 97.8 F 66 20 110/51 L 98 05/03/18 12:00 05/03/18 14:00 05/03/18 12:00 05/03/18 12:00 05/03/18 12:00 Intake & Output 05/02/18 05/03/18 05/04/18 06:59 06:59 06:59 Intake Total 287 Output Total 2300 Weight 147.9 kg Exam: GENERAL: well-nourished and in no acute distress. Alert and oriented x3 HEAD: Atraumatic, normocephalic. EYES: Pupils equal round and reactive to light, extraocular movements intact, sclera anicteric, conjunctiva are normal. ENT: TMs normal, nares patent, oropharynx clear without exudates. Moist mucous membranes. No oral ulcerations or bleeding gums noted NECK: supple without lymphadenopathy. Trachea is central. No cervical or axillary lymphadenopathy noted. Carotids are 2+, JVD WNL LUNGS: Respiration seems nonlabored, no significant accessory muscle action noted. Breath sounds clear to auscultation bilaterally and equal noted. No wheezes rales or rhonchi noted. No significant dullness noted on percussion. CHEST: Palpation of the chest wall shows no significant chest wall tenderness. HEART: [place] LOCATION ANALYST, No PSH, 1/6 FRANKIE aortic area, 1/6 harris systolic murmur mitral area, no rubs, no gallops. ABDOMEN: Soft, no significant tenderness appreciated, normoactive bowel sounds. No guarding, no rebound. No rigidity noted . No masses appreciated. EXTREMITIES: Pedal pulses are 1-2+, no calf tenderness noted. No clubbing or cyanosis. 1+ chronic pedal edema noted NEUROLOGICAL: Focused neurological exam showed no significant neurologic deficit. Normal speech, no focal weakness appreciated. PSYCH: Normal mood, normal affect. Judgment and insight within normal limits. SKIN: No significant ecchymosis, skin is noted to be warm. MUSCULOSKELETAL EXAM: Patient describes charcoats involvement of multiple lower extremity joint preventing him from weightbearing. Joint swelling is noted. Results Laboratory Results: 05/03/18 05/03/18 17:59 17:59 Creatine Kinase 73 CK-MB (CK-2) 1.65 Troponin I 0.017 EKG Comments: Sinus rhythm, no acute ST-T wave changes are noted Impressions: Chest X-Ray 05/03/18 02:53 IMPRESSION: Moderate left lower lobar pneumonia. Recommend CR/CT surveillance including at 7-12 weeks following initiation of clinically warranted therapy. Chest CT 05/03/18 08:31 IMPRESSION: Stable, chronic small left pleural effusion and rounded atelectasis. Assessment & Plan - Diagnosis (1) Chest pain Qualifiers: Chest pain type: unspecified Qualified Code(s): R07.9 - Chest pain, unspecified Is this a current diagnosis for this admission?: Yes (2) CAD (coronary artery disease) Qualifiers: Coronary Disease-Associated Artery/Lesion type: [place] artery [place] vs. transplanted heart: [place] heart Associated angina: angina presence unspecified Qualified Code(s): I25.10 - Atherosclerotic heart disease of [place] coronary artery without angina pectoris Is this a current diagnosis for this admission?: Yes (3) CKD (chronic kidney disease) stage 5, GFR less than 15 ml/min Is this a current diagnosis for this admission?: Yes (4) COPD (chronic obstructive pulmonary disease) Qualifiers: COPD type: unspecified COPD Qualified Code(s): J44.9 - Chronic obstructive pulmonary disease, unspecified Is this a current diagnosis for this admission?: Yes (5) Obesity Is this a current diagnosis for this admission?: Yes (6) Sleep apnea syndrome Qualifiers: Sleep apnea type: unspecified type Qualified Code(s): G47.30 - Sleep apnea , unspecified Is this a current diagnosis for this admission?: Yes - Notes Notes: Will schedule patient for a 2D echocardiogram and nuclear stress test to evaluate chest pain. Patient encouraged to bring his CPAP machine and use CPAP machine while being hospitalized. Patient has been encouraged in weight loss. Chest pain: Patient has numerous cardiac risk factors therefore there is high probability that chest pain could be from coronary artery disease. Patient being scheduled for a nuclear stress test. For risk stratification have also ordered a 2D echocardiogram. Coronary artery disease: Patient gives a history of CAD. To be evaluated further with a nuclear stress test. Chronic kidney disease: Currently is stable. Patient on dialysis therapy. Patient being evaluated by special events assistant. COPD: Recommend continuing home bronchodilator and steroid therapy. Obesity: Patient has significant obesity. He will benefit from weight loss. Sleep apnea syndrome: Patient advised to bring his CPAP machine and use it at night and on as needed basis during the day. This was explained to the patient. Diabetes: Patient has significant complications from diabetes. Patient being well managed by bonsai culturist. - Time Time Spent: 30 to 50 Minutes - CODE STATUS was discussed, patient remains full code. Surrogate decision-maker patient's . Multiple medical problems were addressed. More than 50% of the time spent coordinating care, discussing management plans with involved caregivers. Management plans discussed with involved personnels. Medical decision making was of moderate to high complexity , patient's has multiple comorbidities. Medications reviewed and adjusted accordingly: Yes
--- NOTE | 2018-05-03 21:35 | PDOC CONSULTATION ---
Consultation Consult Date: 05/03/18 Consult reason:: Hemodialysis History of Present Illness Admission Date/PCP: 05/03/18 08:34 PADMINI BOND MD History of Present Illness: RITA GAFFNEY is a 58 year old male with history of long-standing complicated diabetes mellitus, hypertension, ESRD on on home hemodialysis was admitted by Dr. Bond with a history of chest pain shortness of breath of a days duration. Mild dry cough as well without any fever or chills He was having mid sternal chest pain with no radiation. However it was pleuritc in nature. He has been admitted to be ruled out. His chest Xray was reported by the radiologist has having a left lower lobe pneumonia which I am unable to appreciate. He had a non contrasted CT lungs which was reported to show a normal looking lung with a small effusions and no evidence of any pneumonia in his left lung. He has been begun on antibiotics. Currently being seen on dialysis. He is undergoing dialysis without any issues. He denies any history of chest pain or shortness of breath currently while he is resting in bed.Labs and medications were reviewed with the patient.Vital signs are stable. Orders were reviewed with the treating dialysis nurse. Past Medical History Cardiac Medical History: Reports: Atrial Fibrillation, Coronary Artery Disease, Hyperlipidemia, Hypertension-primary Denies: Myocardial Infarction Pulmonary Medical History: Reports: Chronic Obstructive Pulmonary Disease (COPD) , Pneumonia Denies: Asthma, Bronchitis Neurological Medical History: Denies: Seizures Endocrine Medical History: Reports: Diabetes Mellitus Type 2, Hypothyroidism Renal/ Medical History: Reports: End Stage Renal Disease, Secondary Hyperparathyroidism GI Medical History: Reports: Gastroesophageal Reflux Disease Musculoskeltal Medical History: Reports: Arthritis Psychiatric Medical History: Reports: Depression Hematology Medical History: Reports Anemia of Chronic Kidney Disease Past Surgical History Past Surgical History: Reports: Cardiac Catheterization, Orthopedic Surgery - FEET, SHOULDER, Vascular Surgery - fistula left arm, Other - Many eye surgeries Social History Lives with: Family Smoking Status: Never Smoker Frequency of Alcohol Use: Rare Hx Recreational Drug Use: No Drugs: None Hx Prescription Drug Abuse: No - Advance Directive Resuscitation Status: Full Code Family History Parental Family History Reviewed: Yes - Negative for ESRD. Children Family History Reviewed: No Sibling(s) Family History Reviewed.: No Medication/Allergy Home Medications: Pregabalin [Lyrica] 200 mg PO BID 04/22/17 Furosemide [Lasix 20 mg Tablet] 20 mg PO DAILY 05/03/18 Insulin Glargine,Hum.rec.anlog [Lantus Insulin 100 Unit/mL] 40 unit SUBCUT QHS 05/03/18 Ipratropium/Albuterol Sulfate [Iprat-Albut 0.5-3(2.5) Mg/3 Ml] 3 ml IH QID 05/03 Levothyroxine Sodium [Synthroid 0.075 mg Tablet] 0.075 mg PO DAILY 05/03/18 Allergies/Adverse Reactions: cayenne pepper fruits Allergy (Intermediate, Verified 05/03/18 08:24) Review of Systems Constitutional: ABSENT: fever(s), headache(s), night sweats, weakness Ears: ABSENT: hearing changes Cardiovascular: PRESENT: chest pain, dyspnea on exertion. ABSENT: edema Gastrointestinal: ABSENT: abdominal pain, diarrhea, dysphagia, heartburn, hematemesis, hematochezia, nausea, vomiting Genitourinary: ABSENT: dysuria, hematuria Neurological: ABSENT: abnormal speech, focal weakness Hematologic/Lymphatic: ABSENT: easy bleeding, easy bruising, lymphadenopathy Physical Exam Vital Signs: Temp Pulse Resp BP Pulse Ox 97.8 F 64 20 110/51 L 98 05/03/18 12:00 05/03/18 12:00 05/03/18 12:00 05/03/18 12:00 05/03/18 12:00 Intake & Output 05/02/18 05/03/18 05/04/18 06:59 06:59 06:59 Weight 147.9 kg General appearance: PRESENT: no acute distress, obese Eye exam: PRESENT: conjunctiva pink, EOMI, PERRLA. ABSENT: nystagmus Ear exam: PRESENT: normal external ear exam Mouth exam: PRESENT: moist, neck supple Neck exam: ABSENT: lymphadenopathy, meningismus, tenderness, thyromegaly, tracheal deviation Respiratory exam: PRESENT: clear to auscultation nelson, crackles Cardiovascular exam: PRESENT: +S1, +S2, systolic murmur GI/Abdominal exam: PRESENT: normal bowel sounds, soft. ABSENT: organomegaly, tenderness Extremities exam: PRESENT: pedal edema Neurological exam: PRESENT: alert, awake, oriented to person, oriented to place Skin exam: ABSENT: erythema, mottled, rash Results Impressions: Chest X-Ray 05/03/18 02:53 IMPRESSION: Moderate left lower lobar pneumonia. Recommend CR/CT surveillance including at 7-12 weeks following initiation of clinically warranted therapy. Chest CT 05/03/18 08:31 IMPRESSION: Stable, chronic small left pleural effusion and rounded atelectasis. Assessment & Plan - Diagnosis (1) Chest pain Qualifiers: Chest pain type: unspecified Qualified Code(s): R07.9 - Chest pain, unspecified Is this a current diagnosis for this admission?: Yes Plan: Clinically pleuritic in nature. Being evaluated to be ruled out (2) ESRD (end stage renal disease) on dialysis Is this a current diagnosis for this admission?: Yes Plan: patient was seen on dialysis.He is undergoing dialysis without any issues. It is being supervised to ensure a safe and smooth procedure. VS are stable. Plan to remove around 3 L as tolerated Orders were reviewed with treating network project manager. Once discharged he will go back on Home HD x 5/ week (3) Diabetes mellitus Qualifiers: Diabetes mellitus type: type 2 Diabetes mellitus complication status: with kidney complications Diabetes mellitus complication detail: with nephropathy Is this a current diagnosis for this admission?: Yes Plan: Adv on need for tight diabetic control. Adv on compliance with diet and medications (4) Hypothyroidism Qualifiers: Hypothyroidism type: unspecified Qualified Code(s): E03.9 - Hypothyroidism , unspecified Is this a current diagnosis for this admission?: Yes Plan: Ensure he continues to get thyroid replacements
[2018-05-03] MEDS: INSULIN LISPRO 100 UNIT/ML 3 ML VIAL SUBCUT PRN (22:21)
[2018-05-03] MEDS ORDERED: INSULIN GLARGINE,HUM.REC.ANLOG 300 UNIT/3 ML INSULN.PEN SUBCUT ONE (23:00)
[2018-05-03] MEDS ORDERED: PREGABALIN 100 MG CAPSULE PO ONE (23:00)
[2018-05-04] MEDS ORDERED: INSULIN GLARGINE,HUM.REC.ANLOG 1,000 UNIT/10 ML UNIT SUBCUT ONE (00:03)
[2018-05-04 01:13] LABS: CREATINE KINASE MB 1.47 ng/mL (<4.55); TROPONIN I 0.013 ng/mL
[2018-05-04] MEDS: OXYCODONE-ACETAMINOPHEN 5-325 MG TABLET PO PRN ×3 (02:49→15:25)
[2018-05-04] MEDS: LEVOTHYROXINE SODIUM 0.075 MG TABLET PO SCH (05:51)
[2018-05-04] MEDS: HEPARIN SOD (PORCINE) 5,000 UNIT/ML 1 ML SYRINGE SUBCUT SCH ×3 (05:51→21:51)
[2018-05-04 07:13] LABS: HEMATOCRIT 29.4 % (37.9-51.0); HEMOGLOBIN 10.2 g/dL (13.5-17.0); MEAN CORPUSCULAR HGB CONC 34.8 g/dL (32.0-36.0); MEAN CORPUSCULAR VOLUME 89 fl (80-97); PLATELET COUNT 221 10^3/uL (150-450); RED BLOOD COUNT 3.31 10^6/uL (4.35-5.55); WHITE BLOOD COUNT 7.7 10^3/uL (4.0-10.5)
[2018-05-04 07:25] LABS: ANION GAP 13 (5-19); CALCIUM 7.2 mg/dL (8.4-10.2); CARBON DIOXIDE 29 mmol/L (22-30); CHLORIDE 99 mmol/L (98-107); GLUCOSE 151 mg/dL (75-110); POTASSIUM 3.3 mmol/L (3.6-5.0); SODIUM 140.9 mmol/L (137-145)
[2018-05-04 07:37] LABS: BLOOD UREA NITROGEN 42 mg/dL (7-20)
[2018-05-04] MEDS ORDERED: POTASSIUM CHLORIDE 10 MEQ CAPSULE.ER PO ONE (08:52)
--- NOTE | 2018-05-04 08:52 | PDOC PROGRESS REPORT ---
Subjective Progress Note for:: 05/04/18 Subjective:: Patient is currently doing well Patient's going for the stress test today Patient's denied any chest pain denied any shortness of the breath No fever On blood culture is positive most likely a contaminated while patient does not have any sign of any sepsis Reason For Visit: CHEST PAIN,ESRD,PNEUMONIA Physical Exam Vital Signs: Temp Pulse Resp BP Pulse Ox 98.5 F 63 18 99/52 L 99 05/04/18 07:19 05/04/18 07:19 05/04/18 07:19 05/04/18 07:19 05/04/18 07:19 Intake & Output 05/03/18 05/04/18 05/05/18 06:59 06:59 06:59 Intake Total 437 Output Total 2450 -2012 Weight 146.7 kg General appearance: PRESENT: no acute distress, well-developed, well-nourished Head exam: PRESENT: atraumatic, normocephalic Eye exam: PRESENT: conjunctiva pink, EOMI, PERRLA. ABSENT: scleral icterus Ear exam: PRESENT: normal external ear exam Mouth exam: PRESENT: moist, tongue midline Neck exam: PRESENT: full ROM. ABSENT: carotid bruit, JVD, lymphadenopathy, thyromegaly Respiratory exam: PRESENT: clear to auscultation nelson Cardiovascular exam: PRESENT: RRR. ABSENT: diastolic murmur, rubs, systolic murmur Pulses: PRESENT: normal dorsalis pedis pul, +2 pedal pulses bilateral Vascular exam: PRESENT: normal capillary refill GI/Abdominal exam: PRESENT: normal bowel sounds, soft. ABSENT: distended, guarding, mass, organolmegaly, rebound, tenderness Rectal exam: PRESENT: deferred Neurological exam: PRESENT: alert, awake, oriented to person, oriented to place , oriented to time, oriented to situation, CN II-XII grossly intact. ABSENT: motor sensory deficit Psychiatric exam: PRESENT: appropriate affect, normal mood. ABSENT: homicidal ideation, suicidal ideation Skin exam: PRESENT: dry, intact, warm. ABSENT: cyanosis, rash Results Laboratory Results: 05/04/18 06:34 05/04/18 06:34 05/04/18 05/04/18 06:34 06:34 WBC 7.7 RBC 3.31 L Hgb 10.2 L Hct 29.4 L MCV 89 MCH 31.0 MCHC 34.8 RDW 15.0 H Plt Count 221 Sodium 140.9 Potassium 3.3 L Chloride 99 Carbon Dioxide 29 Anion Gap 13 BUN 42 H D Creatinine 5.99 H Est GFR ( Amer) 12 L Est GFR (Non-Af Amer) 10 L Glucose 151 H Calcium 7.2 L Magnesium 1.8 05/03/18 05/03/18 05/04/18 17:59 17:59 00:15 Creatine Kinase 73 55 CK-MB (CK-2) 1.65 Troponin I 0.017 NT-Pro-B Natriuret Pep 05/04/18 05/04/18 00:15 06:34 Creatine Kinase CK-MB (CK-2) 1.47 Troponin I 0.013 NT-Pro-B Natriuret Pep 4170 H Impressions: Chest X-Ray 05/03/18 02:53 IMPRESSION: Moderate left lower lobar pneumonia. Recommend CR/CT surveillance including at 7-12 weeks following initiation of clinically warranted therapy. Chest CT 05/03/18 08:31 IMPRESSION: Stable, chronic small left pleural effusion and rounded atelectasis. Assessment & Plan - Diagnosis (1) Chest pain Qualifiers: Chest pain type: unspecified Qualified Code(s): R07.9 - Chest pain, unspecified Is this a current diagnosis for this admission?: Yes Plan: Going for the stress test today (2) CAD (coronary artery disease) Qualifiers: Coronary Disease-Associated Artery/Lesion type: [place] artery [place] vs. transplanted heart: [place] heart Associated angina: angina presence unspecified Qualified Code(s): I25.10 - Atherosclerotic heart disease of [place] coronary artery without angina pectoris Is this a current diagnosis for this admission?: Yes Plan: Follow with the cardiology (3) CKD (chronic kidney disease) stage 5, GFR less than 15 ml/min Is this a current diagnosis for this admission?: Yes Plan: Currently on hemodialysis (4) COPD (chronic obstructive pulmonary disease) Qualifiers: COPD type: unspecified COPD Is this a current diagnosis for this admission?: Yes Plan: Continue some nebulizer treatments (5) Diabetes mellitus Qualifiers: Diabetes mellitus type: type 2 Diabetes mellitus complication status: with kidney complications Diabetes mellitus complication detail: with nephropathy Is this a current diagnosis for this admission?: Yes Plan: Continue sliding-scale (6) ESRD (end stage renal disease) on dialysis Is this a current diagnosis for this admission?: Yes (7) Hypothyroidism Qualifiers: Hypothyroidism type: unspecified Qualified Code(s): E03.9 - Hypothyroidism , unspecified Is this a current diagnosis for this admission?: Yes (8) Left lower lobe pneumonia Qualifiers: Pneumonia type: due to unspecified organism Qualified Code(s): J18.1 - Lobar pneumonia, unspecified organism Is this a current diagnosis for this admission?: Yes Plan: Patient's CT scan review small effusions will cover with antibiotics (9) Secondary hyperparathyroidism Is this a current diagnosis for this admission?: Yes (10) Sleep apnea syndrome Qualifiers: Sleep apnea type: unspecified type Is this a current diagnosis for this admission?: Yes Plan: Continue use of CPAP (11) Tear of skin of plantar aspect of foot Qualifiers: Encounter type: initial encounter Laterality: right Qualified Code(s): S91.311A - Laceration without foreign body, right foot, initial encounter Is this a current diagnosis for this admission?: Yes - Time Time Spent with patient: 15-24 minutes Medications reviewed and adjusted accordingly: Yes Anticipated discharge: Home Within: within 24 hours - Inpatient Certification Medical Necessity: Need Close Monitoring Due to Risk of Patient Decompensation Post Hospital Care: D/C [employer] Supervisor Documentation - Plan Summary Plan Summary: Scheduled for the stress test today after stress test surface all stable get the physical therapy evaluations and possible discharge next 24 hours if is all remains stable
--- NOTE | 2018-05-04 08:53 | EKG REPORT ---
SEVERITY:- BORDERLINE ECG - SINUS RHYTHM BORDERLINE T ABNORMALITIES, INFERIOR LEADS LVH : Confirmed by: Elizabeth Dial 04-May-2018 08:52:57
--- NOTE | 2018-05-04 08:53 | EKG REPORT ---
SEVERITY:- ABNORMAL ECG - SINUS RHYTHM NONSPECIFIC T ABNORMALITIES, INFERIOR LEADS LVH : Confirmed by: Elizabeth Dial 04-May-2018 08:53:19
[2018-05-04] MEDS: FUROSEMIDE 20 MG TABLET PO SCH (09:25)
[2018-05-04] MEDS: PREGABALIN 100 MG CAPSULE PO SCH ×2 (09:25→17:44)
[2018-05-04] MEDS: LEVOFLOXACIN 250 MG TABLET PO SCH (09:26)
[2018-05-04] MEDS: DOCUSATE SODIUM 100 MG CAPSULE PO SCH ×2 (09:27→17:45)
[2018-05-04] MEDS: CEFEPIME 1 GM/D5W RTU 1 GM/50 ML RTUPB IV SCH ×2 (09:28→21:50)
[2018-05-04] MEDS ORDERED: ONDANSETRON HCL 8 MG TABLET PO PRN (09:30)
[2018-05-04] MEDS ORDERED: CAFFEINE CITRATED INJ/PF 60 MG/3 ML SDV ONE (15:15)
[2018-05-04] MEDS ORDERED: REGADENOSON INJ 0.4 MG/5 ML DISP.SYRIN IV ONE (15:15)
--- NOTE | 2018-05-04 16:13 | PDOC PROGRESS REPORT ---
Subjective Progress Note for:: 05/04/18 Subjective:: Patient was laying in his bed during examination. He claims to still have a dull ache pain in his back. It does not radiate anywhere and nothing makes it better or worse. He rates it as a 2 out of 10. He denies nausea, vomiting or SOB. Denies fevers or chills. Reason For Visit: CHEST PAIN,ESRD,PNEUMONIA Physical Exam Vital Signs: Temp Pulse Resp BP Pulse Ox 98.5 F 68 18 99/52 L 99 05/04/18 07:19 05/04/18 14:00 05/04/18 07:19 05/04/18 07:19 05/04/18 07:19 Intake & Output 05/03/18 05/04/18 05/05/18 06:59 06:59 06:59 Intake Total 437 641 Output Total 2450 0 641 Weight 146.7 kg General appearance: PRESENT: no acute distress, well-developed, well-nourished Mouth exam: PRESENT: moist, neck supple Neck exam: PRESENT: full ROM. ABSENT: JVD Respiratory exam: PRESENT: crackles, rales, rhonchi. ABSENT: accessory muscle use, clear to auscultation nelson, wheezes Cardiovascular exam: PRESENT: +S1, +S2, systolic murmur GI/Abdominal exam: PRESENT: normal bowel sounds, soft. ABSENT: organomegaly, tenderness Extremities exam: ABSENT: pedal edema, tenderness, +1 edema, +2 edema Musculoskeletal exam: PRESENT: normal inspection. ABSENT: tenderness Neurological exam: PRESENT: alert, awake, oriented to person, oriented to place , oriented to time, oriented to situation Psychiatric exam: PRESENT: appropriate affect, normal mood Skin exam: PRESENT: dry, intact, warm. ABSENT: cyanosis Results Laboratory Results: 05/04/18 06:34 05/04/18 06:34 05/04/18 05/04/18 06:34 06:34 WBC 7.7 RBC 3.31 L Hgb 10.2 L Hct 29.4 L MCV 89 MCH 31.0 MCHC 34.8 RDW 15.0 H Plt Count 221 Sodium 140.9 Potassium 3.3 L Chloride 99 Carbon Dioxide 29 Anion Gap 13 BUN 42 H D Creatinine 5.99 H Est GFR ( Amer) 12 L Est GFR (Non-Af Amer) 10 L Glucose 151 H Calcium 7.2 L Magnesium 1.8 05/03/18 05/03/18 05/04/18 17:59 17:59 00:15 Creatine Kinase 73 55 CK-MB (CK-2) 1.65 Troponin I 0.017 NT-Pro-B Natriuret Pep 05/04/18 05/04/18 00:15 06:34 Creatine Kinase CK-MB (CK-2) 1.47 Troponin I 0.013 NT-Pro-B Natriuret Pep 4170 H Impressions: Chest X-Ray 05/03/18 02:53 IMPRESSION: Moderate left lower lobar pneumonia. Recommend CR/CT surveillance including at 7-12 weeks following initiation of clinically warranted therapy. Chest CT 05/03/18 08:31 IMPRESSION: Stable, chronic small left pleural effusion and rounded atelectasis. Assessment & Plan - Diagnosis (1) Chest pain Qualifiers: Chest pain type: unspecified Qualified Code(s): R07.9 - Chest pain, unspecified Is this a current diagnosis for this admission?: Yes Plan: currently being worked up; unlikely to be due to pneumonia. Chest CT was clear. (2) ESRD (end stage renal disease) on dialysis Is this a current diagnosis for this admission?: Yes Plan: will look to arrange for more dialysis tomorrow, once he is out of the hospital he will continue dialysis 5 days a week at home. (4) Hypothyroidism Qualifiers: Hypothyroidism type: unspecified Qualified Code(s): E03.9 - Hypothyroidism , unspecified Is this a current diagnosis for this admission?: Yes Plan: on replacement
[2018-05-04] MEDS: INSULIN LISPRO 100 UNIT/ML 3 ML VIAL SUBCUT PRN ×2 (17:44→22:12)
--- NOTE | 2018-05-04 18:41 | XCELERA REPORT ---
[address] [address] Transthoracic Echocardiogram Report Name: RITA GAFFNEY Age: 58 yrs Gender: Male : 1960 Patient Status: Inpatient Patient Location: [address] [place] [address] Study Date: 05/04/2018 10:05 AM Weight: 326 lb Procedure: A complete two-dimensional transthoracic echocardiogram was performed (2D, M-mode, spectral and color flow Doppler). The study was technically difficult with many images being suboptimal in quality. Reason For Study: CP Ordering Physician: ELIZABETH JOSEPH Performed By: Zully Ruelas Interpretation Summary The left ventricular ejection fraction is normal. There is mild to moderate concentric left ventricular hypertrophy. The left ventricle is grossly normal size. Doppler measurements suggest pseudonormalized left ventricular relaxation, which is associated with grade II/IV or mild to moderate diastolic dysfunction Not all wall segments were well visualized. The right ventricle is mild to moderately dilated. Right ventricular function cannot be assessed due to poor image quality. The left atrium is borderline dilated. The right atrium is mildly dilated. There is no mitral regurgitation noted. There is no mitral valve stenosis. There is no aortic valve stenosis No aortic regurgitation is present. There is a trace or physiologic amount of tricuspid regurgitation Tricuspid regurgitation jet envelope not well defined to measure RV systolic pressure accurately. The aortic root is not well visualized but is probably normal size. The inferior vena cava was not visualized There is no pericardial effusion. MMode/2D Measurements & Calculations RVDd: 4.1 cm LVIDd: 6.0 cm FS: 33.5 % Ao root diam: 3.3 cm IVSd: 1.3 cm LVIDs: 4.0 cm EDV(Teich): 182.1 ml Ao root area: 8.7 cm2 LVPWd: 1.3 cm ESV(Teich): 70.3 ml EF(Teich): 61.4 % LVOT diam: 2.5 cm LVOT area: 4.8 cm2 Doppler Measurements & Calculations MV E max esther: MV dec slope: Ao V2 max: LV V1 max P.3 cm/sec 114.8 cm/sec 2.7 mmHg MV A max esther: 347.6 cm/sec2 Ao max PG: LV V1 max: 93.3 cm/sec MV dec time: 0.28 sec5.3 mmHg 82.3 cm/sec MV E/A: 1.0 JAMILAH(V,D): 3.4 cm2 PA V2 max: TR max esther: 95.4 cm/sec 262.7 cm/sec PA max P.6 mmHg TR max P.6 mmHg Left Ventricle The left ventricle is grossly normal size. There is mild to moderate concentric left ventricular hypertrophy. The left ventricular ejection fraction is normal. Doppler measurements suggest pseudonormalized left ventricular relaxation, which is associated with grade II/IV or mild to moderate diastolic dysfunction. Not all wall segments were well visualized. Right Ventricle The right ventricle is mild to moderately dilated. Right ventricular function cannot be assessed due to poor image quality. Atria The right atrium is mildly dilated. The left atrium is borderline dilated. Mitral Valve The mitral valve leaflets are sclerotic, but show no functional abnormalities. There is no mitral valve stenosis. There is no mitral regurgitation noted. Aortic Valve The aortic valve is grossly normal. There is no aortic valve stenosis. No aortic regurgitation is present. Tricuspid Valve The tricuspid valve is not well visualized secondary to technical limitations. There is no tricuspid stenosis. There is a trace or physiologic amount of tricuspid regurgitation. Tricuspid regurgitation jet envelope not well defined to measure RV systolic pressure accurately. Pulmonic Valve The pulmonic valve is not well visualized. Great Vessels The aortic root is not well visualized but is probably normal size. The inferior vena cava was not visualized. Effusions There is no pericardial effusion. : ELIZABETH JOSEPH > Elizabeth Joseph
--- NOTE | 2018-05-04 18:50 | PDOC PROGRESS REPORT ---
Subjective Progress Note for:: 05/04/18 Subjective:: Patient seems to be doing better with gradual improvement. Patient has noted some nausea. Pt is denying any chest arm or neck discomfort. Patient denying any PND, orthopnea. Patient denied any sustained palpitations, dizziness, syncope, near syncope. Patient denying any fever chills. Patient denying any other significant discomfort. In the morning he underwent stress part of 2-day imaging protocol. No significant complaints are noted. Patient is maintaining sinus rhythm. Review of systems: Rest review of systems negative. Medications: Medications have been reviewed. Reason For Visit: CHEST PAIN,ESRD,PNEUMONIA Physical Exam Vital Signs: Temp Pulse Resp BP Pulse Ox 97.9 F 69 20 119/30 L 98 05/04/18 15:26 05/04/18 15:26 05/04/18 15:26 05/04/18 15:26 05/04/18 15:26 Intake & Output 05/03/18 05/04/18 05/05/18 06:59 06:59 06:59 Intake Total 437 641 Output Total 2450 0 -2012 641 Weight 146.7 kg Exam: GENERAL: well-nourished and in no acute distress. Alert and oriented x3 HEAD: Atraumatic, normocephalic. EYES: Pupils equal round and reactive to light, extraocular movements intact, sclera anicteric, conjunctiva are normal. ENT: TMs normal, nares patent, oropharynx clear without exudates. Moist mucous membranes. No oral ulcerations or bleeding gums noted NECK: supple without lymphadenopathy. Trachea is central. No cervical or axillary lymphadenopathy noted. Carotids are 2+, JVD WNL LUNGS: Respiration seems nonlabored, no significant accessory muscle action noted. Breath sounds clear to auscultation bilaterally and equal noted. No wheezes rales or rhonchi noted. No significant dullness noted on percussion. CHEST: Palpation of the chest wall shows no significant chest wall tenderness. HEART: [place] [employer], No PSH, 1/6 FRANKIE aortic area, 1/6 harris systolic murmur mitral area, no rubs, no gallops. ABDOMEN: Soft, no significant tenderness appreciated, normoactive bowel sounds. No guarding, no rebound. No rigidity noted . No masses appreciated. EXTREMITIES: Pedal pulses are 1-2+, no calf tenderness noted. No clubbing or cyanosis. 1+ chronic pedal edema noted NEUROLOGICAL: Focused neurological exam showed no significant neurologic deficit. Normal speech, patient has some left upper extremity weakness, which he claims is from neuropathy. Some muscle loss and some contractures are noted. PSYCH: Normal mood, normal affect. Judgment and insight within normal limits. SKIN: No significant ecchymosis, skin is noted to be warm. MUSCULOSKELETAL EXAM: Patient describes charcoats involvement of multiple lower extremity joint preventing him from weightbearing. Joint swelling is noted. Results Laboratory Results: 05/04/18 06:34 05/04/18 06:34 05/04/18 05/04/18 06:34 06:34 WBC 7.7 RBC 3.31 L Hgb 10.2 L Hct 29.4 L MCV 89 MCH 31.0 MCHC 34.8 RDW 15.0 H Plt Count 221 Sodium 140.9 Potassium 3.3 L Chloride 99 Carbon Dioxide 29 Anion Gap 13 BUN 42 H D Creatinine 5.99 H Est GFR ( Amer) 12 L Est GFR (Non-Af Amer) 10 L Glucose 151 H Calcium 7.2 L Magnesium 1.8 05/03/18 05/03/18 05/04/18 17:59 17:59 00:15 Creatine Kinase 73 55 CK-MB (CK-2) 1.65 Troponin I 0.017 NT-Pro-B Natriuret Pep 05/04/18 05/04/18 00:15 06:34 Creatine Kinase CK-MB (CK-2) 1.47 Troponin I 0.013 NT-Pro-B Natriuret Pep 4170 H EKG Comments: Telemetry shows sinus rhythm without any sustained tachycardia or bradycardia. Impressions: Chest X-Ray 05/03/18 02:53 IMPRESSION: Moderate left lower lobar pneumonia. Recommend CR/CT surveillance including at 7-12 weeks following initiation of clinically warranted therapy. Chest CT 05/03/18 08:31 IMPRESSION: Stable, chronic small left pleural effusion and rounded atelectasis. Assessment & Plan - Diagnosis (1) Chest pain Qualifiers: Chest pain type: unspecified Qualified Code(s): R07.9 - Chest pain, unspecified Is this a current diagnosis for this admission?: Yes (2) CAD (coronary artery disease) Qualifiers: Coronary Disease-Associated Artery/Lesion type: [place] artery [place] vs. transplanted heart: [place] heart Associated angina: angina presence unspecified Qualified Code(s): I25.10 - Atherosclerotic heart disease of [place] coronary artery without angina pectoris Is this a current diagnosis for this admission?: Yes (3) CKD (chronic kidney disease) stage 5, GFR less than 15 ml/min Is this a current diagnosis for this admission?: Yes (4) COPD (chronic obstructive pulmonary disease) Qualifiers: COPD type: unspecified COPD Qualified Code(s): J44.9 - Chronic obstructive pulmonary disease, unspecified Is this a current diagnosis for this admission?: Yes (5) Obesity Is this a current diagnosis for this admission?: Yes (6) Sleep apnea syndrome Qualifiers: Sleep apnea type: unspecified type Qualified Code(s): G47.30 - Sleep apnea , unspecified Is this a current diagnosis for this admission?: Yes - Notes Notes: Chest pain: Patient has numerous cardiac risk factors therefore there is high probability that chest pain could be from coronary artery disease. Patient completed stress part of the 2-day protocol with pharmacologic stress agent. A 2D echocardiogram shows mild to moderate LVH, no significant valvular abnormalities noted. Grade 2 diastolic dysfunction noted. RV seems mild to moderately dilated. Study was somewhat technically difficult and limited therefore clinical correlation is requested. Coronary artery disease: Patient gives a history of CAD. Patient's medical regimen to be optimized. Chronic kidney disease: Currently is stable. Patient on dialysis therapy. Patient being evaluated by pulmonary physical therapist. COPD: Recommend continuing home bronchodilator and steroid therapy. Obesity: Patient has significant obesity. He will benefit from weight loss. Sleep apnea syndrome: Patient advised to bring his CPAP machine and use it at night and on as needed basis during the day. This was explained to the patient. Diabetes: Patient has significant complications from diabetes. Patient being well managed by supervisor area. - Time Time with patient: Greater than 35 minutes - CODE STATUS was discussed, patient remains full code. Surrogate decision-maker patient's . Multiple medical problems were addressed. More than 50% of the time spent coordinating care, discussing management plans with involved caregivers. Management plans discussed with involved personnels. Medical decision making was of moderate to high complexity, patient's has multiple comorbidities. Medications reviewed and adjusted accordingly: Yes
[2018-05-04] MEDS ORDERED: INSULIN GLARGINE,HUM.REC.ANLOG 300 UNIT/3 ML INSULN.PEN SUBCUT SCH (22:00)
[2018-05-05] MEDS ORDERED: EPOETIN ALFA INJ 20000 UNIT/1 ML VIAL (RENAL) IV PRN ×2 (05:00→09:07)
[2018-05-05 05:22] LABS: HEMATOCRIT 29.1 % (37.9-51.0); HEMOGLOBIN 9.9 g/dL (13.5-17.0); MEAN CORPUSCULAR HEMOGLOBIN 31.2 pg (27.0-33.4); MEAN CORPUSCULAR HGB CONC 34.1 g/dL (32.0-36.0); MEAN CORPUSCULAR VOLUME 92 fl (80-97); PLATELET COUNT 249 10^3/uL (150-450); RED BLOOD COUNT 3.18 10^6/uL (4.35-5.55); RED CELL DISTRIBUTION WIDTH 15.2 % (11.5-14.0); WHITE BLOOD COUNT 6.8 10^3/uL (4.0-10.5)
[2018-05-05 05:50] LABS: ANION GAP 19 (5-19); BLOOD UREA NITROGEN 48 mg/dL (7-20); CALCIUM 7.3 mg/dL (8.4-10.2); CARBON DIOXIDE 25 mmol/L (22-30); CHLORIDE 96 mmol/L (98-107); GLUCOSE 200 mg/dL (75-110); POTASSIUM 3.7 mmol/L (3.6-5.0); SODIUM 140.3 mmol/L (137-145)
[2018-05-05] MEDS: LEVOTHYROXINE SODIUM 0.075 MG TABLET PO SCH (05:58)
[2018-05-05] MEDS: HEPARIN SOD (PORCINE) 5,000 UNIT/ML 1 ML SYRINGE SUBCUT SCH ×2 (05:58→14:08)
[2018-05-05] MEDS: INSULIN LISPRO 100 UNIT/ML 3 ML VIAL SUBCUT PRN (06:56)
--- NOTE | 2018-05-05 08:42 | EKG REPORT ---
SEVERITY:- BORDERLINE ECG - SINUS RHYTHM BORDERLINE T ABNORMALITIES, INFERIOR LEADS : Confirmed by: Elizabeth Dial 05-May-2018 08:41:51
[2018-05-05] MEDS ORDERED: EPOETIN ALFA 10,000 UNIT in SYRINGE, DISPOSABLE, 1 EACH IV PRN (09:11)
--- NOTE | 2018-05-05 11:27 | PDOC PROGRESS REPORT ---
Subjective Progress Note for:: 05/05/18 Reason For Visit: Patient seen today on dialysis. He is undergoing dialysis without any issues. He denies any history of chest pain or shortness of breath. Vital signs are stable. Labs and medications were reviewed with the patient. He says he has been discharged home today. Physical Exam Vital Signs: Temp Pulse Resp BP Pulse Ox 97.5 F 62 15 120/70 97 05/05/18 03:25 05/05/18 03:25 05/05/18 04:36 05/05/18 03:25 05/05/18 04:36 Intake & Output 05/04/18 05/05/18 05/06/18 06:59 06:59 06:59 Intake Total 437 691 Output Total 2450 0 -2012 691 Weight 146.7 kg 150.4 kg General appearance: PRESENT: no acute distress Respiratory exam: PRESENT: clear to auscultation nelson. ABSENT: crackles Cardiovascular exam: PRESENT: +S1, +S2, systolic murmur GI/Abdominal exam: PRESENT: normal bowel sounds, soft. ABSENT: organomegaly, tenderness Extremities exam: ABSENT: pedal edema Neurological exam: PRESENT: alert, awake, oriented to person, oriented to place Results Laboratory Results: 05/05/18 03:51 05/05/18 03:51 05/05/18 05/05/18 03:51 03:51 WBC 6.8 RBC 3.18 L Hgb 9.9 L Hct 29.1 L MCV 92 MCH 31.2 MCHC 34.1 RDW 15.2 H Plt Count 249 Sodium 140.3 Potassium 3.7 Chloride 96 L Carbon Dioxide 25 Anion Gap 19 BUN 48 H Creatinine 7.33 H Est GFR ( Amer) 9 L Est GFR (Non-Af Amer) 8 L Glucose 200 H Calcium 7.3 L Magnesium 1.9 05/03/18 05/03/18 05/04/18 17:59 17:59 00:15 Creatine Kinase 73 55 CK-MB (CK-2) 1.65 Troponin I 0.017 NT-Pro-B Natriuret Pep 05/04/18 05/04/18 05/05/18 00:15 06:34 03:51 Creatine Kinase CK-MB (CK-2) 1.47 Troponin I 0.013 NT-Pro-B Natriuret Pep 4170 H 4060 H Impressions: Chest X-Ray 05/03/18 02:53 IMPRESSION: Moderate left lower lobar pneumonia. Recommend CR/CT surveillance including at 7-12 weeks following initiation of clinically warranted therapy. Chest CT 05/03/18 08:31 IMPRESSION: Stable, chronic small left pleural effusion and rounded atelectasis. Assessment & Plan - Diagnosis (1) Chest pain Qualifiers: Chest pain type: unspecified Qualified Code(s): R07.9 - Chest pain, unspecified Is this a current diagnosis for this admission?: Yes Plan: As per cardiology. Currently asymptomatic and stable. (2) ESRD (end stage renal disease) on dialysis Is this a current diagnosis for this admission?: Yes Plan: Patient currently undergoing dialysis without any issues. Is being supervised to ensure safe and smooth procedure. Vital signs are stable. Plan to remove between 2 and 3 L as tolerated. Labs and medications were reviewed with the patient. Dialysis orders were reviewed with the treating dialysis nurse.If he is discharged and he will continue on his home hemodialysis program. (3) Diabetes mellitus Qualifiers: Diabetes mellitus type: type 2 Diabetes mellitus complication status: with kidney complications Diabetes mellitus complication detail: with nephropathy Is this a current diagnosis for this admission?: Yes Plan: Advised tight control. (4) Hypothyroidism Qualifiers: Hypothyroidism type: unspecified Qualified Code(s): E03.9 - Hypothyroidism , unspecified Is this a current diagnosis for this admission?: Yes Plan: On replacements.
--- NOTE | 2018-05-05 13:47 | PDOC PROGRESS REPORT ---
Subjective Progress Note for:: 05/05/18 Subjective:: Patient is currently doing well Patient's going for the stress test today Patient's denied any chest pain denied any shortness of the breath No fever On blood culture is positive most likely a contaminated while patient does not have any sign of any sepsis Reason For Visit: CHEST PAIN,ESRD,PNEUMONIA Physical Exam Vital Signs: Temp Pulse Resp BP Pulse Ox 97.5 F 65 15 120/70 97 05/05/18 03:25 05/05/18 07:00 05/05/18 04:36 05/05/18 03:25 05/05/18 04:36 Intake & Output 05/04/18 05/05/18 05/06/18 06:59 06:59 06:59 Intake Total 437 691 150.5 Output Total 2450 0 0 -2012 691 150.5 Weight 146.7 kg 150.4 kg General appearance: PRESENT: no acute distress, well-developed, well-nourished Head exam: PRESENT: atraumatic, normocephalic Eye exam: PRESENT: conjunctiva pink, EOMI, PERRLA. ABSENT: scleral icterus Ear exam: PRESENT: normal external ear exam Mouth exam: PRESENT: moist, tongue midline Neck exam: PRESENT: full ROM. ABSENT: carotid bruit, JVD, lymphadenopathy, thyromegaly Respiratory exam: PRESENT: clear to auscultation nelson Cardiovascular exam: PRESENT: RRR. ABSENT: diastolic murmur, rubs, systolic murmur Pulses: PRESENT: normal dorsalis pedis pul, +2 pedal pulses bilateral Vascular exam: PRESENT: normal capillary refill GI/Abdominal exam: PRESENT: normal bowel sounds, soft. ABSENT: distended, guarding, mass, organolmegaly, rebound, tenderness Rectal exam: PRESENT: deferred Neurological exam: PRESENT: alert, awake, oriented to person, oriented to place , oriented to time, oriented to situation, CN II-XII grossly intact. ABSENT: motor sensory deficit Psychiatric exam: PRESENT: appropriate affect, normal mood. ABSENT: homicidal ideation, suicidal ideation Skin exam: PRESENT: dry, intact, warm. ABSENT: cyanosis, rash Results Laboratory Results: 05/05/18 03:51 05/05/18 03:51 05/05/18 05/05/18 03:51 03:51 WBC 6.8 RBC 3.18 L Hgb 9.9 L Hct 29.1 L MCV 92 MCH 31.2 MCHC 34.1 RDW 15.2 H Plt Count 249 Sodium 140.3 Potassium 3.7 Chloride 96 L Carbon Dioxide 25 Anion Gap 19 BUN 48 H Creatinine 7.33 H Est GFR ( Amer) 9 L Est GFR (Non-Af Amer) 8 L Glucose 200 H Calcium 7.3 L Magnesium 1.9 05/03/18 05/03/18 05/04/18 17:59 17:59 00:15 Creatine Kinase 73 55 CK-MB (CK-2) 1.65 Troponin I 0.017 NT-Pro-B Natriuret Pep 05/04/18 05/04/18 05/05/18 00:15 06:34 03:51 Creatine Kinase CK-MB (CK-2) 1.47 Troponin I 0.013 NT-Pro-B Natriuret Pep 4170 H 4060 H Impressions: Chest X-Ray 05/03/18 02:53 IMPRESSION: Moderate left lower lobar pneumonia. Recommend CR/CT surveillance including at 7-12 weeks following initiation of clinically warranted therapy. Chest CT 05/03/18 08:31 IMPRESSION: Stable, chronic small left pleural effusion and rounded atelectasis. Assessment & Plan - Diagnosis (1) Chest pain Qualifiers: Chest pain type: unspecified Qualified Code(s): R07.9 - Chest pain, unspecified Is this a current diagnosis for this admission?: Yes Plan: We wait for the stress test most likely pleuritic pain (2) CAD (coronary artery disease) Qualifiers: Coronary Disease-Associated Artery/Lesion type: [place] artery [place] vs. transplanted heart: [place] heart Associated angina: angina presence unspecified Qualified Code(s): I25.10 - Atherosclerotic heart disease of [place] coronary artery without angina pectoris Is this a current diagnosis for this admission?: Yes Plan: Follow with the cardiology (3) CKD (chronic kidney disease) stage 5, GFR less than 15 ml/min Is this a current diagnosis for this admission?: Yes Plan: Currently on hemodialysis (4) COPD (chronic obstructive pulmonary disease) Qualifiers: COPD type: unspecified COPD Qualified Code(s): J44.9 - Chronic obstructive pulmonary disease, unspecified Is this a current diagnosis for this admission?: Yes Plan: Continue some nebulizer treatments (5) Diabetes mellitus Qualifiers: Diabetes mellitus type: type 2 Diabetes mellitus complication status: with kidney complications Diabetes mellitus complication detail: with nephropathy Is this a current diagnosis for this admission?: Yes Plan: Continue sliding-scale (6) ESRD (end stage renal disease) on dialysis Is this a current diagnosis for this admission?: Yes (7) Hypothyroidism Qualifiers: Hypothyroidism type: unspecified Qualified Code(s): E03.9 - Hypothyroidism , unspecified Is this a current diagnosis for this admission?: Yes (8) Left lower lobe pneumonia Qualifiers: Pneumonia type: due to unspecified organism Qualified Code(s): J18.1 - Lobar pneumonia, unspecified organism Is this a current diagnosis for this admission?: Yes Plan: Patient's CT scan review small effusions will cover with antibiotics (9) Secondary hyperparathyroidism Is this a current diagnosis for this admission?: Yes (10) Sleep apnea syndrome Qualifiers: Sleep apnea type: unspecified type Qualified Code(s): G47.30 - Sleep apnea , unspecified Is this a current diagnosis for this admission?: Yes (11) Tear of skin of plantar aspect of foot Qualifiers: Encounter type: initial encounter Laterality: right Qualified Code(s): S91.311A - Laceration without foreign body, right foot, initial encounter Is this a current diagnosis for this admission?: Yes - Time Time Spent with patient: 15-24 minutes Medications reviewed and adjusted accordingly: Yes Anticipated discharge: Home Within: within 24 hours - Inpatient Certification Medical Necessity: Need Close Monitoring Due to Risk of Patient Decompensation Post Hospital Care: D/C [employer] Documentation - Plan Summary Plan Summary: Continues to current medications will wait for the stress test if in negative patients can discharge home today
[2018-05-05] MEDS: FUROSEMIDE 20 MG TABLET PO SCH (14:07)
[2018-05-05] MEDS: DOCUSATE SODIUM 100 MG CAPSULE PO SCH ×2 (14:07→17:05)
[2018-05-05] MEDS: LEVOFLOXACIN 250 MG TABLET PO SCH (14:07)
[2018-05-05] MEDS: PREGABALIN 100 MG CAPSULE PO SCH ×2 (14:07→17:05)
[2018-05-05] MEDS: CEFEPIME 1 GM/D5W RTU 1 GM/50 ML RTUPB IV SCH (14:08)
--- NOTE | 2018-05-05 16:44 | PDOC DISCHARGE SUMMARY ---
General - Admit/Disc Date/PCP Admission Date/Primary Care Provider: 05/03/18 08:34 PADMINI BOND MD Discharge Date: 05/05/18 - Discharge Diagnosis (1) Chest pain Is this a current diagnosis for this admission?: Yes Summary: Patient's stress test is all stable per cardiology suggest to follow outpatient Most likely pleuritic chest pain (2) CAD (coronary artery disease) Is this a current diagnosis for this admission?: Yes Summary: Currently all stable per cardiology (3) CKD (chronic kidney disease) stage 5, GFR less than 15 ml/min Is this a current diagnosis for this admission?: Yes Summary: Currently on hemodialysis (4) COPD (chronic obstructive pulmonary disease) Is this a current diagnosis for this admission?: Yes Summary: Currently all stable (5) Diabetes mellitus Is this a current diagnosis for this admission?: Yes Summary: His current medication (6) ESRD (end stage renal disease) on dialysis Is this a current diagnosis for this admission?: Yes (7) Hypothyroidism Is this a current diagnosis for this admission?: Yes Summary: Continue all stable (8) Left lower lobe pneumonia Is this a current diagnosis for this admission?: Yes Summary: Continue Ceftin for 7 days (9) Secondary hyperparathyroidism Is this a current diagnosis for this admission?: Yes (10) Sleep apnea syndrome Is this a current diagnosis for this admission?: Yes (11) Tear of skin of plantar aspect of foot Is this a current diagnosis for this admission?: Yes - Additional Information Resuscitation Status: Full Code Discharge Diet: Diabetic Discharge Activity: Activity As Tolerated Prescriptions: Cefuroxime Axetil [Ceftin 250 mg Tablet] 1 tab PO BID #14 tablet Home Medications: Pregabalin [Lyrica] 200 mg PO BID 04/22/17 Furosemide [Lasix 20 mg Tablet] 20 mg PO DAILY 05/03/18 Insulin Glargine,Hum.rec.anlog [Lantus Insulin 100 Unit/mL] 40 unit SUBCUT QHS 05/03/18 Ipratropium/Albuterol Sulfate [Iprat-Albut 0.5-3(2.5) mg/3 ml] 3 ml IH QID 05/03 Levothyroxine Sodium [Synthroid 0.075 mg Tablet] 0.075 mg PO DAILY 05/03/18 Cefuroxime Axetil [Ceftin 250 mg Tablet] 1 tab PO BID #14 tablet 05/05/18 History of Present Illness History of Present Illness: RITA GAFFNEY is a 58 year old male This is a 58-year-old male with end-stage renal disease on currently on home hemodialysis and a history of coronary artery disease status post stent placement history of sleep apnea history of type 2 diabetes and a chronic neuropathyCame to the emergency department with a complaint for chest pain started last night patients took 1 aspirin and 2 nitroglycerin in patients receiving some pain medications in patients feeling better when I see the emergency department Patient's most complaining of right-sided pain not on the left patient's denied any cough no conditions no fever no chills In the emergency department initial chest x-ray suggest possible pneumonia receiving IV antibiotic patient was admitting in the hospital her back in the last year with a left-sided pneumonia Patient seen by Dr. Dial center consultant since couple of months back and according to the patient and patient had a stress test on 6 month back Patient's otherwise denied any other symptoms Discussed with the patient and the to admit in the hospital with the multiple risk factor for further evaluations Discuss with the nephrology for possible dialysis today Hospital Course Hospital Course: This is a 58-year-old male the multiple medical problems as above came with the complaint of chest pain she is complaining mostly left-sided with the most likely pleuritic type But multiple risk factor patient admitting in the hospital for further evaluations Patient's underwent for the Cardiolite stress test and echocardiogram and according to the cardiology is all stable patient discharged home and follow outpatients Patient's chest x-ray is all stable and the CT of the chest was done of a small left-sided pleural effusions Patient is otherwise afebrile Patient's doing well no more chest pain Discussed with the patient and the regarding the patient's current condition the test reports At this point patient is discharged home with the stable conditions Seen by the nephrology Physical Exam Vital Signs: Temp Pulse Resp BP Pulse Ox 97.5 F 69 15 120/70 97 05/05/18 03:25 05/05/18 14:00 05/05/18 04:36 05/05/18 03:25 05/05/18 04:36 Intake & Output 05/04/18 05/05/18 05/06/18 06:59 06:59 06:59 Intake Total 437 741 150.5 Output Total 2450 0 0 -2012 741 150.5 Weight 146.7 kg 150.4 kg General appearance: PRESENT: no acute distress, well-developed, well-nourished Head exam: PRESENT: atraumatic, normocephalic Eye exam: PRESENT: conjunctiva pink, EOMI, PERRLA. ABSENT: scleral icterus Ear exam: PRESENT: normal external ear exam Mouth exam: PRESENT: moist, tongue midline Neck exam: PRESENT: full ROM. ABSENT: carotid bruit, JVD, lymphadenopathy, thyromegaly Respiratory exam: PRESENT: clear to auscultation nelson Cardiovascular exam: PRESENT: RRR. ABSENT: diastolic murmur, rubs, systolic murmur Pulses: PRESENT: normal dorsalis pedis pul, +2 pedal pulses bilateral Vascular exam: PRESENT: normal capillary refill GI/Abdominal exam: PRESENT: normal bowel sounds, soft. ABSENT: distended, guarding, mass, organolmegaly, rebound, tenderness Rectal exam: PRESENT: deferred Extremities exam: ABSENT: pedal edema Musculoskeletal exam: PRESENT: ambulatory Neurological exam: PRESENT: alert, awake, oriented to person, oriented to place , oriented to time, oriented to situation, CN II-XII grossly intact. ABSENT: motor sensory deficit Psychiatric exam: PRESENT: appropriate affect, normal mood. ABSENT: homicidal ideation, suicidal ideation Skin exam: PRESENT: dry, intact, warm. ABSENT: cyanosis, rash Results Laboratory Results: 05/05/18 03:51 05/05/18 03:51 05/05/18 05/05/18 03:51 03:51 WBC 6.8 RBC 3.18 L Hgb 9.9 L Hct 29.1 L MCV 92 MCH 31.2 MCHC 34.1 RDW 15.2 H Plt Count 249 Sodium 140.3 Potassium 3.7 Chloride 96 L Carbon Dioxide 25 Anion Gap 19 BUN 48 H Creatinine 7.33 H Est GFR ( Amer) 9 L Est GFR (Non-Af Amer) 8 L Glucose 200 H Calcium 7.3 L Magnesium 1.9 05/03/18 05/03/18 05/04/18 17:59 17:59 00:15 Creatine Kinase 73 55 CK-MB (CK-2) 1.65 Troponin I 0.017 NT-Pro-B Natriuret Pep 05/04/18 05/04/1818 00:15 06:34 03:51 Creatine Kinase CK-MB (CK-2) 1.47 Troponin I 0.013 NT-Pro-B Natriuret Pep 4170 H 4060 H Impressions: Chest X-Ray 05/03/18 02:53 IMPRESSION: Moderate left lower lobar pneumonia. Recommend CR/CT surveillance including at 7-12 weeks following initiation of clinically warranted therapy. Chest CT 05/03/18 08:31 IMPRESSION: Stable, chronic small left pleural effusion and rounded atelectasis. Qualifiers - * PATIENT BEING DISCHARGED WITH ANY OF THE FOLLOWING DIAGNOSIS: No VTE patient discharged on overlapping Therapy?: Yes Plan Time Spent: Greater than 30 Minutes - Patient is discharged home with the stable conditions follow outpatients cardiology Follow hemodialysis as scheduled Following office 1 week
[2018-05-05 16:49] VITALS: BP 116/68
--- NOTE | 2018-05-06 19:27 | DRAGON STRESS TEST REPORT ---
INTRAVENOUS LEXISCAN CARDIOLITE STRESS TEST USING SINGLE PHOTON EMMISION COMPUTERIZED TOMOGRAPHIC. DATE OF PROCEDURE: May 04, 2018, INDICATION : Chest pain CARDIAC RISK FACTORS: Diabetes, hypertension, dyslipidemia, family history of CAD. RESTING EKG: Sinus rhythm, LVH with secondary ST-T wave changes STRESS EKG: No significant ST segment changes noted with LexiScan bolus REASON FOR TERMINATION: Protocol. PROCEDURE REPORT: Baseline heart rate 67 beats per minute with blood pressure of 155/50. Patient had no significant complaints. Patient was bolused with Lexiscan 0.4 mg intravenously followed by saline bolus. Heart rate at 2 minutes post bolus 72 with a blood pressure of 105/50. 3 minutes post bolus heart rate 72 with blood pressure of 102/60. No significant EKG changes were noted. Patient had no significant complaints during the procedure or postprocedure. CONCLUSIONS: Normal EKG and hemodynamic response to IV LexiScan. NUCLEAR DATA: Stress images were performed on day 2 that is May 05, at rest the patient was given 39.3 millicuries of technetium 99 sestamibi injected intravenously. As per protocol rest gated SPECT images were obtained. On day of stress test, on May 04, the patient was given intravenous LexiScan at a dose of 0.4 mg in 5 mL intravenously, followed by flush with normal saline. Subsequently the stress dose of 42.2 millicuries of technetium 99 sestamibi was injected intravenously. As per protocol stress gated images were obtained. NUCLEAR INTERPRETATION: Both raw and processed data were used for interpretation. Visual, qualitative, computer-generated quantitative data was used. There was good myocardial uptake of technetium compound. Motion artifact and soft tissue attenuations were noted. Increased visceral uptake was noted. There was significant overlap of liver uptake and inferior wall myocardial uptake, inferior wall perfusion cannot be accurately commented upon. However these observations are being made. No definitive areas of transient perfusion defect noted, mild fixed defect noted in the inferior wall consistent with mild scar. EKG gated imaging showed LV EF at 49 %, rest and stress gated EF similar visually. T. I D. ratio was 1.09. Lung heart ratio noted to be within normal limits 0.41. No significant extracardiac and abnormal radiotracer activities were noted. RV free wall uptake was noted to be WNL. IMPRESSION: Also refer to comments under nuclear interpretation. Also test results needs to be interpreted in the context of pretest probability. 1. No definitive areas of transient perfusion defect noted. 2. Mild fixed defect noted involving the inferior wall this is consistent with mild scar. 3. EKG gated imaging shows left ventricular ejection fraction of approx. 49 %. 4. Clinical correlation requested as occasionally single vessel disease or balanced ischemia could be missed. In approximately 10% of the cases Lexiscan may not cause adequate vasodilatory stress. RECOMMENDATIONS: Aggressive risk factor modification and medical management. Further evaluation may be needed if continued symptoms or other high risk indicators are noted on clinical evaluation. Close cardiology follow-up is also recommended. Clinical correlation with echocardiogram derived ejection fraction. Inability to exercise by itself can lead to increased cardiovascular event risks. Consider cardiology consultation and or follow-up if clinically indicated. I am available for cardiology evaluation and consultation if requested by the poultry offal worker, unless patient already has a sap crm developer. Dr. Melchor Dial. MRCP Board certified in cardiology and sleep medicine. Board certified in nuclear cardiology, adult echocardiography. [place]
--- NOTE | 2018-05-06 20:12 | PDOC PROGRESS REPORT ---
Subjective Progress Note for:: 05/05/18 Subjective:: Patient seen on dialysis. Seems to be tolerating this well. Patient seems to be doing better with gradual improvement. Patient has noted some nausea. Pt is denying any chest arm or neck discomfort. Patient denying any PND, orthopnea. Patient denied any sustained palpitations, dizziness, syncope, near syncope. Patient denying any fever chills. Patient denying any other significant discomfort. Patient to have rest part of the nuclear stress test today, no significant complaints are noted. Patient is maintaining sinus rhythm. Review of systems: Rest review of systems negative. Medications: Medications have been reviewed. Reason For Visit: CHEST PAIN,ESRD,PNEUMONIA Physical Exam Vital Signs: Temp Pulse Resp BP Pulse Ox 97.5 F 69 15 116/68 97 05/05/18 16:41 05/05/18 16:41 05/05/18 16:41 05/05/18 16:41 05/05/18 16:41 Intake & Output 05/04/18 05/05/18 05/06/18 06:59 06:59 06:59 Intake Total 437 741 200.5 Output Total 2450 0 2800 -2012 741 -2599.5 Weight 146.7 kg 150.4 kg Exam: GENERAL: well-nourished and in no acute distress. Alert and oriented x3 HEAD: Atraumatic, normocephalic. EYES: Pupils equal round and reactive to light, extraocular movements intact, sclera anicteric, conjunctiva are normal. ENT: TMs normal, nares patent, oropharynx clear without exudates. Moist mucous membranes. No oral ulcerations or bleeding gums noted NECK: supple without lymphadenopathy. Trachea is central. No cervical or axillary lymphadenopathy noted. Carotids are 2+, JVD WNL LUNGS: Respiration seems nonlabored, no significant accessory muscle action noted. Breath sounds clear to auscultation bilaterally and equal noted. No wheezes rales or rhonchi noted. No significant dullness noted on percussion. CHEST: Palpation of the chest wall shows no significant chest wall tenderness. 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 ABDOMEN: Soft, no significant tenderness appreciated, normoactive bowel sounds. No guarding, no rebound. No rigidity noted . No masses appreciated. EXTREMITIES: Pedal pulses are 1-2+, no calf tenderness noted. No clubbing or cyanosis. negative pedal edema noted NEUROLOGICAL: Focused neurological exam showed no significant neurologic deficit. Normal speech, left upper extremity weakness noted secondary to peripheral neuropathy but patient. PSYCH: Normal mood, normal affect. Judgment and insight within normal limits. SKIN: No significant ecchymosis, skin is noted to be warm. MUSCULOSKELETAL EXAM: No significant acute joint swelling noted. Lower extremity joint deformity noted consistent with Charcot's arthropathy. Results Laboratory Results: 05/05/18 03:51 05/05/18 03:51 05/05/18 05/05/18 03:51 03:51 WBC 6.8 RBC 3.18 L Hgb 9.9 L Hct 29.1 L MCV 92 MCH 31.2 MCHC 34.1 RDW 15.2 H Plt Count 249 Sodium 140.3 Potassium 3.7 Chloride 96 L Carbon Dioxide 25 Anion Gap 19 BUN 48 H Creatinine 7.33 H Est GFR ( Amer) 9 L Est GFR (Non-Af Amer) 8 L Glucose 200 H Calcium 7.3 L Magnesium 1.9 05/03/18 05/03/18 05/04/18 17:59 17:59 00:15 Creatine Kinase 73 55 CK-MB (CK-2) 1.65 Troponin I 0.017 NT-Pro-B Natriuret Pep 05/04/18 05/04/18 05/05/18 00:15 06:34 03:51 Creatine Kinase CK-MB (CK-2) 1.47 Troponin I 0.013 NT-Pro-B Natriuret Pep 4170 H 4060 H EKG Comments: Telemetry shows sinus rhythm without any sustained tachycardia or bradycardia arrhythmias. Impressions: Chest X-Ray 05/03/18 02:53 IMPRESSION: Moderate left lower lobar pneumonia. Recommend CR/CT surveillance including at 7-12 weeks following initiation of clinically warranted therapy. Chest CT 05/03/18 08:31 IMPRESSION: Stable, chronic small left pleural effusion and rounded atelectasis. Assessment & Plan - Diagnosis (1) Chest pain Qualifiers: Chest pain type: unspecified Qualified Code(s): R07.9 - Chest pain, unspecified Is this a current diagnosis for this admission?: Yes (2) CAD (coronary artery disease) Qualifiers: Coronary Disease-Associated Artery/Lesion type: [place] artery [place] vs. transplanted heart: [place] heart Associated angina: angina presence unspecified Qualified Code(s): I25.10 - Atherosclerotic heart disease of [place] coronary artery without angina pectoris Is this a current diagnosis for this admission?: Yes (3) CKD (chronic kidney disease) stage 5, GFR less than 15 ml/min Is this a current diagnosis for this admission?: Yes (4) COPD (chronic obstructive pulmonary disease) Qualifiers: COPD type: unspecified COPD Qualified Code(s): J44.9 - Chronic obstructive pulmonary disease, unspecified Is this a current diagnosis for this admission?: Yes (5) Obesity Is this a current diagnosis for this admission?: Yes (6) Sleep apnea syndrome Qualifiers: Sleep apnea type: unspecified type Qualified Code(s): G47.30 - Sleep apnea , unspecified Is this a current diagnosis for this admission?: Yes - Notes Notes: Chest pain: Patient has numerous cardiac risk factors therefore there is high probability that chest pain could be from coronary artery disease. Patient completed stress part of the 2-day protocol with pharmacologic stress agent. A 2D echocardiogram shows mild to moderate LVH, no significant valvular abnormalities noted. Grade 2 diastolic dysfunction noted. RV seems mild to moderately dilated. Study was somewhat technically difficult and limited therefore clinical correlation is requested. No definite transient perfusion defect or ischemia noted. Cannot rule out fixed defect in the inferior wall. Inferior wall perfusion was difficult to comment on because of significant overlap with hepatic uptake. Coronary artery disease: Patient gives a history of CAD. Patient's medical regimen to be optimized. Chronic kidney disease: Currently is stable. Patient on dialysis therapy. Patient being evaluated by general magistrate. COPD: Recommend continuing home bronchodilator and steroid therapy. Obesity: Patient has significant obesity. He will benefit from weight loss. Sleep apnea syndrome: Patient advised to bring his CPAP machine and use it at night and on as needed basis during the day. This was explained to the patient. Diabetes: Patient has significant complications from diabetes. Patient being well managed by clamp operator. Stress test results are reviewed with the patient. Patient will need close cardiology follow-up. This was explained. - Time Time with patient: Greater than 35 minutes - CODE STATUS was discussed, patient remains full code. Surrogate decision-maker patient's . Multiple medical problems were addressed. More than 50% of the time spent coordinating care, discussing management plans with involved caregivers. Management plans discussed with involved personnels. Medical decision making was of moderate to high complexity, patient's has multiple comorbidities. Medications reviewed and adjusted accordingly: Yes
== END 2018-05-05 17:25 | disposition home or self-care (01) | DRG 204 ==
LOC: ER 02:33 → EH 08:34 → 3N 10:54
PROVIDERS: ADMIT Family Medicine; ATTEND Family Medicine
PROC: 5A09457 Assistance with Respiratory Ventilation, 24-96 Consecutive Hours, Continuous Positive Airway Pressure (ICD-10-PCS; principal; 2018-05-03)
DX: R07.1 Chest pain on breathing (principal); N18.6 End stage renal disease; I13.2 Hypertensive heart and chronic kidney disease with heart failure and with stage 5 chronic kidney disease, or end stage renal disease; N25.81 Secondary hyperparathyroidism of renal origin; Z68.42 Body mass index [BMI] 45.0-49.9, adult; I25.10 Atherosclerotic heart disease of native coronary artery without angina pectoris; E11.22 Type 2 diabetes mellitus with diabetic chronic kidney disease; I50.9 Heart failure, unspecified; Z95.5 Presence of coronary angioplasty implant and graft; G47.30 Sleep apnea, unspecified; E11.40 Type 2 diabetes mellitus with diabetic neuropathy, unspecified; I48.91 Unspecified atrial fibrillation; E78.5 Hyperlipidemia, unspecified; J44.9 Chronic obstructive pulmonary disease, unspecified; E03.9 Hypothyroidism, unspecified; K21.9 Gastro-esophageal reflux disease without esophagitis; M19.90 Unspecified osteoarthritis, unspecified site; F32.9 Major depressive disorder, single episode, unspecified; D63.1 Anemia in chronic kidney disease; Z99.2 Dependence on renal dialysis; Z82.49 Family history of ischemic heart disease and other diseases of the circulatory system; Z79.4 Long term (current) use of insulin; Z79.899 Other long term (current) drug therapy; S91.311A Laceration without foreign body, right foot, initial encounter; E66.9 Obesity, unspecified; M14.672 Charcot's joint, left ankle and foot; X58.XXXA Exposure to other specified factors, initial encounter
CPT/HCPCS: 36415; 71045; 71250; 78452; 80048; 80053; 82550; 82553; 82962; 83735; 83880; 84484; 85025; 85027; 87040; 87077; 87186; 93005; 93010; 93017; 93306; 94660; A9500; J0692; J0696; J0706; J1644; J1815; J2785; J3010; J3490; Q4081; Q9969; S0119

== ENCOUNTER 2019-03-05 19:24 | Emergency (ER) | payer MEDICARE, MEDICAID ==
[~2019-03-05 19:24] MED LIST: AMIODARONE HCL INJ 150 MG/3 ML VIAL IV ONE; CALCIUM GLUCONATE 1000 MG/10 ML INJ IV ONE; EPINEPHRINE INJ 1 MG/10 ML DISP.SYRIN ONE; SODIUM BICARBONATE 8.4% INJ 50 MEQ/50 ML DISP.SYRIN ONE
[2019-03-05] MEDS ORDERED: ACETAMINOPHEN 325 MG TABLET PO ONE (20:02)
[2019-03-05 20:15] LABS: HEMATOCRIT 25.9 % (37.9-51.0); HEMOGLOBIN 8.1 g/dL (13.5-17.0); MEAN CORPUSCULAR HEMOGLOBIN 27.9 pg (27.0-33.4); MEAN CORPUSCULAR HGB CONC 31.4 g/dL (32.0-36.0); MEAN CORPUSCULAR VOLUME 89 fl (80-97); PLATELET COUNT 270 10^3/uL (150-450); RED CELL DISTRIBUTION WIDTH 16.5 % (11.5-14.0); WHITE BLOOD COUNT 19.6 10^3/uL (4.0-10.5)
[2019-03-05 20:17] LABS: VENOUS BLOOD BASE EXCESS 4.5 mmol/L; VENOUS BLOOD HCO3 29.7 mmol/L (20-32); VENOUS BLOOD PCO2 47.9 mmHg (35-63); VENOUS BLOOD PH 7.41 (7.30-7.42)
[2019-03-05 20:20] LABS: INTERNATIONAL RATION (INR) 1.38; PROTHROMBIN TIME 17.7 SEC (11.4-15.4)
--- NOTE | 2019-03-05 20:22 | RADIOLOGY REPORT (SQ) ---
EXAM DESCRIPTION: [facility]: XR CHEST 1 VIEW CLINICAL HISTORY: 58 years Male, fever COMPARISON: 07/15/2017 FINDINGS: There is some motion artifact. No obvious infiltrate, effusion, or pneumothorax. Heart appears enlarged, although this may be exaggerated by the positioning and motion artifact. Bony structures are unremarkable. IMPRESSION: 1. No obvious infiltrate. However, due to positioning, cannot exclude left lower lobe infiltrate or mass. An area of presumed round atelectasis seen on CT performed 05/03/2018 is faintly visualized on this exam. 2. Depending on level of clinical suspicion, consider upright PA and lateral radiographs
[2019-03-05 20:33] LABS: ALANINE AMINOTRANSFERASE 8 U/L (21-72); ALBUMIN 2.7 g/dL (3.5-5.0); ALKALINE PHOSPHATASE 93 U/L (38-126); ANION GAP 11 (5-19); ASPARTATE AMINO TRANSFERASE 10 U/L (17-59); BILIRUBIN,DIRECT 0.6 mg/dL (0.0-0.4); BILIRUBIN,TOTAL 0.7 mg/dL (0.2-1.3); BLOOD UREA NITROGEN 20 mg/dL (7-20); CARBON DIOXIDE 28 mmol/L (22-30); CHLORIDE 97 mmol/L (98-107); GLUCOSE 155 mg/dL (75-110); POTASSIUM 3.9 mmol/L (3.6-5.0); SODIUM 136.1 mmol/L (137-145); TOTAL PROTEIN 5.7 g/dL (6.3-8.2)
[2019-03-05 20:36] LABS: ABSOLUTE LYMPHOCYTES# (MANUAL) 0.4 10^3/uL (0.5-4.7); ABSOLUTE MONOCYTES # (MANUAL) 0.4 10^3/uL (0.1-1.4); BAND NEUTROPHILS % (MANUAL) 6 % (3-5); BASOPHILS % (MANUAL) 0 % (0-2); EOSINOPHILS % (MANUAL) 0 % (0-6); LYMPHOCYTES % (MANUAL) 2 % (13-45); MONOCYTES % (MANUAL) 2 % (3-13); SEGMENTED NEUTROPHILS % (MAN) 90 % (42-78); TOTAL CELLS COUNTED 100
[2019-03-05 20:37] LABS: ANISOCYTOSIS 1+; PLATELET COMMENT ADEQUATE; POLYCHROMASIA SLIGHT
[2019-03-05] MEDS ORDERED: NORMAL SALINE 1000 ML 500 ML IV ONE (20:40)
[2019-03-05 20:44] LABS: NT PRO BNP > 35000 pg/mL (5-900)
[2019-03-05 20:47] LABS: TROPONIN I 0.048 ng/mL
[2019-03-05] MEDS ORDERED: NOREPINEPHRINE BITARTRATE INJ/PF 4 MG/4 ML SDV IV ONE (20:50)
[2019-03-05] MEDS ORDERED: DEXTROSE 5%-WATER 250 ML with NOREPINEPHRINE BITARTRATE 4 MG IV PRN ×2 (20:51)
--- NOTE | 2019-03-05 20:53 | ER Document Report ---
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 No additional history available at the time of my assessment as the patient is profoundly confused, cannot provide any meaningful information and there is no family available at the bedside. Apparently last received dialysis today. TRAVEL OUTSIDE OF THE [place] IN LAST 30 DAYS: No - Related Data Allergies/Adverse Reactions: cayenne Allergy (Intermediate, Verified 05/05/18 01:32) Past Medical History - General Information source: Patient - Social History Smoking Status: Former Smoker Frequency of alcohol use: None Drug Abuse: None Lives with: Spouse/Significant other Family History: Arthritis, CAD, COPD, CVA, DM, Hyperlipidemia, Hypertension, Malignancy, Thyroid Disfunction Patient has suicidal ideation: No Patient has homicidal ideation: No - Past Medical History Cardiac Medical History: Reports: Hx Atrial Fibrillation, Hx Congestive Heart Failure, Hx Coronary Artery Disease, Hx Hypercholesterolemia, Hx Hypertension Denies: Hx Heart Attack Pulmonary Medical History: Reports: Hx COPD, Hx Pneumonia Denies: Hx Asthma, Hx Bronchitis Neurological Medical History: Reports: Hx Cerebrovascular Accident - TIA. Denies: Hx Seizures Endocrine Medical History: Reports: Hx Diabetes Mellitus Type 2, Hx Hypothy roidism Renal/ Medical History: Reports: Hx End Stage Renal Disease, Hx Hemodialysis. Denies: Hx Peritoneal Dialysis GI Medical History: Reports: Hx Gastroesophageal Reflux Disease, Hx Colonoscopy, Hx Endoscopy Musculoskeletal Medical History: Reports Hx Arthritis, Reports Hx Musculoskeletal Trauma Psychiatric Medical History: Reports: Hx Anxiety, Hx Depression Traumatic Medical History: Reports: Hx Fractures - Feet Past Surgical History: Reports: Hx Cardiac Catheterization, Hx Cardiac Surgery - STENTS, Hx Coronary Stent, Hx Orthopedic Surgery - FEET, SHOULDER, Hx Vascular Surgery - fistula left arm, Other - Many eye surgeries - Immunizations Immunizations up to date: Yes Hx Diphtheria, Pertussis, Tetanus Vaccination: Yes Hx Pneumococcal Vaccination: 09/14/14 Review of Systems - Review of Systems Notes: Constitutional: Positive for fever. HENT: Negative for sore throat. Eyes: Negative for visual changes. Cardiovascular: Negative for chest pain. Respiratory: Positive for shortness of breath Gastrointestinal: Negative for abdominal pain, vomiting or diarrhea. Genitourinary: Negative for dysuria. Musculoskeletal: Negative for back pain. Skin: Negative for rash. Neurological: Negative for headaches, weakness or numbness. Positive for confusion 10 point ROS negative except as marked above and in HPI. Physical Exam - Vital signs Vitals: Resp 14 03/05/19 19:55 Interpretation: Hypotensive, Tachycardic, Tachypneic, Febrile Notes: PHYSICAL EXAMINATION: GENERAL: [place] in color, extremely ill in appearance, lethargic HEAD: Atraumatic, normocephalic. EYES: Pupils equal round and reactive to light, extraocular movements intact, sclera anicteric, conjunctiva are normal. ENT: nares patent, oropharynx clear without exudates. Dry mucous membranes. NECK: Normal range of motion, supple without lymphadenopathy LUNGS: Breath sounds clear to auscultation bilaterally and equal. No wheezes rales or rhonchi. HEART: Regular tachycardia without murmurs ABDOMEN: Soft, nontender, normoactive bowel sounds. No guarding, no rebound. No masses appreciated. EXTREMITIES: Normal range of motion, no pitting or edema. No cyanosis. NEUROLOGICAL: No focal neurological deficits. Moves all extremities spontaneously and on command. PSYCH: Lethargic, oriented to person and place only SKIN: Cool in the periphery although warm centrally, willis in color, poor turgor, extensive open wounds in the bilateral feet with strong malodorous discharge and associated necrotic tissue Course - Re-evaluation Re-evalutation: 03/05/19 20:51 Patient presents is critically ill, hypotensive, febrile, appears to be in severe septic picture. Patient has extraordinarily malodorous apparently wet gangrenous type wounds to his bilateral lower extremities which could be a probable source of infection. Patient alternatively could have a pneumonia, chest x-ray is unable to definitively exclude and the patient is hypoxic into the mid 80s on 3 L by nasal cannula which is not normal for him as he normally saturates in the low 90s on 2.5 L. The patient is globally altered, he does not know the year, current month or location. Not oriented to current events. The patient is profoundly hypotensive at the time of my initial evaluation with blood pressures into the 80s systolic, map of 50. The patient is unfortunately dialysis dependent patient, last dialyzed today this makes large volume fluid resuscitation unavailable option. He will be started on norepinephrine through peripheral line at this point until we can establish an internal jugular central vein access point. The patient will be moved to a trauma room for advanced resuscitation. At this point he is maintaining his airway, breathing appropriately and I will place him on BiPAP to improve his oxygenation. 03/05/19 21:42 Patient's blood pressure is improving on norepinephrine infusion currently up to 121/90 on 4 of norepinephrine will wean down to maintain map 65. Central line placed in the right internal jugular vein. Chest x-ray post placement does show the catheter crossing the midline however the entirety of the heart is also on the left side of the chest. I do believe that the central line is in the ap propriate location as there is no backflow into the line, no hematoma around the neck, and it does appear to be going to the right side of hard. I have attempted to contact radiology to discuss the chest x-ray but they do not answer the phone. Cefepime and vancomycin have been started. Patient remains critically ill and will continue to reassess at regular intervals. 2200 did speak with radiology who agrees that the central line is in the appropriate location 03/05/19 23:51 Documentation is necessarily delayed as I been at this patient's bedside continuously for the past 1 hour. The patient in summary had had improvement of his hemodynamics on norepinephrine infusion. The patient abruptly called out for help, was noted to anterior ventricular tachycardia and then have abrupt cardiac arrest. We are at bedside as this happened and chest compressions were immediately initiated. Patient was placed on pads, after 1 round of chest compressions the patient did have return of spontaneous circulation. He has no epinephrine was increased and an epinephrine infusion was ordered. The patient underwent intubation without administration of RSI medications, first-pass attempt was successful. Patient then had approximately 5 to 10 minutes before he again lost pulses going into PEA this time. The patient was coded for a total of 40 minutes for which has at the bedside direct and care throughout the entire time. The patient had no point regain pulses. However on the pulse check at 40 minutes the patient did have pulses. Bedside echocardiogram showed an organized rhythm. The patient had been given multiple amps of bicarb, calcium, epinephrine a total of 10 mg have been administered and he was likewise on a norepinephrine and epinephrine infusion. I had advised the at length that the patient was very high risk for rearrest, advised that his arrest was likely secondary to severe sepsis and that I have high suspicion that he would arrest again. After approximately 5 minutes the patient did again have a recurrent PEA arrest. Standard ACLS protocols were again followed. Bicarbonate infusion initiated. Additional rounds of epinephrine administered. Patient was noted to have a slow bradycardic PEA during pulse checks. Unfortunately the patient was unable to be successfully resuscitated and he was declared at 2343. - Vital Signs Vital signs: Temp Pulse Resp BP Pulse Ox 102.1 F H 11 L 104/54 L 92 03/05/19 21:38 03/05/19 22:10 03/05/19 22:10 03/05/19 22:10 - Laboratory Result Diagrams: 03/05/19 20:00 03/05/19 20:00 Laboratory results interpreted by me: 03/05/19 03/05/19 03/05/19 20:00 20:00 20:00 WBC 19.6 H RBC 2.90 L Hgb 8.1 L Hct 25.9 L MCHC 31.4 L RDW 16.5 H Seg Neuts % (Manual) 90 H Band Neutrophils % 6 H Lymphocytes % (Manual) 2 L Monocytes % (Manual) 2 L Abs Neuts (Manual) 18.8 H Abs Lymphs (Manual) 0.4 L PT Sodium 136.1 L Chloride 97 L Creatinine 4.97 H Est GFR ( Amer) 15 L Est GFR (Non-Af Amer) 12 L Glucose 155 H POC Glucose Lactic Acid Calcium 8.0 L Direct Bilirubin 0.6 H AST 10 L ALT 8 L NT-Pro-B Natriuret Pep > 51539 H Total Protein 5.7 L Albumin 2.7 L 03/05/19 03/05/19 03/05/19 20:00 20:00 20:17 WBC RBC Hgb Hct MCHC RDW Seg Neuts % (Manual) Band Neutrophils % Lymphocytes % (Manual) Monocytes % (Manual) Abs Neuts (Manual) Abs Lymphs (Manual) PT 17.7 H Sodium Chloride Creatinine Est GFR ( Amer) Est GFR (Non-Af Amer) Glucose POC Glucose 162 H Lactic Acid 2.3 H Calcium Direct Bilirubin AST ALT NT-Pro-B Natriuret Pep Total Protein Albumin 03/05/19 22:56 WBC RBC Hgb Hct MCHC RDW Seg Neuts % (Manual) Band Neutrophils % Lymphocytes % (Manual) Monocytes % (Manual) Abs Neuts (Manual) Abs Lymphs (Manual) PT Sodium Chloride Creatinine Est GFR ( Amer) Est GFR (Non-Af Amer) Glucose POC Glucose 147 H Lactic Acid Calcium Direct Bilirubin AST ALT NT-Pro-B Natriuret Pep Total Protein Albumin - Diagnostic Test Radiology reviewed: Image reviewed, Reports reviewed Radiology results interpreted by me: 03/05/19 23:57 Chest x-ray: Cardiomegaly Chest x-ray 2: Right internal jugular vein appears to be in the superior vena cava, heart is toward the left Procedures - Central Line Right Internal jugular Consent obtained: No - Emergent, patient altered Central line pre-insertion: Sterile PPE donned, Chloraprep applied, Sterile drapes applied Central line lumen type: Triple Anesthetic type: 1% Lidocaine mL's of anesthesia: 3 Ultrasound guided: Yes CM at insertion site: 18 Line secured with sutures: Yes Central line post-insertion: Blood return from lumens, Biopatch applied, Sutured, Sterile dressing applied, Position confirmed w/ CXR Number of attempts: 1 Complications: No - Intubation Orotracheal Airway evaluation: Copious secretions, Large tongue, Obese Mallampati Classification: Class 1 Medications: Other - No medications administered Intubation method: Orotracheal Blade type: Wendy Blade size: 4 Equipment used: Glidescope ETT size: 8.0 ETT secured at: Lips ETT secured at (cm): 23 Breath Sounds after Intubation: Equal End tidal CO2 confirmed: Yes Ventilator settings: SIMV Tidal volume: 400 FiO2: 50 Respirations: 15 PEEP: 5 Post Intubation Xray: Yes Intubation Complications: No complications Critical Care Note - Critical Care Note Total time excluding time spent on procedures (mins): 95 Comments: Critical care time spent obtaining history from patient or surrogate, discussions with consultants, development of treatment plan with patient or surrogate, evaluation of patient's response to treatment, examination of patient, ordering and performing treatments and interventions, ordering and review of laboratory studies, re-evaluation of patient's condition, ordering and review of radiographic studies and review of old charts Discharge - Discharge Clinical Impression: Severe sepsis, Gas gangrene, Hypoxia, Delirium, CKD (chronic kidney disease) stage 5, GFR less than 15 ml/min, Cardiac arrest COPD (chronic obstructive pulmonary disease) Qualifiers: COPD type: unspecified COPD Qualified Code(s): J44.9 - Chronic obstructive pulmonary disease, unspecified Disposition: Referrals: PADMINI BOND MD [Primary Care Provider] - Follow up as needed
[2019-03-05] MEDS ORDERED: CEFEPIME 2 GM/D5W RTU 2 GM/50 ML RTUPB IV ONE (21:30)
[2019-03-05] MEDS ORDERED: VANCOMYCIN HCL INJ 1000 MG VIAL IV ONE (21:43)
--- NOTE | 2019-03-05 22:03 | RADIOLOGY REPORT (SQ) ---
EXAM DESCRIPTION: [facility]: XR CHEST 1 VIEW CLINICAL HISTORY: 58 years Male, central line placement COMPARISON: 03/05/2019 at 2002 FINDINGS: A right IJ line has been placed. The tip slightly curved to the left, the subcarinal region. This is likely in the upper right atrium. Mediastinum is slightly shifted towards the left. There is still partial density superimposed over the cardiac silhouette, suggesting partial left lower lobe consolidation or mass. No pneumothorax. Case discussed with GABRIELLA JOE via phone on 03/05/2019 at 9:01 PM CDT IMPRESSION: 1. Right IJ line placement, tip likely in the upper right atrium. 2. No pneumothorax 3. Otherwise unchanged
[2019-03-05] MEDS ORDERED: EPINEPHRINE INJ/PF 1 MG/1 ML AMPULE ONE ×2 (22:45)
[2019-03-05] MEDS ORDERED: CALCIUM GLUCONATE 1000 MG/10 ML INJ IV ONE (22:55)
--- NOTE | 2019-03-05 23:01 | RADIOLOGY REPORT (SQ) ---
EXAM DESCRIPTION: [facility]: XR FOOT 3 OR MORE VIEWS BILATERAL Views: 3 each foot CLINICAL HISTORY: 58 years Male, eval osteo COMPARISON: None. FINDINGS: Left: Extensive postoperative changes are noted, with fixation screws traversing the 2nd and 3rd metatarsals and TMT joints. There is a fixation plate with screws spanning the 1st TMT joint and a long screw extending through the 1st metatarsal and into the posterior talus. There is associated chronic sclerosis. No lytic bone changes or acute periosteal reaction. Extensive vascular calcifications are noted. A large ulcerated wound is seen posterior to the calcaneus. There are no associated lytic changes in the calcaneus. Right: Postoperative changes with screw extending through the 1st metatarsal into the calcaneus and a medial sideplate with screws across the 1st TMT joint. Screw extends along the 2nd metatarsal, spanning the TMT joint. Is also an oblique screw extending from proximal 5th metatarsal across to the medial midfoot. There is a large soft tissue wound posterior to the calcaneus, extending down to the calcaneus. No definite lytic changes in the calcaneus. Scattered soft tissue air extends along the plantar aspect of the foot up to the mid metatarsal level. Extensive vascular calcifications are noted. IMPRESSION: 1. Bilateral midfoot fusion as described. 2. Large soft tissue wound posterior to the right calcaneus, with associated scattered soft tissue air suspicious for gangrenous cellulitis. 3. A smaller ulcerated wound is posterior to the left calcaneus, without associated soft tissue air. 4. No lytic bone changes to suggest osteomyelitis by radiographs, although MRI would be more sensitive. Although there is extensive hardware in the midfoot which would create artifact, MRI would likely be diagnostic in the posterior calcaneus.
[2019-03-05] MEDS ORDERED: EPINEPHRINE INJ 1 MG/10 ML DISP.SYRIN ONE (23:04)
[2019-03-05] MEDS ORDERED: SODIUM BICARBONATE 8.4% INJ 50 MEQ/50 ML DISP.SYRIN ONE ×2 (23:11→23:19)
[2019-03-05] MEDS ORDERED: FUROSEMIDE INJ/PF 20 MG/2 ML SDV ONE (23:17)
--- NOTE | 2019-03-05 23:48 | RADIOLOGY REPORT (SQ) ---
CLINICAL HISTORY: ETT PLACEMENT COMPARISON: March 05, 2019. TECHNIQUE: XR CHEST 1 VIEW 03/05/2019 12:00 AM CDT FINDINGS: Cardiac silhouette is normal in size. There is extensive airspace disease throughout the right upper lobe. There is a small left pleural effusion. There is no pneumothorax. There are no acute osseous findings. Endotracheal tube tip is in the midtrachea. Adjacent is unchanged. IMPRESSION: Extensive right upper lobe pneumonia.
[2019-03-06 00:43] VITALS: BP 67/19
--- NOTE | 2019-03-06 09:33 | EKG REPORT ---
SEVERITY:- ABNORMAL ECG - SINUS TACHYCARDIA ABNRM R PROG, CONSIDER ASMI OR LEAD PLACEMENT NONSPECIFIC T ABNORMALITIES, LATERAL LEADS BORDERLINE PROLONGED QT INTERVAL BASELINE ARTIFACT.DEFECTIVE EKG.PLEASE REPEAT : Confirmed by: Hoda Marques MD 06-Mar-2019 09:32:50
== END 2019-03-06 04:00 | disposition expired ==
LOC: ER 19:24
DX: R65.20 Severe sepsis without septic shock (principal); E11.52 Type 2 diabetes mellitus with diabetic peripheral angiopathy with gangrene; A48.0 Gas gangrene; I47.2 Ventricular tachycardia; I46.9 Cardiac arrest, cause unspecified; I13.11 Hypertensive heart and chronic kidney disease without heart failure, with stage 5 chronic kidney disease, or end stage renal disease; E11.22 Type 2 diabetes mellitus with diabetic chronic kidney disease; N18.5 Chronic kidney disease, stage 5; Z99.2 Dependence on renal dialysis; R09.02 Hypoxemia; I95.9 Hypotension, unspecified; J44.9 Chronic obstructive pulmonary disease, unspecified; Z99.81 Dependence on supplemental oxygen; R41.0 Disorientation, unspecified; I25.10 Atherosclerotic heart disease of native coronary artery without angina pectoris; Z95.5 Presence of coronary angioplasty implant and graft; R06.02 Shortness of breath; Z91.018 Allergy to other foods; Z87.891 Personal history of nicotine dependence
CPT/HCPCS: 93005; 99291; 99292; 96365; 96366; 96368; 36415; 87040; 82962; 85025; 85610; 87077; 80053; 84484; 87186; 82803; 83605; 83880; 71045; 73630; 94660; 93010; 36556; 31500; C1751; A6266; A9270; J0610; J0171; J3490 ×2; J7060; J7030; J3370; J0282; J0692